=== PATIENT | female | born 1965 | race African-American/Black ===

== ENCOUNTER → 2016-03-29 | Outpatient (REF) | payer OTHER | LOC: M SFHCPLAZ 11:37 | PROVIDERS: ATTEND Family Medicine | DX: G40.909 Epilepsy, unspecified, not intractable, without status epilepticus (principal) ==

== ENCOUNTER → 2016-04-09 | Outpatient (REF) | payer OTHER ==
[2016-04-09 11:49] LABS: MEAN CORPUSCULAR HEMOGLOBIN 30.6 pg (27.0-33.0); MEAN CORPUSCULAR HGB CONC 33.7 g/dl (32.0-36.5); MEAN CORPUSCULAR VOLUME 90.8 fl (80.0-96.0); RED CELL DISTRIBUTION WIDTH 12.2 % (11.5-14.5); WHITE BLOOD COUNT 5.1 K/mm3 (4.0-10.0)
== END ==
LOC: M SFHCPLAZ 08:58
PROVIDERS: ATTEND Internal Medicine
DX: E11.9 Type 2 diabetes mellitus without complications (principal); R56.9 Unspecified convulsions; I10 Essential (primary) hypertension; E78.2 Mixed hyperlipidemia

== ENCOUNTER → 2016-05-25 | Outpatient (REF) | payer OTHER ==
[2016-05-25 13:11] LABS: ANION GAP 7 MEQ/L (8-16); BASO % 0.5 % (0.0-1.0); BLOOD UREA NITROGEN 14 MG/DL (7-18); CALCIUM LEVEL 8.5 MG/DL (8.5-10.1); CARBON DIOXIDE LEVEL 29 MEQ/L (21-32); CHLORIDE LEVEL 102 MEQ/L (98-107); CREATININE FOR GFR 0.95 MG/DL (0.55-1.02); EOS % 0.9 % (0.0-3.0); GLOMERULAR FILTRATION RATE > 60.0 (>51); GLUCOSE, FASTING 62 MG/DL (70-105); LARGE UNSTAINED CELL # 0.1 K/mm3 (0.0-0.4); LARGE UNSTAINED CELL % 1.7 % (0.0-4.0); LYMPH % 62.5 % (24.0-44.0); MEAN CORPUSCULAR HEMOGLOBIN 30.7 pg (27.0-33.0); MEAN CORPUSCULAR HGB CONC 33.5 g/dl (32.0-36.5); MEAN CORPUSCULAR VOLUME 91.7 fl (80.0-96.0); MONO # 0.3 K/mm3 (0.0-0.8); MONO % 6.9 % (0.0-5.0); NEUTROPHILS # 1.3 K/mm3 (1.8-7.7); NEUTROPHILS % 27.5 % (36.0-66.0); PLATELET COUNT, AUTOMATED 207 k/mm3 (150-450); POTASSIUM SERUM 4.8 MEQ/L (3.5-5.1); RED CELL DISTRIBUTION WIDTH 11.9 % (11.5-14.5); SODIUM LEVEL 138 MEQ/L (136-145); TOTAL PROTEIN 7.9 GM/DL (6.4-8.2); WHITE BLOOD COUNT 4.8 K/mm3 (4.0-10.0)
[2016-05-26 10:15] LABS: FREE KAPPA LIGHT CHAINS SERUM 155.04 mg/L (3.30-19.40); FREE LAMBDA LIGHT CHAINS SERUM 55.73 mg/L (5.71-26.30); KAPPA/LAMBDA RATIO SERUM 2.78 (0.26-1.65)
[2016-05-27 10:03] LABS: ALBUMIN 3.82 GM/DL (3.29-5.55); ALBUMIN % 48.3 % (55.8-66.1); GAMMA GLOBULIN % 29.3 % (11.1-18.8)
== END ==
LOC: M LABDRAWP 11:26
PROVIDERS: ATTEND Internal Medicine Medical Oncology
DX: Z01.818 Encounter for other preprocedural examination (principal); D47.2 Monoclonal gammopathy

== ENCOUNTER → 2016-05-25 | Outpatient (REF) | payer OTHER ==
[2016-05-25 13:10] LABS: ANION GAP 7 MEQ/L (8-16); BLOOD UREA NITROGEN 14 MG/DL (7-18); CALCIUM LEVEL 8.4 MG/DL (8.5-10.1); CARBON DIOXIDE LEVEL 28 MEQ/L (21-32); CHLORIDE LEVEL 103 MEQ/L (98-107); CREATININE FOR GFR 0.96 MG/DL (0.55-1.02); GLOMERULAR FILTRATION RATE > 60.0 (>51); GLUCOSE, FASTING 63 MG/DL (70-105); POTASSIUM SERUM 4.8 MEQ/L (3.5-5.1); SODIUM LEVEL 138 MEQ/L (136-145)
== END ==
LOC: M SFHCPLAZ 10:01
PROVIDERS: ATTEND Internal Medicine
DX: I10 Essential (primary) hypertension (principal)

== ENCOUNTER → 2016-05-31 | Outpatient (CLI) | payer OTHER ==
--- NOTE | 2016-05-31 10:44 | REP ---
Left foot CT for osteoarthritis: There are no comparison studies. There is mild spurring of the tibiotalar articulation anteriorly without joint space narrowing compatible with mild osteoarthritis. The subtalar articulation is unremarkable. Sustentaculum is unremarkable. The tarsal articulations and the tarsometatarsal articulations are unremarkable. The metatarsophalangeal articulations are unremarkable except for mild spurring at the great toe compatible with mild great toe osteoarthritis. The PIP and DIP articulations are unremarkable. Mineralization is normal. Signed by Zachery Burris MD 05/31/2016 10:36 A
== END ==
LOC: M RAD 09:44
PROVIDERS: ATTEND Physician Assistant
DX: M19.072 Primary osteoarthritis, left ankle and foot (principal)

== ENCOUNTER → 2016-06-24 | Outpatient (REF) | payer OTHER | LOC: M SFHCPLAZ 14:25 | PROVIDERS: ATTEND Family Medicine | DX: I10 Essential (primary) hypertension (principal); E55.9 Vitamin D deficiency, unspecified; Z53.9 Procedure and treatment not carried out, unspecified reason ==

== ENCOUNTER 2016-12-04 04:04 | Emergency (ER) | payer MEDICAID, OTHER ==
[~2016-12-04] VITALS: Ht 162.6 cm; Wt 85.0 kg
[2016-12-04 04:09] VITALS: BP 144/93
[2016-12-04] MEDS ORDERED: AMLO1TAB21 PO (04:15)
[2016-12-04] MEDS ORDERED: OMEP40CA2 PO (04:15)
[2016-12-04] MEDS ORDERED: METF500T13 PO (04:15)
[2016-12-04] MEDS ORDERED: KETOROLAC 60 MG/2 ML VIAL (J1885) IM ONE (04:45)
[2016-12-04] MEDS ORDERED: KETO10TAB PO (05:10)
--- NOTE | 2016-12-04 09:24 | REP ---
REASON: Pain after trauma. There are no priors. Multiple views of the right ribs show no evidence of an acute fracture. The accompanying frontal view of the chest shows minimal patchy right CP angle opacities representing a change from the prior portable exam and likely secondary to subsegmental atelectatic change from splinting due to pain. IMPRESSION: No fracture. Lung field findings as described above. Signed by Lawrence Nino DO 12/04/2016 09:39 A
== END 2016-12-04 05:44 | disposition home or self-care (01) ==
LOC: M ED 04:04
DX: S20.221A Contusion of right back wall of thorax, initial encounter (principal); W01.198A Fall on same level from slipping, tripping and stumbling with subsequent striking against other object, initial encounter; Y92.89 Other specified places as the place of occurrence of the external cause; Y93.89 Activity, other specified; Y99.8 Other external cause status; E11.9 Type 2 diabetes mellitus without complications; I10 Essential (primary) hypertension; K21.9 Gastro-esophageal reflux disease without esophagitis; Z79.84 Long term (current) use of oral hypoglycemic drugs; Z79.899 Other long term (current) drug therapy; Z88.0 Allergy status to penicillin
CPT/HCPCS: 71101; 96372; 99282; J1885

== ENCOUNTER → 2017-04-08 | Outpatient (REF) | payer OTHER ==
[2017-04-08 16:37] LABS: ANION GAP 6 MEQ/L (8-16); BLOOD UREA NITROGEN 13 MG/DL (7-18); CALCIUM LEVEL 8.8 MG/DL (8.5-10.1); CARBON DIOXIDE LEVEL 30 MEQ/L (21-32); CHLORIDE LEVEL 105 MEQ/L (98-107); CREATININE FOR GFR 0.91 MG/DL (0.55-1.30); GLOMERULAR FILTRATION RATE > 60.0 (>51); GLUCOSE, FASTING 86 MG/DL (70-100); POTASSIUM SERUM 4.2 MEQ/L (3.5-5.1); SODIUM LEVEL 141 MEQ/L (136-145)
[2017-04-08 17:11] LABS: CREATININE, URINE 32.9 MG/DL; MALB URINE SIEMENS < 5.0 MG/L; MAU/CREAT RATIO 15.1 MCG/MG (0.0-30.0)
[2017-04-08 17:47] LABS: ESTIMATED AVERAGE GLUCOSE 126 MG/DL (60-110)
== END ==
LOC: M SFHCPLAZ 12:34
DX: E11.9 Type 2 diabetes mellitus without complications (principal); I10 Essential (primary) hypertension

== ENCOUNTER → 2017-04-27 | Outpatient (CLI) | payer OTHER | LOC: M WHC 12:55 | DX: Z12.31 Encounter for screening mammogram for malignant neoplasm of breast (principal); Z80.3 Family history of malignant neoplasm of breast | CPT/HCPCS: 77067 ==

== ENCOUNTER → 2017-09-08 | Outpatient (REF) | payer OTHER | LOC: M SFHCLERA 12:21 | DX: L93.0 Discoid lupus erythematosus (principal) | CPT/HCPCS: 88305 ==

== ENCOUNTER 2017-09-26 04:32 | Emergency (ER) | payer OTHER ==
[2017-09-26] MEDS: PANTOPRAZOLE 40MG INJ (PROTONIX) (C9113) IV (05:25)
[2017-09-26] MEDS: NS 500 ML IV (05:25)
[2017-09-26] MEDS: MORPHINE 4 MG/ML 1ML VIAL/SYRINGE (J2270) IV (05:30)
[2017-09-26 05:32] LABS: HEMATOCRIT 38.6 % (36.0-47.0); MEAN CORPUSCULAR HGB CONC 33.7 g/dl (32.0-36.5); MEAN CORPUSCULAR VOLUME 92.1 fl (80.0-96.0); PLATELET COUNT, AUTOMATED 160 10^3/uL (150-450); RED BLOOD COUNT 4.19 10^6/uL (4.00-5.40); WHITE BLOOD COUNT 8.7 10^3/uL (4.0-10.0)
[2017-09-26 05:33] LABS: ADD MANUAL DIFFER YES; DIFF SLIDE NUMBER 90; POSITIVE DIFF POS FLAG
[2017-09-26 05:44] LABS: ALBUMIN 3.2 GM/DL (3.2-5.2); ALBUMIN/GLOBULIN RATIO 0.64 (1.00-1.93); ALKALINE PHOSPHATASE 65 U/L (45-117); ALT/SGPT 19 U/L (12-78); ANION GAP 7 MEQ/L (8-16); AST/SGOT 10 U/L (7-37); BILIRUBIN,DIRECT 0.1 MG/DL (0.0-0.2); BILIRUBIN,TOTAL 0.3 MG/DL (0.2-1.0); BLOOD UREA NITROGEN 13 MG/DL (7-18); CALCIUM LEVEL 8.9 MG/DL (8.5-10.1); CARBON DIOXIDE LEVEL 29 MEQ/L (21-32); CHLORIDE LEVEL 109 MEQ/L (98-107); CREATININE FOR GFR 0.91 MG/DL (0.55-1.30); GLOMERULAR FILTRATION RATE > 60.0 (>51); GLUCOSE, FASTING 81 MG/DL (70-100); LIPASE 147 U/L (73-393); SODIUM LEVEL 145 MEQ/L (136-145); TOTAL PROTEIN 8.2 GM/DL (6.4-8.2)
[2017-09-26 05:47] LABS: ATYPICAL LYMPH 3 % (0-5); LYMPHOCYTES 52 % (16-52); MONOCYTES 4 % (0-8); NEUTROPHILS 41 % (35-75); PLATELET ESTIMATE NORMAL (NORMAL)
[2017-09-26] MEDS: GASTROGRAFIN SOLUTION 30ML PO ×2 (05:59→06:29)
[2017-09-26 07:06] LABS: APPEARANCE, URINE CLEAR (CLEAR); BACTERIA, URINE AUTO 1+ (NEGATIVE); BILIRUBIN, URINE AUTO NEGATIVE (NEGATIVE); BLOOD, URINE BLOOD NEGATIVE (NEGATIVE); COLOR, URINE STRAW (YELLOW); GLUCOSE, URINE (UA) AUTO NEGATIVE (NEGATIVE); KETONE, URINE AUTO NEGATIVE (NEGATIVE); LEUKOCYTE ESTERASE, URINE AUTO NEGATIVE (NEGATIVE); MUCUS, URINE SMALL (NEGATIVE); NITRITE, URINE AUTO NEGATIVE (NEGATIVE); PROTEIN, URINE AUTO NEGATIVE (NEGATIVE); RBC, URINE AUTO 1 /HPF (0-3); SPECIFIC GRAVITY URINE AUTO 1.004 (1.002-1.035); SQUAMOUS EPITHELIAL CELL UR AU 3 /HPF (0-6); UROBILINOGEN, URINE AUTO 0.2 mg/dL (0.0-2.0); WBC, URINE AUTO 1 /HPF (0-3)
[2017-09-26] MEDS ORDERED: ISOVUE-370 76% 100ML VIAL (Q9967) As Ordered (07:17)
== END 2017-09-26 09:13 | disposition home or self-care (01) ==
LOC: M ED 04:32
DX: K21.9 Gastro-esophageal reflux disease without esophagitis (principal); Z98.84 Bariatric surgery status; E11.9 Type 2 diabetes mellitus without complications; I10 Essential (primary) hypertension; J45.909 Unspecified asthma, uncomplicated; Z88.0 Allergy status to penicillin; Z79.899 Other long term (current) drug therapy
CPT/HCPCS: C9113

== ENCOUNTER → 2017-10-05 | Outpatient (CLI) | payer OTHER ==
[2017-10-05 14:35] LABS: ANION GAP 8 MEQ/L (8-16); BLOOD UREA NITROGEN 15 MG/DL (7-18); CALCIUM LEVEL 8.8 MG/DL (8.5-10.1); CARBON DIOXIDE LEVEL 28 MEQ/L (21-32); CHLORIDE LEVEL 106 MEQ/L (98-107); GLOMERULAR FILTRATION RATE > 60.0 (>51); GLUCOSE, FASTING 83 MG/DL (70-100); POTASSIUM SERUM 3.7 MEQ/L (3.5-5.1); SODIUM LEVEL 142 MEQ/L (136-145)
== END ==
LOC: M LAB 13:06
DX: Z01.812 Encounter for preprocedural laboratory examination (principal); M20.12 Hallux valgus (acquired), left foot; M20.42 Other hammer toe(s) (acquired), left foot
CPT/HCPCS: 93005

== ENCOUNTER 2017-10-11 05:37 | Day surgery (SDC) | payer OTHER ==
[2017-10-11] MEDS ORDERED: ROPIvacaine 0.5% 30 ML INJECTION (J2795 PER 1MG) (05:38)
[2017-10-11] MEDS ORDERED: dexameTHASONE 10 MG/1 ML VIAL PRES.FREE (J1100) (05:38)
[2017-10-11] MEDS ORDERED: fentaNYL 100 MCG/2 ML INJECTION (J3010) As Ordered ×3 (06:50→09:37)
[2017-10-11] MEDS ORDERED: MIDAZOLAM INJ 2 MG/2 ML VIAL (J2250) As Ordered ×2 (06:50→07:14)
[2017-10-11] MEDS ORDERED: LIDOCAINE 2% INJ 100 MG/5 ML SDV (FOR ANES.) As Ordered (07:14)
[2017-10-11] MEDS ORDERED: PROPOFOL 200 MG/20 ML VIAL As Ordered ×2 (07:14→08:18)
[2017-10-11] MEDS ORDERED: ROCURONIUM BROMIDE 50 MG/5 ML VIAL As Ordered (07:14)
[2017-10-11] MEDS: fentaNYL 100 MCG/2 ML INJECTION (J3010) IV ×2 (07:19→11:55)
[2017-10-11] MEDS: MIDAZOLAM INJ 2 MG/2 ML VIAL (J2250) IV (07:19)
[2017-10-11] MEDS ORDERED: dexameTHASONE 4 MG/ML 1ML VIAL (J1100) As Ordered (08:37)
[2017-10-11] MEDS ORDERED: HYDROmorphone HCL 2 MG/ML 1ML VIAL (J1170) As Ordered (10:08)
[2017-10-11] MEDS: BUPIVACAINE HCL 0.5% 30 ML VIAL As Ordered (10:48)
[2017-10-11] MEDS: LR 1,000 ML IV (11:47)
[2017-10-11] MEDS ORDERED: PERCOCET 5MG/325MG TAB As Ordered (11:53)
[2017-10-11] MEDS: PERCOCET 5MG/325MG TAB PO (11:55)
[2017-10-11] MEDS ORDERED: oxyCODONE 5MG TAB PO ×2 (12:00)
[2017-10-11] MEDS ORDERED: LR 1,000 ML IV (12:00)
[2017-10-11] MEDS ORDERED: ONDANSETRON 4MG/2ML VIAL (J2405) IV (12:00)
== END 2017-10-11 13:35 | disposition home or self-care (01) ==
LOC: M SDC 05:37
DX: M20.12 Hallux valgus (acquired), left foot (principal); M20.42 Other hammer toe(s) (acquired), left foot; Z79.899 Other long term (current) drug therapy
CPT/HCPCS: 28296

== ENCOUNTER → 2017-11-08 | Outpatient (CLI) | payer OTHER ==
[~2017-11-08] MED LIST: GASTROGRAFIN SOLUTION 30ML (Q9963) As Ordered; ISOVUE-370 76% 100ML VIAL (Q9967) As Ordered
[2017-11-08 12:01] LABS: BASO % 0.2 % (0.0-1.0); EOS % 0.4 % (0.0-3.0); HEMATOCRIT 35.9 % (36.0-47.0); HEMOGLOBIN 12.3 g/dl (12.0-15.5); IMMATURE GRANULOCYTE % 0.2 % (0-3.0); LYMPH # 2.5 10^3/uL (1.5-4.5); LYMPH % 49.8 % (24.0-44.0); MEAN CORPUSCULAR HEMOGLOBIN 31.1 pg (27.0-33.0); MEAN CORPUSCULAR HGB CONC 34.3 g/dl (32.0-36.5); MEAN CORPUSCULAR VOLUME 90.7 fl (80.0-96.0); MONO # 0.3 10^3/uL (0.0-0.8); MONO % 6.8 % (0.0-5.0); NEUTROPHILS # 2.1 10^3/uL (1.8-7.7); NEUTROPHILS % 42.6 % (36.0-66.0); PLATELET COUNT, AUTOMATED 132 10^3/uL (150-450); RED BLOOD COUNT 3.96 10^6/uL (4.00-5.40); RED CELL DISTRIBUTION WIDTH 12.6 % (11.5-14.5)
[2017-11-08 12:53] LABS: ALBUMIN 3.5 GM/DL (3.2-5.2); ALKALINE PHOSPHATASE 73 U/L (45-117); ALT/SGPT 21 U/L (12-78); ANION GAP 7 MEQ/L (8-16); AST/SGOT 21 U/L (7-37); BILIRUBIN,TOTAL 0.3 MG/DL (0.2-1.0); BLOOD UREA NITROGEN 12 MG/DL (7-18); CALCIUM LEVEL 8.9 MG/DL (8.5-10.1); CARBON DIOXIDE LEVEL 24 MEQ/L (21-32); CHLORIDE LEVEL 112 MEQ/L (98-107); CREATININE FOR GFR 0.84 MG/DL (0.55-1.30); GLOMERULAR FILTRATION RATE > 60.0 (>51); GLUCOSE, FASTING 96 MG/DL (70-100); LIPASE 137 U/L (73-393); POTASSIUM SERUM 3.7 MEQ/L (3.5-5.1); SODIUM LEVEL 143 MEQ/L (136-145); TOTAL PROTEIN 8.8 GM/DL (6.4-8.2)
[2017-11-08 17:00] LABS: ALBUMIN/GLOBULIN RATIO 0.66 (1.00-1.93)
== END ==
LOC: M RAD 11:38
DX: R10.0 Acute abdomen (principal); Z98.84 Bariatric surgery status
CPT/HCPCS: Q9963

== ENCOUNTER → 2017-11-10 | Outpatient (REF) | payer OTHER | LOC: M SFHCPLAZ 15:39 | DX: R10.10 Upper abdominal pain, unspecified (principal) ==

== ENCOUNTER → 2017-11-14 | Outpatient (REF) | payer OTHER ==
[2017-11-14 20:46] LABS: BASO % 0.2 % (0.0-1.0); EOS % 0.4 % (0.0-3.0); HEMATOCRIT 38.5 % (36.0-47.0); HEMOGLOBIN 12.7 g/dl (12.0-15.5); IMMATURE GRANULOCYTE % 0.2 % (0-3.0); LYMPH # 2.2 10^3/uL (1.5-4.5); LYMPH % 49.9 % (24.0-44.0); MEAN CORPUSCULAR HEMOGLOBIN 30.4 pg (27.0-33.0); MEAN CORPUSCULAR VOLUME 92.1 fl (80.0-96.0); MONO # 0.3 10^3/uL (0.0-0.8); MONO % 6.2 % (0.0-5.0); NEUTROPHILS # 1.9 10^3/uL (1.8-7.7); NEUTROPHILS % 43.1 % (36.0-66.0); PLATELET COUNT, AUTOMATED 166 10^3/uL (150-450); RED BLOOD COUNT 4.18 10^6/uL (4.00-5.40); RED CELL DISTRIBUTION WIDTH 12.7 % (11.5-14.5); WHITE BLOOD COUNT 4.5 10^3/uL (4.0-10.0)
[2017-11-14 21:01] LABS: ALBUMIN 3.6 GM/DL (3.2-5.2); ALBUMIN/GLOBULIN RATIO 0.71 (1.00-1.93); ALKALINE PHOSPHATASE 82 U/L (45-117); ALT/SGPT 20 U/L (12-78); ANION GAP 11 MEQ/L (8-16); AST/SGOT 22 U/L (7-37); BILIRUBIN,TOTAL 0.3 MG/DL (0.2-1.0); BLOOD UREA NITROGEN 13 MG/DL (7-18); C REACTIVE PROTEIN QUANTITATIV 0.54 MG/DL (0.00-0.30); CALCIUM LEVEL 8.8 MG/DL (8.5-10.1); CARBON DIOXIDE LEVEL 23 MEQ/L (21-32); CHLORIDE LEVEL 108 MEQ/L (98-107); CREATININE FOR GFR 0.83 MG/DL (0.55-1.30); GLOMERULAR FILTRATION RATE > 60.0 (>51); GLUCOSE, FASTING 77 MG/DL (70-100); POTASSIUM SERUM 3.9 MEQ/L (3.5-5.1); SODIUM LEVEL 142 MEQ/L (136-145); TOTAL PROTEIN 8.7 GM/DL (6.4-8.2)
[2017-11-17 00:06] LABS: ANA (HEP2) Positive (.)
== END ==
LOC: M SFHCLERA 15:46
DX: L93.0 Discoid lupus erythematosus (principal)
CPT/HCPCS: 80053

== ENCOUNTER → 2017-11-23 | Outpatient (REF) | payer OTHER | LOC: M SFHCPLAZ 12:42 | DX: L93.0 Discoid lupus erythematosus (principal); R10.13 Epigastric pain ==

== ENCOUNTER 2017-12-23 10:28 | Emergency (ER) | payer OTHER | END 2017-12-23 11:19 | disposition home or self-care (01) | LOC: M ED 10:28 | DX: H61.22 Impacted cerumen, left ear (principal); E11.9 Type 2 diabetes mellitus without complications; I10 Essential (primary) hypertension; K21.9 Gastro-esophageal reflux disease without esophagitis; Z98.84 Bariatric surgery status; Z79.899 Other long term (current) drug therapy | CPT/HCPCS: 69209 ==

== ENCOUNTER 2018-01-05 08:39 | Day surgery (SDC) | payer OTHER ==
[~2018-01-05 08:39] MED LIST changes: -GASTROGRAFIN SOLUTION 30ML (Q9963) As Ordered; -ISOVUE-370 76% 100ML VIAL (Q9967) As Ordered; +PROPOFOL 200 MG/20 ML VIAL As Ordered
[2018-01-05] MEDS ORDERED: LIDOCAINE 2% INJ 100 MG/5 ML SDV (FOR ANES.) As Ordered (08:40)
[2018-01-05] MEDS: NS 1,000 ML IV (08:55)
[2018-01-05] MEDS ORDERED: fentaNYL 100 MCG/2 ML INJECTION (J3010) As Ordered (09:13)
[2018-01-05] MEDS ORDERED: LABETALOL HCL 100 MG/20 ML VIAL As Ordered (10:04)
[2018-01-05] MEDS ORDERED: PROPOFOL 200 MG/20 ML VIAL As Ordered (10:28)
== END 2018-01-05 11:05 | disposition home or self-care (01) ==
LOC: M OPP 08:39
DX: Z12.11 Encounter for screening for malignant neoplasm of colon (principal); D12.3 Benign neoplasm of transverse colon; K57.30 Diverticulosis of large intestine without perforation or abscess without bleeding; K64.8 Other hemorrhoids; K64.4 Residual hemorrhoidal skin tags; K22.8 Other specified diseases of esophagus; K91.89 Other postprocedural complications and disorders of digestive system; I10 Essential (primary) hypertension; E11.9 Type 2 diabetes mellitus without complications; M32.9 Systemic lupus erythematosus, unspecified; R56.9 Unspecified convulsions; Z98.0 Intestinal bypass and anastomosis status
CPT/HCPCS: 45380

== ENCOUNTER → 2018-03-07 | Outpatient (CLI) | payer OTHER ==
[~2018-03-07] MED LIST changes: +AMLO1TAB21 PO; +ARNU1INH; +AUGM0.0534; +DOXE100CA PO; +DOXE50CA; +ESTR1TAB; +FAMO40TA3; +FAMO40TA3 PO; +GABA600T4 PO; +HYDR200T3; +HYDR200T3 PO; +INDO25CA PO; +KEPP10002 PO; +KETO10TAB PO; +LEVE250T5 PO; +LEVETIRACETAM; +METF500T13 PO; +OMEP40CA2 PO; +PENT1TAB8 PO; +PRED20TA; -PROPOFOL 200 MG/20 ML VIAL As Ordered; +[UNRECOGNIZED DRUG - MIXTURE]
--- NOTE | 2018-03-08 03:30 | REP ---
Clinical: Preoperative assessment . Comparison: 07/24/2015 . Technique: PA and lateral. Findings: The mediastinum and cardiac silhouette are normal. The lung eric are clear and without acute consolidation, effusion, or pneumothorax. The skeletal structures are intact and normal. Impression: 1. No acute cardiopulmonary process. Electronically Signed by Darrin Collins MD 03/08/2018 03:22 A
== END ==
LOC: M RAD 10:26
PROVIDERS: ATTEND Plastic Surgery Surgery of the Hand
DX: Z01.818 Encounter for other preprocedural examination (principal); N62 Hypertrophy of breast

== ENCOUNTER → 2018-03-13 | Outpatient (REF) | payer OTHER ==
[~2018-03-13] MED LIST changes: +AMLO10TA5 PO; +CHLO25TA PO; +LISI10TA4 PO
[2018-03-13 17:46] LABS: ALT/SGPT 31 U/L (12-78); BILIRUBIN,TOTAL 0.2 MG/DL (0.2-1.0); BLOOD UREA NITROGEN 22 MG/DL (7-18); CALCIUM LEVEL 8.6 MG/DL (8.5-10.1); CARBON DIOXIDE LEVEL 26 MEQ/L (21-32); CHLORIDE LEVEL 106 MEQ/L (98-107); CREATININE FOR GFR 0.98 MG/DL (0.55-1.30); GLOMERULAR FILTRATION RATE > 60.0 (>51); GLUCOSE, FASTING 124 MG/DL (70-100); POTASSIUM SERUM 4.4 MEQ/L (3.5-5.1); SODIUM LEVEL 141 MEQ/L (136-145); TOTAL PROTEIN 8.2 GM/DL (6.4-8.2); TROPONIN I < 0.02 NG/ML (< 0.10)
[2018-03-13 17:47] LABS: BASO % 0.3 % (0.0-1.0); EOS % 0.1 % (0.0-3.0); HEMATOCRIT 37.1 % (36.0-47.0); HEMOGLOBIN 12.3 g/dl (12.0-15.5); LYMPH # 2.3 10^3/uL (1.5-4.5); MEAN CORPUSCULAR HEMOGLOBIN 29.9 pg (27.0-33.0); MEAN CORPUSCULAR HGB CONC 33.2 g/dl (32.0-36.5); MONO # 0.6 10^3/uL (0.0-0.8); NEUTROPHILS # 4.4 10^3/uL (1.8-7.7); PLATELET COUNT, AUTOMATED 250 10^3/uL (150-450); RED BLOOD COUNT 4.12 10^6/uL (4.00-5.40); WHITE BLOOD COUNT 7.3 10^3/uL (4.0-10.0)
[2018-03-13 18:18] LABS: MALB URINE SIEMENS 5.2 MG/L; MAU/CREAT RATIO 3.9 MCG/MG (0.0-30.0)
== END ==
LOC: M SFHCPLAZ 15:11
PROVIDERS: ATTEND Family Medicine
DX: Z01.818 Encounter for other preprocedural examination (principal); I16.0 Hypertensive urgency

== ENCOUNTER → 2018-03-17 | Outpatient (REF) | payer OTHER ==
[~2018-03-17] MED LIST changes: +PERCOCET PO
[2018-03-17 14:25] LABS: ALBUMIN 2.9 GM/DL (3.2-5.2); BLOOD UREA NITROGEN 16 MG/DL (7-18); CALCIUM LEVEL 8.8 MG/DL (8.5-10.1); CARBON DIOXIDE LEVEL 26 MEQ/L (21-32); CHLORIDE LEVEL 103 MEQ/L (98-107); CREATININE FOR GFR 0.99 MG/DL (0.55-1.30); GLOMERULAR FILTRATION RATE > 60.0 (>51); GLUCOSE, FASTING 91 MG/DL (70-100); MAGNESIUM LEVEL 2.1 MG/DL (1.8-2.4); PHOSPHORUS LEVEL 3.8 MG/DL (2.5-4.9); POTASSIUM SERUM 4.1 MEQ/L (3.5-5.1); SODIUM LEVEL 139 MEQ/L (136-145)
== END ==
LOC: M SFHCPLAZ 11:21
PROVIDERS: ATTEND Family Medicine
DX: I10 Essential (primary) hypertension (principal)

== ENCOUNTER 2018-03-21 07:49 | Day surgery (SDC) | payer OTHER ==
[~2018-03-21] VITALS: Ht 162.6 cm; Wt 91.1 kg
[2018-03-21] VITALS (7 sets, daily range): BP systolic 135–178; BP diastolic 76–91
[~2018-03-21 07:49] MED LIST changes: -AMLO10TA5 PO; -CHLO25TA PO; -LISI10TA4 PO; +LR 1,000 ML IV ONE; -PERCOCET PO
[2018-03-21] MEDS ORDERED: CLINDAMYCIN 600 MG/50 ML PREMIX BAG As Ordered ONE (08:13)
[2018-03-21] MEDS ORDERED: MIDAZOLAM INJ 2 MG/2 ML VIAL (J2250) As Ordered ONE (08:22)
[2018-03-21] MEDS ORDERED: PROPOFOL 200 MG/20 ML VIAL As Ordered ONE (08:22)
[2018-03-21] MEDS ORDERED: LIDOCAINE 2% INJ 100 MG/5 ML SDV (FOR ANES.) As Ordered ONE (08:22)
[2018-03-21] MEDS ORDERED: fentaNYL 100 MCG/2 ML INJECTION (J3010) As Ordered ONE ×4 (08:22→14:34)
[2018-03-21] MEDS ORDERED: CHLO25TA PO (08:29)
[2018-03-21] MEDS ORDERED: AMLO10TA5 PO (08:29)
[2018-03-21] MEDS ORDERED: LISI10TA4 PO (08:29)
[2018-03-21] MEDS ORDERED: SCOPOLAMINE 1MG TRANSDERMAL PATCH As Ordered ONE (08:58)
[2018-03-21] MEDS ORDERED: SCOPOLAMINE 1MG TRANSDERMAL PATCH TOP ONE ×4 (09:15→09:30)
[2018-03-21] MEDS ORDERED: EPINEPHrine 1MG/ML INJ 30ML MD-VIAL As Ordered ONE (09:31)
[2018-03-21] MEDS ORDERED: LIDOCAINE 1% MDV 20ML VIAL As Ordered ONE (09:31)
[2018-03-21] MEDS ORDERED: HYDROmorphone HCL 2 MG/ML 1ML VIAL (J1170) As Ordered ONE (10:26)
[2018-03-21] MEDS ORDERED: dexameTHASONE 4 MG/ML 1ML VIAL (J1100) As Ordered ONE (10:33)
[2018-03-21] MEDS ORDERED: ONDANSETRON 4MG/2ML VIAL (J2405) As Ordered ONE ×2 (10:34→13:54)
[2018-03-21] MEDS ORDERED: HEPARIN SOD (PORCINE) 5000 UNITS/ML VIAL As Ordered ONE (13:06)
[2018-03-21] MEDS ORDERED: PHENYLephrine HCL 500 MCG/5 ML (100MCG/ML) SYRINGE (J2370) As Ordered ONE (13:33)
[2018-03-21] MEDS ORDERED: ROCURONIUM BROMIDE 50 MG/5 ML VIAL As Ordered ONE (13:40)
[2018-03-21] MEDS ORDERED: GLYCOPYRROLATE INJ 0.2 MG/ML 2 ML VIAL As Ordered ONE (13:59)
[2018-03-21] MEDS ORDERED: NEOSTIGMINE 10 MG/10 ML VIAL (J2710) As Ordered ONE (13:59)
--- NOTE | 2018-03-21 14:15 | POST-OPPD ---
Postoperative Procedure Note Date Of Procedure: Mar 21, 2018 PREOPERATIVE DIAGNOSIS: Bilateral breast hypertrophy. POSTOPERATIVE DIAGNOSIS: same FINDINGS: Large breasts PROCEDURE: Bilateral breast reduction. SURGEON: Dr Leavitt BRICK SETTER: Dr Yun ANESTHESIA: General SPECIMENS: Right breast 769g, Left breast 764 g, Liposuction aspirate 200cc ESTIMATED BLOOD LOSS: 50cc REPLACED: none DRAINS: SILAS drains 10mm x 2 COMPLICATIONS: none POSTOPERATIVE CONDITION: stable YARELY LEAVITT DO Mar 21, 2018 14:15
[2018-03-21] MEDS: fentaNYL 100 MCG/2 ML INJECTION (J3010) IV PRN ×4 (14:35→14:50)
[2018-03-21] MEDS ORDERED: NORCO, ANEXSIA 5/325MG TABLET (HYDROcodone/ACETAMINOPHEN) As Ordered ONE (14:42)
[2018-03-21] MEDS: NORCO, ANEXSIA 5/325MG TABLET (HYDROcodone/ACETAMINOPHEN) PO PRN ×2 (14:45→15:15)
[2018-03-21] MEDS ORDERED: MORPHINE 10 MG/ML 1ML VIAL (J2270) As Ordered ONE (14:53)
[2018-03-21] MEDS: MORPHINE 10 MG/ML 1ML VIAL (J2270) IV PRN ×5 (14:55→15:15)
[2018-03-21] MEDS ORDERED: LR 1,000 ML IV SCH ×2 (15:00)
[2018-03-21] MEDS ORDERED: MORPHINE 4 MG/ML 1ML VIAL/SYRINGE (J2270) IM PRN (15:00)
[2018-03-21] MEDS ORDERED: CLINDAMYCIN 600 MG in APPROPRIATE DILUENT 1 EA IV SCH (15:00)
[2018-03-21] MEDS ORDERED: ONDANSETRON 4MG/2ML VIAL (J2405) IV PRN (15:00)
[2018-03-21] MEDS: PERCOCET 5MG/325MG TAB PO PRN ×2 (16:33→22:26)
--- NOTE | 2018-03-21 17:10 | RO ---
DATE OF PROCEDURE: 03/21/2018 PREPROCEDURE DIAGNOSIS: Bilateral breast hypertrophy. POSTPROCEDURE DIAGNOSIS: Bilateral breast hypertrophy. PROCEDURE: Bilateral breast reduction. SURGEON: Dr. Louann Taylor EDITOR BOOK: Dr. Yun ANESTHESIA: General. SPECIMENS SENT: Right breast 769 grams, left breast 764 grams, liposuction aspirate 200 mL. BLOOD LOSS: 50 mL. No replacement needed. There are two 10 mm Patrice-Zacarias drains. There were no complications. DESCRIPTION OF PROCEDURE: This is a 53-year-old female who presents to my office complaining of severe upper back pain related to her large pendulous breasts. The patient failed the medical treatment, and she is a good candidate for surgical treatment for symptomatic macromastia. All the risks and benefits and alternatives discussed with the patient preoperatively including but not limited to bleeding, infection, seroma, tissue loss, nipple loss, delayed healing. The patient understands and ready to proceed. We did her preoperative markings in upright position in preoperative holding area. Her sternal notch to nipple areolar complex measures 32-1/2 bilaterally, her inframammary line measures 23; that is where her nipple areolar complex is going to be measured to. After the markings were completed, she was brought into the operating room, placed in supine position. Sequential stockings placed on the lower calves. Antibiotics were given, general anesthesia was induced. She was prepped and draped in the usual sterile fashion. We started our procedure on the right side. The patient did not have nipple areolar complex hypertrophy. She has her own nipples at 38 mm in diameter and that is what we used to measure them out. That is the size we are planning on keeping, so the nipple areolar complex was scored with #10 blade and then the rest of the incisions were scored and then started resecting with electrocautery along superomedial pedicle pattern. Inferolateral portion of the breast was removed using electrocautery, hemostasis was obtained and then the pedicle was de-epithelialized using Cho scissors, and then the whole wound was irrigated with normal saline-bacitracin irrigation. At this point, we turned our pedicle superiorly at the new location. The skin was designed as a keyhole incision, so the nipple areolar complex was placed in this new keyhole, and we started closing the vertical limb with #3-0 Monocryl sutures. Then, the breast mound was conformed using #0 Vicryl sutures placed laterally and then medially, recreating a new mound and excess tissue was then measured out inferiorly and resected creating the horizontal incision. Total excision was 769 grams on the right breast. Horizontal incision was closed in layers with interrupted #0 Vicryl, #3-0 Monocryl sutures, and running #3-0 V-Loc Monocryl suture. A 10 mm Patrice-Zacarias drain was placed through the same incision laterally on the lateral side. Then, nipple areolar complex was set in place in a keyhole with interrupted #3-0 Monocryl sutures, #4-0 Monocryl sutures, and #5-0 plain gut sutures. Then, we turned our attention to the left side and a mirror procedure was carried out. The nipple areolar complex is her own at 38 mm of diameter, so it was outlined and then we started completing our resection along the superomedial pedicle pattern, removing inferolateral portion of the breast. Electrocautery was used for the removal and also for coagulation. The pedicle was de-epithelialized using Cho scissors and then the whole area was irrigated with normal saline-bacitracin solution. The nipple areolar complex was then turned superiorly on its pedicle to its new position at 23 cm from sternal notch, and we started closing the vertical limb. #3-0 Monocryl sutures were used for that. The breast mound was recreated and conformed by #0 Vicryl sutures. Excess tissue was measured out in a symmetrical fashion to the right breast and excised, creating the horizontal scar. Horizontal scar started closure with interrupted #3-0 Monocryl sutures. 10 mm Patrice-Zacarias drain was placed at the lateral portion of the horizontal incision. As a note, in this patient, the area between the two breasts, just inferior to the sternum, she has a discrepancy there, which we have discussed preoperatively that the scar is going to be extended medially and in order to alleviate that extra ptosis that she has from the sternum with the skin unfolding over before becoming abdomen. So, that area was also taken in consideration and excised together with the inferior portion of excess skin, creating a smooth uniform look in between the breasts continuous from the sternum. Then, at that point, we reassessed the breasts. There was some excess tissue on the lateral chest wall, extending from the lateral portions of the breast, so suction-assisted lipectomy was carried out on those areas bilaterally to alleviate those bulging portions of the skin and 200 mL of liposuction aspirate was evacuated and sent to pathology. Steri-Strips were applied to all the incisions, Xeroform to nipple areolar complex, a bulky dressing, and a surgical bra. The patient was extubated in the operating room without any difficulties and transferred to the recovery room in stable condition.
[2018-03-21] MEDS: CLINDAMYCIN 600 MG in APPROPRIATE DILUENT 1 EA IV SCH ×2 (17:23→22:26)
[2018-03-21] MEDS: MORPHINE 4 MG/ML 1ML VIAL/SYRINGE (J2270) IV PRN ×2 (19:16→23:24)
[2018-03-22] MEDS: PERCOCET 5MG/325MG TAB PO PRN ×3 (03:08→10:20)
[2018-03-22] MEDS: CLINDAMYCIN 600 MG in APPROPRIATE DILUENT 1 EA IV SCH (05:52)
[2018-03-22 06:00] VITALS: BP 126/74
--- NOTE | 2018-03-22 08:26 | IPNPDOC ---
Subjective General Date/Time Seen The patient was seen on 03/22/18 at 08:20. Subject Chief Complaint/History The patient is a 53-year-old female admitted with a reason for visit of Bilateral Breast Hypertrophy. S/p BBR POD 1. Doing well this morning. Patient had pain during the night lateral chest bilateral, controlled with pain meds. This morning pain controlled. No other complains. Ambulated, tolerating PO. Current Medications Current Medications Current Medications Acetaminophen/ Hydrocodone Bitart ([place], Anexsia 5/325) 1 tab ASDIRECTED PRN PO MILD/MODERATE PAIN (PS 1-7) Last administered on 03/21/18at 15:15; Start 03/21/18 at 15:00; Stop 03/21/18 at 15:31; Status DC Clindamycin Phosphate 600 mg/ IV Miscellaneous Supplies 50 ml @ 100 mls/hr Q6H IV ; Start 03/21/18 at 15:00; Stop 03/21/18 at 16:41; Status DC Clindamycin Phosphate 600 mg/ IV Miscellaneous Supplies 50 ml @ 100 mls/hr Q6H IV Last administered on 03/22/18at 05:52; Start 03/21/18 at 17:00; Stop 03/22/18 at 05:30; Status DC Fentanyl Citrate (Sublimaze) 25 mcg Q5MP PRN IV MODERATE PAIN (PS 4-7) Last administered on 03/21/18at 14:50; Start 03/21/18 at 15:00; Stop 03/21/18 at 15:31; Status DC Lactated Ringer's 1,000 ml @ 50 mls/hr Q20H IV ; Start 03/21/18 at 15:00 Lactated Ringer's 1,000 ml @ 100 mls/hr Q10H IV ; Start 03/21/18 at 15:00; Stop 03/21/18 at 16:00; Status DC Morphine Sulfate (Morphine Sulfate Inj) 2 mg Q5M PRN IV MODERATE/SEVERE PAIN (PS 5-10) Last administered on 03/21/18at 15:15; Start 03/21/18 at 15:00; Stop 03/21/18 at 15:31; Status DC Morphine Sulfate (Morphine Sulfate Inj) 4 mg Q4H PRN IM SEVERE PAIN (PS 8-10); Start 03/21/18 at 15:00 Morphine Sulfate (Morphine Sulfate Inj) 4 mg Q4H PRN IV SEVERE PAIN (PS 8-10) Last administered on 03/21/18at 23:24; Start 03/21/18 at 15:00 Ondansetron HCl (ZOFRAN INJection) 4 mg Q4HP PRN IV NAUSEA OR VOMITING; Start 03/21/18 at 15:00; Stop 03/21/18 at 16:00; Status DC Oxycodone/ Acetaminophen (Percocet 5mg/ 325mg Tablet) 2 tab Q4H PRN PO MODERATE PAIN (PS 5-7) Last administered on 03/22/18at 06:24; Start 03/21/18 at 15:00 Allergies Coded Allergies: Penicillins (Unverified Allergy, Intermediate, hives, 01/05/18) Penicillins Cross Reactors (Unverified Allergy, Unknown, 12/26/17) Objective Physical Examination Examination GENERAL APPEARANCE:Patient seen, laying in bed, awake, alert, and oriented. Comfortable, in no acute distress. SKIN: Warm and moist. BREAST: Incision dry, intact. SILAS drains with serosanguinous drainage. Lateral chest wall incisional pain on palpation. Post op swelling mild, symmetrical. NAC viable. Flaps viable, breasts soft. No pain HEENT: Normocephalic, atraumatic. [place] palpebral conjunctiva, anicteric sclerae. Lips and mucosa appear moist. NECK: Supple, no thyromegaly. No obvious jugular venous distention. LUNGS: Clear to auscultation bilaterally. HEART: No chest wall abnormalities. Vital Signs Vital Signs Date Time Temp Pulse Resp B/P (MAP) Pulse Ox O2 Delivery O2 Flow Rate FiO2 03/22/18 06:54 18 03/22/18 06:00 100.2 115 126/74 (91) 100 Room Air 03/21/18 15:10 2 I&Os I&O- Last 24 Hours up to 6 AM 03/22/18 06:00 Intake Total 2400 ml Output Total 100 ml Balance 2300 ml Impression Breast hypertrophy S/p Bilateral breast reduction Doing well. Pain controlled Resume all home medications Incentive spirometry F/up Dr Leavitt office Plan / VTE VTE Prophylaxis Ordered?: Yes YARELY LAEVITT DO Mar 22, 2018 08:26
[2018-03-22] MEDS ORDERED: PERCOCET PO (08:30)
[2018-03-22 10:00] VITALS: BP 135/73
== END 2018-03-22 12:20 | disposition home or self-care (01) ==
LOC: M SDC 07:49 → M MS5PR 15:50 → M SDC 03-22 12:20
PROVIDERS: ATTEND Plastic Surgery Surgery of the Hand
DX: N62 Hypertrophy of breast (principal); I10 Essential (primary) hypertension; M32.9 Systemic lupus erythematosus, unspecified; R56.9 Unspecified convulsions; Z88.0 Allergy status to penicillin; Z79.899 Other long term (current) drug therapy; Z90.710 Acquired absence of both cervix and uterus; Z87.891 Personal history of nicotine dependence; Z98.84 Bariatric surgery status
CPT/HCPCS: 19318; 88302; 88304; J1100; J1170; J2250; J2270; J2370; J2405; J2710; J3010

== ENCOUNTER → 2018-04-06 | Outpatient (REF) | payer OTHER ==
[~2018-04-06] MED LIST changes: +AMLO10TA5 PO; +CHLO25TA PO; +LISI10TA4 PO; -LR 1,000 ML IV ONE; +PERCOCET PO
[2018-04-06 13:27] LABS: APPEARANCE, URINE HAZY (CLEAR); BACTERIA, URINE AUTO NEGATIVE (NEGATIVE); BILIRUBIN, URINE AUTO NEGATIVE (NEGATIVE); BLOOD, URINE BLOOD NEGATIVE (NEGATIVE); COLOR, URINE YELLOW (YELLOW); GLUCOSE, URINE (UA) AUTO NEGATIVE (NEGATIVE); KETONE, URINE AUTO NEGATIVE (NEGATIVE); LEUKOCYTE ESTERASE, URINE AUTO NEGATIVE (NEGATIVE); NITRITE, URINE AUTO NEGATIVE (NEGATIVE); PROTEIN, URINE AUTO NEGATIVE (NEGATIVE); RBC, URINE AUTO 1 /HPF (0-3); SPECIFIC GRAVITY URINE AUTO 1.014 (1.002-1.035); SQUAMOUS EPITHELIAL CELL UR AU 2 /HPF (0-6); WBC, URINE AUTO 0 /HPF (0-3)
[2018-04-06 14:07] LABS: BASO % 0.2 % (0.0-1.0); EOS % 0.7 % (0.0-3.0); HEMATOCRIT 33.7 % (36.0-47.0); HEMOGLOBIN 10.8 g/dl (12.0-15.5); LYMPH # 2.8 10^3/uL (1.5-4.5); LYMPH % 47.7 % (24.0-44.0); MEAN CORPUSCULAR HEMOGLOBIN 29.8 pg (27.0-33.0); MEAN CORPUSCULAR VOLUME 92.8 fl (80.0-96.0); MONO # 0.4 10^3/uL (0.0-0.8); MONO % 7.4 % (0.0-5.0); NEUTROPHILS # 2.5 10^3/uL (1.8-7.7); NEUTROPHILS % 43.7 % (36.0-66.0); PLATELET COUNT, AUTOMATED 415 10^3/uL (150-450); RED BLOOD COUNT 3.63 10^6/uL (4.00-5.40); WHITE BLOOD COUNT 5.8 10^3/uL (4.0-10.0)
[2018-04-06 14:12] LABS: ALBUMIN 2.9 GM/DL (3.2-5.2); ALT/SGPT 23 U/L (12-78); BILIRUBIN,TOTAL 0.3 MG/DL (0.2-1.0); BLOOD UREA NITROGEN 19 MG/DL (7-18); CALCIUM LEVEL 8.8 MG/DL (8.5-10.1); CARBON DIOXIDE LEVEL 26 MEQ/L (21-32); CHLORIDE LEVEL 104 MEQ/L (98-107); COMPLEMENT C3 151 MG/DL (90-180); COMPLEMENT C4 44 MG/DL (10-40); GLOMERULAR FILTRATION RATE > 60.0 (>51); GLUCOSE, FASTING 87 MG/DL (70-100); POTASSIUM SERUM 4.4 MEQ/L (3.5-5.1); RHEUMATOID FACTOR QUANT 41.1 IU/ML (<15.0); SODIUM LEVEL 137 MEQ/L (136-145); TOTAL PROTEIN 8.4 GM/DL (6.4-8.2)
[2018-04-06 14:23] LABS: TOTAL PROTEIN,RANDOM URINE 24.5 MG/DL (0.0-12.0)
[2018-04-06 14:43] LABS: ERYTHROCYTE SEDIMENTATION RATE 91 mm/hr (0-30)
[2018-04-10 09:08] LABS: ANA (HEP2) Positive (.); ANTI DOUBLE STRAND-DNA AB <1 IU/mL (0-9); BETA-2 GLYCOPROTEIN I ABY IGA 14 (0-25); BETA-2 GLYCOPROTEIN I ABY IGG <9 (0-20); BETA-2 GLYCOPROTEIN I ABY IGM <9 (0-32); CARDIOLIPIN IGA ANTIBODY <9 APL U/mL (0-11); CARDIOLIPIN IGG ANTIBODY <9 GPL U/mL (0-14); CARDIOLIPIN IGM ANTIBODY <9 MPL U/mL (0-12); CYCLIC CITRULLINATED PEPTIDE 15 units (0-19); RNP ANTIBODY > 8.0 AI (0.0-0.9); SMITHS ANTIBODY 2.9 AI (0.0-0.9); SSA SJOGRENS A >8.0 AI (0.0-0.9); SSB SJOGRENS B <0.2 AI (0.0-0.9)
== END ==
LOC: M SFHCPLAZ 11:22
PROVIDERS: ATTEND Internal Medicine Rheumatology
DX: L93.0 Discoid lupus erythematosus (principal)

== ENCOUNTER → 2018-04-14 | Outpatient (REF) | payer OTHER ==
[2018-04-14 13:45] LABS: HEMATOCRIT 34.9 % (36.0-47.0); HEMOGLOBIN 11.1 g/dl (12.0-15.5); MEAN CORPUSCULAR HEMOGLOBIN 29.5 pg (27.0-33.0); MEAN CORPUSCULAR HGB CONC 31.8 g/dl (32.0-36.5); MEAN CORPUSCULAR VOLUME 92.8 fl (80.0-96.0); PLATELET COUNT, AUTOMATED 309 10^3/uL (150-450); RED BLOOD COUNT 3.76 10^6/uL (4.00-5.40); WHITE BLOOD COUNT 4.8 10^3/uL (4.0-10.0)
[2018-04-14 14:07] LABS: PERCENT SATURATION 31.5 % (13.2-45.0)
[2018-04-14 15:42] LABS: HEMATOCRIT 34.9 % (36.0-47.0)
== END ==
LOC: M SFHCPLAZ 10:56
PROVIDERS: ATTEND Family Medicine
DX: D64.9 Anemia, unspecified (principal)

== ENCOUNTER 2018-05-26 07:23 | Emergency (ER) | payer OTHER ==
[~2018-05-26] VITALS: Ht 162.6 cm; Wt 89.7 kg
[2018-05-26] MEDS ORDERED: OMEP40CA2 PO (07:52)
[2018-05-26] MEDS ORDERED: HYDR200T3 PO (07:52)
[2018-05-26] MEDS ORDERED: CALC1TAB9 PO (07:52)
[2018-05-26] MEDS ORDERED: VITA500T17 PO (07:52)
[2018-05-26] MEDS ORDERED: PANT40TA3 PO (07:52)
[2018-05-26 07:55] LABS: BASO % 0.2 % (0.0-1.0); EOS # 0.1 10^3/uL (0.0-0.50); HEMOGLOBIN 12.7 g/dl (12.0-15.5); LYMPH # 3.1 10^3/uL (1.5-4.5); LYMPH % 62.5 % (24.0-44.0); MEAN CORPUSCULAR HEMOGLOBIN 30.7 pg (27.0-33.0); MEAN CORPUSCULAR HGB CONC 33.4 g/dl (32.0-36.5); MEAN CORPUSCULAR VOLUME 91.8 fl (80.0-96.0); MONO # 0.4 10^3/uL (0.0-0.8); MONO % 7.3 % (0.0-5.0); NEUTROPHILS # 1.4 10^3/uL (1.8-7.7); NEUTROPHILS % 28.8 % (36.0-66.0); PLATELET COUNT, AUTOMATED 188 10^3/uL (150-450); RED BLOOD COUNT 4.14 10^6/uL (4.00-5.40); WHITE BLOOD COUNT 4.9 10^3/uL (4.0-10.0)
--- NOTE | 2018-05-26 07:56 | REP ---
Head CT without contrast: History: Facial droop. Stroke. Comparison study: September 25, 2015. CT findings: Bone window settings demonstrate an intact bony calvarium. There is no evidence of skull fracture or incidental bony calvarial lesion. The visualized paranasal sinuses appear clear. No intraorbital abnormality is seen. On soft tissue window setting images; the lateral, third, and fourth ventricles are normal in size and position. Wong-white differentiation pattern is normal above and below the tentorium. There are is no evidence of intracranial hemorrhage. No mass, edema, infarction, or midline shift is seen. No extra-axial fluid collection is appreciated. Impression: Negative noncontrast head CT. Electronically Signed by Gerhard Cui MD 05/26/2018 07:54 A
[2018-05-26 08:06] LABS: INR 0.95; PARTIAL THROMBOPLASTIN TIME 28.6 SECONDS (25.4-37.6); PROTHROMBIN TIME 12.8 SECONDS (12.1-14.4)
--- NOTE | 2018-05-26 08:10 | REP ---
Portable chest x-ray: Single view. History: CVA. Comparison study: February 2018. Findings: There is mild linear fibrosis in both lung bases unchanged from comparison study. The lungs are otherwise clear. Pleural angles are sharp. Heart size is normal. Pulmonary vasculature is not increased. EKG electrodes are seen. 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 No acute bony abnormality is seen to Impression: Mild bibasilar linear fibrosis. Otherwise no acute disease. Electronically Signed by Gerhard Cui MD 05/26/2018 08:01 A
[2018-05-26] MEDS ORDERED: ALTEPLASE RECOMBINANT IV ONE (08:30)
[2018-05-26] MEDS ORDERED: NS 1,000 ML IV ONE (08:30)
[2018-05-26] MEDS ORDERED: ALTEPLASE 100MG INJ (J2997) IV ONE (08:30)
[2018-05-26] MEDS ORDERED: DILUENT IV ONE (08:30)
[2018-05-26] MEDS ORDERED: LABETALOL HCL 100 MG/20 ML VIAL As Ordered ONE ×2 (08:39→08:43)
[2018-05-26 08:44] VITALS: BP 167/78
[2018-05-26 09:30] LABS: BLOOD UREA NITROGEN 14 MG/DL (7-18); CALCIUM LEVEL 8.5 MG/DL (8.5-10.1); CARBON DIOXIDE LEVEL 27 MEQ/L (21-32); CHLORIDE LEVEL 107 MEQ/L (98-107); CPK CREATINE PHOSPHOKINASE 51 U/L (26-192); CREATININE FOR GFR 0.84 MG/DL (0.55-1.30); GLOMERULAR FILTRATION RATE > 60.0 (>51); GLUCOSE, FASTING 94 MG/DL (70-100); MB/CK RELATIVE INDEX 2.55 (< OR =4); POTASSIUM SERUM 3.7 MEQ/L (3.5-5.1); SODIUM LEVEL 141 MEQ/L (136-145); TROPONIN I < 0.02 NG/ML (< 0.10)
--- NOTE | 2018-05-26 19:33 | ECGEPIP ---
Stationary ECG Study [facility] - ED Test Date: 2018-05-26 Pat Name: TERRI MORAN Department: Room: - Gender: F Laboratory Veterinarian: : 1965 Requested By: Juan Gomez Order Number: [id number] Reading MD: Jaun Gomez Measurements Intervals [place] Rate: 96 P: 43 MI: 184 QRS: 28 QRSD: 93 T: 41 QT: 339 QTc: 430 Interpretive Statements SINUS RHYTHM NONSPECIFIC ST T WAVE CHANGES CW 10/05/17 RATE INCREASED Electronically Signed On 05-26-2018 19:33:50 EDT by Juan Gomez
== END 2018-05-26 08:49 | disposition short-term general hospital (02) ==
LOC: M ED 07:23
DX: I63.9 Cerebral infarction, unspecified (principal); R56.9 Unspecified convulsions; Z72.0 Tobacco use; Z79.899 Other long term (current) drug therapy; Z88.0 Allergy status to penicillin
CPT/HCPCS: 36415; 70450; 71045; 80048; 80180; 82550; 82553; 85025; 85610; 85730; 86850; 93005; 93041; 94760; 96374; 99285; J2997

== ENCOUNTER 2018-07-04 11:10 | Day surgery (SDC) | payer OTHER ==
[~2018-07-04] VITALS: Ht 162.6 cm; Wt 86.6 kg
[2018-07-04] MEDS: NS 1,000 ML IV ONE (06:15)
[~2018-07-04 11:10] MED LIST changes: +CALC1TAB9 PO; +D 1010004 PO; +LIDOCAINE 2% INJ 100 MG/5 ML SDV (FOR ANES.) As Ordered ONE; +PANT40TA3 PO; +PLAQ200T4 PO; +PROPOFOL 200 MG/20 ML VIAL As Ordered ONE; +VITA500T17 PO
[2018-07-04] MEDS ORDERED: fentaNYL 100 MCG/2 ML INJECTION (J3010) As Ordered ONE (11:22)
[2018-07-04] MEDS ORDERED: ONDANSETRON 4MG/2ML VIAL (J2405) As Ordered ONE (12:08)
[2018-07-04 12:30] VITALS: BP 165/87
--- NOTE | 2018-07-04 12:30 | ROOR ---
Patient Name: Stacia Sarkar Procedure Date: 07/04/2018 11:17 AM Date of : 1965 Age: 53 Room: [facility] Gender: Female Note Status: Finalized Procedure: Upper GI endoscopy Indications: Follow-up of gastrojejunal ulcer Providers: Parish Vásquez MD Referring MD: Chanel Fenton MD Requesting Provider: Medicines: Monitored Anesthesia Care Complications: No immediate complications. Procedure: Pre-Anesthesia Assessment: - Prior to the procedure, a History and Physical was performed, and patient medications and allergies were reviewed. The patient is competent. The risks and benefits of the procedure and the sedation options and risks were discussed with the patient. All questions were answered and informed consent was obtained. Patient identification and proposed procedure were verified by the physician, the nurse and the anesthesiologist in the procedure room. Mental Status Examination: alert and oriented. Airway Examination: normal oropharyngeal airway and neck mobility. Respiratory Examination: clear to auscultation. CV Examination: normal. Prophylactic Antibiotics: The patient does not require prophylactic antibiotics. Prior Anticoagulants: The patient has taken no previous anticoagulant or antiplatelet agents. ASA Grade Assessment: III - A patient with severe systemic disease. After reviewing the risks and benefits, the patient was deemed in satisfactory condition to undergo the procedure. The anesthesia plan was to use monitored anesthesia care (MAC). Immediately prior to administration of medications, the patient was re-assessed for adequacy to receive sedatives. The heart rate, respiratory rate, oxygen saturations, blood pressure, adequacy of pulmonary ventilation, and response to care were monitored throughout the procedure. The physical status of the patient was re-assessed after the procedure. The Endoscope was introduced through the mouth, and advanced to the efferent jejunal loop. The upper GI endoscopy was accomplished without difficulty. The patient tolerated the procedure well. Findings: The examined esophagus was normal. Evidence of a Fausto-en-Y gastrojejunostomy was found. The gastrojejunal anastomosis was characterized by healthy appearing mucosa and the presence of no stomal ulceration. This was traversed. The jejunojejunal anastomosis was characterized by healthy appearing mucosa. The [id number]-tz-ttczzga limb was not examined as it could not be found. Two biopsies were obtained with cold forceps for histology and Helicobacter pylori testing at the anastomosis. Verification of patient identification for the specimen was done by the physician and nurse using the patient's name, date and medical record number. Estimated blood loss was minimal. Normal mucosa was found in the jejunum. Biopsies for histology were taken with a cold forceps for evaluation of celiac disease. Impression: - Normal esophagus. - Fausto-en-Y gastrojejunostomy with gastrojejunal anastomosis characterized by no stomal ulceration and healthy appearing mucosa. - Normal mucosa was found in the jejunum. Biopsied. - Biopsies performed at the anastomosis. Recommendation: - Patient has a contact number available for emergencies. The signs and symptoms of potential delayed complications were discussed with the patient. Return to normal activities tomorrow. Written discharge instructions were provided to the patient. - Resume previous diet. - Continue present medications. 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 - Await pathology results. - Based on the biopsy results you will receive a phone call from GI clinic in 2-3 weeks to review the pathology results AND/OR your results will be faxed to your Primary care physician. - Return to primary care physician. Parish Vásquez MD Parish Vásquez MD 07/04/2018 12:29:43 PM Electronically signed by Parish Vásquez MD Number of Addenda: 0 Note Initiated On: 07/04/2018 11:17 AM Estimated Blood Loss: Estimated blood loss was minimal.
== END 2018-07-04 12:44 | disposition home or self-care (01) ==
LOC: M OPP 11:10
PROVIDERS: ATTEND Internal Medicine Gastroenterology
DX: Z98.84 Bariatric surgery status (principal)
CPT/HCPCS: 43239; 88305; J2405; J3010

== ENCOUNTER → 2018-08-02 | Outpatient (CLI) | payer OTHER ==
[~2018-08-02] MED LIST changes: -LIDOCAINE 2% INJ 100 MG/5 ML SDV (FOR ANES.) As Ordered ONE; -PROPOFOL 200 MG/20 ML VIAL As Ordered ONE
--- NOTE | 2018-08-03 01:00 | REP ---
Clinical: Monoclonal gammopathy Technique: Adult bone survey including AP and lateral views of the skull, cervical, thoracic, and lumbar spine along with AP views of the pelvis and bilateral humeri and femurs. Findings: Focal moderate/early advanced degenerative disc osteophyte complex at C4-5, C5-6 and L5-S1 are appreciated. The remainder of the spine , pelvis, and bilateral shoulders, hips and knees demonstrate age-related changes. No suspicious lytic, blastic, or sclerotic lesions are identified. Impression: 1. Degenerative changes scattered along the cervical and lumbar spine. 2. Generalized age-related changes through the remainder of the examination. 3. No significant lytic, blastic, or sclerotic lesions appreciated. Electronically Signed by Darrin Collins MD 08/03/2018 12:52 A
[2018-08-04 00:08] LABS: FREE KAPPA LIGHT CHAINS SERUM 167.9 mg/L (3.3-19.4); FREE LAMBDA LIGHT CHAINS SERUM 71.3 mg/L (5.7-26.3); KAPPA/LAMBDA RATIO SERUM 2.35 (0.26-1.65)
== END ==
LOC: M LAB 08:03
PROVIDERS: ATTEND Internal Medicine Hematology & Oncology
DX: D47.2 Monoclonal gammopathy (principal); M25.78 Osteophyte, vertebrae; M50.321 Other cervical disc degeneration at C4-C5 level; M50.322 Other cervical disc degeneration at C5-C6 level; M51.37 Other intervertebral disc degeneration, lumbosacral region

== ENCOUNTER → 2018-08-23 | Outpatient (REF) | payer OTHER ==
[2018-08-23 12:45] LABS: ALBUMIN 3.1 GM/DL (3.2-5.2); ALT/SGPT 23 U/L (12-78); BILIRUBIN,TOTAL 0.2 MG/DL (0.2-1.0); BLOOD UREA NITROGEN 15 MG/DL (7-18); CALCIUM LEVEL 8.8 MG/DL (8.5-10.1); CARBON DIOXIDE LEVEL 28 MEQ/L (21-32); CHLORIDE LEVEL 106 MEQ/L (98-107); CHOLESTEROL LEVEL 149 MG/DL (<200); CHOLESTEROL RISK RATIO 2.128 (<5); GLOMERULAR FILTRATION RATE > 60.0 (>51); GLUCOSE, FASTING 76 MG/DL (70-100); HDL CHOLESTEROL 70 MG/DL (>40); LDL CHOLESTEROL 49 MG/DL (<100); NON-HDL-C 79 MG/DL; POTASSIUM SERUM 4.1 MEQ/L (3.5-5.1); SODIUM LEVEL 139 MEQ/L (136-145); TOTAL PROTEIN 8.6 GM/DL (6.4-8.2); TRIGLYCERIDES LEVEL 151 MG/DL (<150)
[2018-08-23 12:47] LABS: HEMOGLOBIN A1c 6.3 %
== END ==
LOC: M SFHCPLAZ 10:05
PROVIDERS: ATTEND Family Medicine
DX: I10 Essential (primary) hypertension (principal); E11.9 Type 2 diabetes mellitus without complications; E78.2 Mixed hyperlipidemia

== ENCOUNTER → 2018-10-03 | Outpatient (REF) | payer OTHER ==
[2018-10-03 18:03] LABS: CREATININE, URINE 56.1 MG/DL; MAU/CREAT RATIO 12.4 MCG/MG (0.0-30.0)
== END ==
LOC: M SFHCPLAZ 15:47
PROVIDERS: ATTEND Family Medicine
DX: E11.9 Type 2 diabetes mellitus without complications (principal)

== ENCOUNTER → 2018-10-03 | Outpatient (REF) | payer OTHER | LOC: M LAB REF 12:55 | PROVIDERS: ATTEND Physician Assistant | DX: Z47.89 Encounter for other orthopedic aftercare (principal); Z98.1 Arthrodesis status ==

== ENCOUNTER → 2018-11-14 | Outpatient (REF) | payer OTHER ==
[~2018-11-14] MED LIST changes: +INDO-16 PO; -INDO25CA PO
[2018-11-14 17:20] LABS: BLOOD UREA NITROGEN 16 MG/DL (7-18); CALCIUM LEVEL 8.7 MG/DL (8.5-10.1); CARBON DIOXIDE LEVEL 26 MEQ/L (21-32); CHLORIDE LEVEL 108 MEQ/L (98-107); CREATININE FOR GFR 0.84 MG/DL (0.55-1.30); GLOMERULAR FILTRATION RATE > 60.0 (>51); GLUCOSE, FASTING 81 MG/DL (70-100); PHOSPHORUS LEVEL 3.3 MG/DL (2.5-4.9); POTASSIUM SERUM 3.9 MEQ/L (3.5-5.1); SODIUM LEVEL 141 MEQ/L (136-145)
[2018-11-14 17:23] LABS: TOTAL 25(OH) VITAMIN D 26.2 NG/ML (30.0-100.0); VITAMIN B12 LEVEL 465 PG/ML (247-911)
[2018-11-14 17:25] LABS: HEMATOCRIT 41.7 % (36.0-47.0); HEMOGLOBIN 13.6 g/dl (12.0-15.5); MEAN CORPUSCULAR HEMOGLOBIN 30.8 pg (27.0-33.0); MEAN CORPUSCULAR HGB CONC 32.6 g/dl (32.0-36.5); MEAN CORPUSCULAR VOLUME 94.6 fl (80.0-96.0); PLATELET COUNT, AUTOMATED 148 10^3/uL (150-450); RED BLOOD COUNT 4.41 10^6/uL (4.00-5.40); WHITE BLOOD COUNT 4.4 10^3/uL (4.0-10.0)
[2018-11-19 00:10] LABS: VITAMIN A, RETINOL LEVEL 54.9 ug/dL (20.1-62.0); VITAMIN B1 LEVEL WHOLE BLOOD 99.6 nmol/L (66.5-200.0)
== END ==
LOC: M SFHCPLAZ 13:51
PROVIDERS: ATTEND Family Medicine
DX: Z01.818 Encounter for other preprocedural examination (principal); D64.9 Anemia, unspecified; K91.2 Postsurgical malabsorption, not elsewhere classified; E55.9 Vitamin D deficiency, unspecified; E53.8 Deficiency of other specified B group vitamins

== ENCOUNTER 2018-11-16 09:32 | Emergency (ER) | payer OTHER ==
[~2018-11-16] VITALS: Ht 162.6 cm; Wt 82.3 kg
[2018-11-16 09:44] VITALS: BP 176/88
[2018-11-16] MEDS ORDERED: ACETAMINOPHEN 500 MG TAB PO ONE (10:00)
[2018-11-16] MEDS ORDERED: CYCLOBENZAPRINE 5MG TABLET PO ONE (10:30)
--- NOTE | 2018-11-16 10:52 | REP ---
LUMBOSACRAL SPINE: Five views of the lumbosacral spine are performed. There is no compression fracture of malalignment with normal lumbar lordosis and no evidence of spondylolysis or spondylolisthesis. There is mild diffuse spurring. There is moderate disc space narrowing and subchondral sclerosis with vacuum at L5-S1. There is diffuse sclerosis and spurring at the posterior facet joints. The posterior elements are intact. IMPRESSION: Degenerative changes without fracture or dislocation. Electronically Signed by Zachery Wong MD 11/16/2018 05:35 P
--- NOTE | 2018-11-16 10:53 | REP ---
RIGHT KNEE, FIVE VIEWS: Five views of the right knee are performed. There is no acute fracture or dislocation. There is mild medial joint space narrowing. There is mild spurring of the tibial spines as well as the superior pole of the patella. I do not see a significant joint effusion. IMPRESSION: Mild degenerative changes. No fracture or dislocation. Electronically Signed by Zachery Wong MD 11/16/2018 05:36 P
--- NOTE | 2018-11-16 10:54 | REP ---
PELVIS AND RIGHT HIP: AP view of the pelvis and AP and frog leg views of the right hip are performed and demonstrates no evidence of acute fracture or dislocation. Mild degenerative changes are seen at each hip joint. IMPRESSION: No acute fracture or dislocation. Electronically Signed by Zachery Wong MD 11/16/2018 05:36 P
== END 2018-11-16 11:06 | disposition home or self-care (01) ==
LOC: EDBD 09:32 → M ED 09:32
DX: S30.0XXA Contusion of lower back and pelvis, initial encounter (principal); W01.0XXA Fall on same level from slipping, tripping and stumbling without subsequent striking against object, initial encounter; Y92.512 Supermarket, store or market as the place of occurrence of the external cause; R56.9 Unspecified convulsions; Z79.899 Other long term (current) drug therapy

== ENCOUNTER 2018-11-29 07:01 | Day surgery (SDC) | payer OTHER ==
[~2018-11-29] VITALS: Ht 162.6 cm; Wt 82.1 kg
[~2018-11-29 07:01] MED LIST changes: +CLINDAMYCIN 600 MG in IV 1 EA IV ONE; +LIDOCAINE 1% MDV 20ML VIAL SQ PRN; +LR 1,000 ML IV ONE; -OMEP40CA2 PO; +OMEP40CA97 PO
[2018-11-29] MEDS ORDERED: LIDOCAINE 2% INJ 100 MG/5 ML SDV (FOR ANES.) As Ordered ONE (07:53)
[2018-11-29] MEDS ORDERED: ONDANSETRON 4MG/2ML VIAL (J2405) As Ordered ONE (07:53)
[2018-11-29] MEDS ORDERED: dexameTHASONE 4 MG/ML 1ML VIAL (J1100) As Ordered ONE ×2 (07:53→08:26)
[2018-11-29] MEDS ORDERED: propofoL 200 MG/20 ML VIAL As Ordered ONE ×2 (07:53→09:04)
[2018-11-29] MEDS ORDERED: fentaNYL 100 MCG/2 ML INJECTION (J3010) As Ordered ONE (07:54)
[2018-11-29] MEDS ORDERED: MIDAZOLAM INJ 2 MG/2 ML VIAL (J2250) As Ordered ONE (07:54)
[2018-11-29] MEDS ORDERED: KETOROLAC 60 MG/2 ML VIAL (J1885) As Ordered ONE (07:54)
[2018-11-29] MEDS ORDERED: LIDOCAINE 1% MDV 20ML VIAL As Ordered ONE (09:11)
[2018-11-29] MEDS ORDERED: BUPIVACAINE HCL 0.5% 30 ML VIAL As Ordered ONE (09:11)
[2018-11-29] MEDS ORDERED: OXYC1TAB23 PO (09:37)
[2018-11-29 10:10] VITALS: BP 136/63
[2018-11-29] MEDS ORDERED: fentaNYL 100 MCG/2 ML INJECTION (J3010) IV PRN (10:15)
[2018-11-29] MEDS ORDERED: ONDANSETRON 4MG/2ML VIAL (J2405) IV PRN (10:15)
[2018-11-29] MEDS ORDERED: oxyCODONE 5MG TAB PO PRN (10:15)
[2018-11-29] MEDS ORDERED: METOCLOPRAMIDE INJ 10MG/2ML VIAL (J2765) IV PRN (10:15)
[2018-11-29] MEDS ORDERED: LR 1,000 ML IV SCH (10:15)
--- NOTE | 2018-11-29 10:31 | RO ---
DATE OF PROCEDURE: 11/29/2018 PREPROCEDURE DIAGNOSIS: Painful hardware left foot. POSTPROCEDURE DIAGNOSIS: Painful hardware left foot. PROCEDURE: Left foot hardware removal. SURGEON: Lev Whitten DPM CLAY PUDDLER: None. ANESTHESIA: Monitored anesthesia care. Preoperative injection of 10 mL of 1:1 mixture of 1% lidocaine plain and 0.50% Marcaine plain. ESTIMATED BLOOD LOSS: Minimal. MATERIALS: #4-0 nylon. INJECTABLES: None. COMPLICATIONS: None. CONDITION: Stable. Stacia Sarkar is a 53-year-old female who had a left first metatarsophalangeal joint fusion. She has plate and screws, which are causing discomfort and pain to her foot. She presents today for removal of the hardware. Patient site and side were identified and marked in preoperative holding area. Consent was reviewed and obtained. All risks, complications, and alternatives to the procedure were explained to the patient in detail and all questions were answered. DESCRIPTION OF PROCEDURE: The patient was brought to the operating room and placed on the operating room in supine position. Monitored anesthesia care was delivered by the anesthesia team. Preoperative injection of 10 mL of 1:1 mixture of 1% lidocaine plain and 0.50% Marcaine plain were injected to the left foot. The left foot was prepped and draped in normal sterile fashion. A tourniquet was applied at the left ankle inflated at 250 mmHg. A dorsal incision was done and carried through with #15 blade through the previous scar. The dorsal plate and screws were immediately identified and these were removed using the Heckyl screwdriver. Following this a medial incision was made to find the partially threaded screw. This had overlying bone, which was removed using osteotomes, and the screwdriver was removed. The site was irrigated with normal saline. Incisions were repaired with #4-0 nylon. Tourniquet was deflated. Sterile dressings were applied. The patient was brought to postanesthesia care unit (PACU) with vital signs stable and neurovascular status intact. She will be weightbearing as tolerated and followup in 2 days.
== END 2018-11-29 10:25 | disposition home or self-care (01) ==
LOC: M SDC 07:01
PROVIDERS: ATTEND Podiatrist Foot & Ankle Surgery
DX: T84.84XA Pain due to internal orthopedic prosthetic devices, implants and grafts, initial encounter (principal); I10 Essential (primary) hypertension; E11.9 Type 2 diabetes mellitus without complications; E78.2 Mixed hyperlipidemia; F31.9 Bipolar disorder, unspecified; J45.909 Unspecified asthma, uncomplicated; K21.9 Gastro-esophageal reflux disease without esophagitis; G40.909 Epilepsy, unspecified, not intractable, without status epilepticus; D47.2 Monoclonal gammopathy; F41.1 Generalized anxiety disorder; F43.10 Post-traumatic stress disorder, unspecified; E55.9 Vitamin D deficiency, unspecified; L93.0 Discoid lupus erythematosus; M35.01 Sjogren syndrome with keratoconjunctivitis; F17.211 Nicotine dependence, cigarettes, in remission; K91.2 Postsurgical malabsorption, not elsewhere classified; E53.8 Deficiency of other specified B group vitamins; D64.9 Anemia, unspecified; J30.89 Other allergic rhinitis; Z88.0 Allergy status to penicillin; Z79.899 Other long term (current) drug therapy; Z79.84 Long term (current) use of oral hypoglycemic drugs; Z90.710 Acquired absence of both cervix and uterus; Z98.84 Bariatric surgery status; X58.XXXA Exposure to other specified factors, initial encounter; Y93.9 Activity, unspecified; Y92.9 Unspecified place or not applicable; Y99.9 Unspecified external cause status
CPT/HCPCS: 20680; J1100; J1885; J2250; J2405; J3010

== ENCOUNTER → 2018-12-13 | Outpatient (CLI) | payer OTHER ==
[~2018-12-13] MED LIST changes: -CLINDAMYCIN 600 MG in IV 1 EA IV ONE; +CYCL5TAB PO; -LIDOCAINE 1% MDV 20ML VIAL SQ PRN; -LR 1,000 ML IV ONE; +OXYC1TAB23 PO; +PRED5TA
--- NOTE | 2018-12-13 11:49 | REP ---
Five views right ribs: 12/13/2018. Indication: Rib pain following trauma. Comparison: Chest x-ray dated 03/07/2018. Findings: No rib fracture is detected. No destructive lesions of the visualized osseous structures is present. The underlying lungs are clear. There is no pleural effusion or pneumothorax. Impression: No rib fracture detected. Electronically Signed by Magnus Mccurdy DO 12/13/2018 11:40 A
== END ==
LOC: M RAD 09:28
PROVIDERS: ATTEND Family Medicine
DX: R07.81 Pleurodynia (principal)

== ENCOUNTER 2018-12-19 14:11 | Emergency (ER) | payer OTHER ==
[~2018-12-19] VITALS: Ht 162.6 cm; Wt 81.7 kg
[~2018-12-19 14:11] MED LIST changes: -CYCL5TAB PO; -PRED5TA
[2018-12-19] MEDS ORDERED: PRED5TA (14:19)
[2018-12-19] MEDS ORDERED: NORCO, ANEXSIA 5/325MG TABLET (HYDROcodone/ACETAMINOPHEN) PO ONE (16:15)
[2018-12-19] MEDS ORDERED: CYCLOBENZAPRINE 10 MG TAB PO ONE (16:15)
--- NOTE | 2018-12-19 16:32 | REP ---
CT lumbar spine: 12/19/2018. Indication: Lumbar spine trauma. Comparison: None. Technique: Unenhanced axial images of the lumbar spine were obtained with sagittal and coronal reconstructions provided. Findings: There is no acute fracture, subluxation or dislocation. Disc space narrowing and vacuum disc phenomenon are present at L5/S1. Marginal spurring is present at L5/S1 as well with at least moderate narrowing of the neural foramen. The spinal canal appears patent. No acute post traumatic. Soft tissue abnormalities are detected within the paraspinal soft tissues. Impression: No acute osseous injury of the lumbar spine. Electronically Signed by Magnus Mccurdy DO 12/19/2018 04:22 P
[2018-12-19] MEDS ORDERED: CYCL5TAB PO (17:12)
[2018-12-19 17:21] VITALS: BP 164/88
== END 2018-12-19 17:28 | disposition home or self-care (01) ==
LOC: M ED 14:11
DX: M54.31 Sciatica, right side (principal); E11.9 Type 2 diabetes mellitus without complications; I10 Essential (primary) hypertension; K21.9 Gastro-esophageal reflux disease without esophagitis; Z98.84 Bariatric surgery status; Z79.899 Other long term (current) drug therapy; Z88.0 Allergy status to penicillin

== ENCOUNTER 2018-12-30 08:18 | Emergency (ER) | payer OTHER ==
[~2018-12-30] VITALS: Ht 162.6 cm; Wt 82.0 kg
[~2018-12-30 08:18] MED LIST changes: +CYCL5TAB PO; +PRED5TA
[2018-12-30] MEDS ORDERED: DULO1CAP4 (08:25)
[2018-12-30] MEDS ORDERED: METF-791 (08:25)
[2018-12-30] MEDS ORDERED: ARNU1INH (08:25)
[2018-12-30] MEDS ORDERED: PRED10TA2 (08:25)
[2018-12-30] MEDS ORDERED: METH2.5T48 (08:25)
[2018-12-30] MEDS ORDERED: CYCLOBENZAPRINE 10 MG TAB PO ONE (09:30)
[2018-12-30] MEDS ORDERED: ACETAMINOPHEN 650MG ER TAB (TYLENOL ARTHRITIS) PO PRN (09:30)
--- NOTE | 2018-12-30 09:40 | REP ---
Clinical: Constipation. Technique: Single supine view of the abdomen and pelvis. Findings: Moderate fecal stasis and presumed constipation. No obvious obstruction or perforation. Skeletal structures demonstrate age-related degenerative changes. Impression: Fecal stasis and constipation. Electronically Signed by Darrin Collins MD 12/30/2018 09:31 A
[2018-12-30 10:23] VITALS: BP 146/87
== END 2018-12-30 10:27 | disposition home or self-care (01) ==
LOC: M ED 08:18
DX: M54.41 Lumbago with sciatica, right side (principal); K59.03 Drug induced constipation; Z79.891 Long term (current) use of opiate analgesic; Z88.0 Allergy status to penicillin; Z79.899 Other long term (current) drug therapy

== ENCOUNTER → 2019-01-04 | Outpatient (REF) | payer OTHER ==
[~2019-01-04] MED LIST changes: +DULO1CAP4; +METF-791; +METH2.5T48; +PRED10TA2
== END ==
LOC: M SFHCPLAZ 15:51
PROVIDERS: ATTEND Family Medicine
DX: Z51.81 Encounter for therapeutic drug level monitoring (principal)

== ENCOUNTER 2019-01-05 11:47 | Emergency (ER) | payer OTHER ==
[~2019-01-05] VITALS: Ht 162.6 cm; Wt 80.0 kg
[2019-01-05 12:52] LABS: BASO % 0.3 % (0.0-1.0); HEMATOCRIT 38.2 % (36.0-47.0); HEMOGLOBIN 12.5 g/dl (12.0-15.5); LYMPH # 1.7 10^3/uL (1.5-5.0); LYMPH % 21.7 % (24.0-44.0); MEAN CORPUSCULAR HEMOGLOBIN 30.6 pg (27.0-33.0); MEAN CORPUSCULAR HGB CONC 32.7 g/dl (32.0-36.5); MEAN CORPUSCULAR VOLUME 93.6 fl (80.0-96.0); MONO # 0.6 10^3/uL (0.0-0.8); MONO % 7.4 % (0.0-5.0); NEUTROPHILS # 5.4 10^3/uL (1.5-8.5); NEUTROPHILS % 70.2 % (36.0-66.0); PLATELET COUNT, AUTOMATED 143 10^3/uL (150-450); RED BLOOD COUNT 4.08 10^6/uL (4.00-5.40); WHITE BLOOD COUNT 7.7 10^3/uL (4.0-10.0)
[2019-01-05 13:11] LABS: ALT/SGPT 62 U/L (12-78); BILIRUBIN,TOTAL 0.4 MG/DL (0.2-1.0); BLOOD UREA NITROGEN 13 MG/DL (7-18); C REACTIVE PROTEIN QUANTITATIV 1.92 MG/DL (0.00-0.30); CALCIUM LEVEL 8.5 MG/DL (8.5-10.1); CARBON DIOXIDE LEVEL 29 MEQ/L (21-32); CHLORIDE LEVEL 104 MEQ/L (98-107); CREATININE FOR GFR 0.86 MG/DL (0.55-1.30); GLOMERULAR FILTRATION RATE > 60.0 (>51); GLUCOSE, FASTING 92 MG/DL (70-100); POTASSIUM SERUM 4.1 MEQ/L (3.5-5.1); SODIUM LEVEL 136 MEQ/L (136-145)
[2019-01-05 13:15] LABS: INFLUENZA A AMPLIFICATION NEGATIVE (NEGATIVE); INFLUENZA B AMPLIFICATION NEGATIVE (NEGATIVE)
[2019-01-05] MEDS ORDERED: NS 1,000 ML IV ONE (13:30)
[2019-01-05] MEDS ORDERED: KETOROLAC 30 MG/ML VIAL (J1885) IV ONE (13:30)
[2019-01-05 13:39] LABS: ERYTHROCYTE SEDIMENTATION RATE 47 mm/hr (0-30)
--- NOTE | 2019-01-05 13:56 | REP ---
PA and lateral chest: Comparison is 03/07/2018. The lung eric are clear. The cardiac size is normal. The surendra, mediastinum, and skeletal structures are unremarkable. Impression: Negative PA and lateral chest. There is no interval change. Electronically Signed by Zachery Burris MD 01/05/2019 01:47 P
[2019-01-05 14:50] VITALS: BP 129/77
== END 2019-01-05 15:00 | disposition home or self-care (01) ==
LOC: M ED 11:47
DX: R50.9 Fever, unspecified (principal); M54.9 Dorsalgia, unspecified; G89.29 Other chronic pain; Z88.0 Allergy status to penicillin; Z98.84 Bariatric surgery status; Z79.899 Other long term (current) drug therapy; Z79.84 Long term (current) use of oral hypoglycemic drugs; Z79.51 Long term (current) use of inhaled steroids
CPT/HCPCS: 71046; 80053; 81001; 83605; 85025; 85652; 86140; 87040; 87502; 87880; 96374; 99284; J1885

== ENCOUNTER → 2019-01-18 | Outpatient (REF) | payer OTHER ==
[2019-01-18 11:45] LABS: PLATELET COUNT, AUTOMATED 194 10^3/uL (150-450)
[2019-01-18 11:55] LABS: INR 0.96; PROTHROMBIN TIME 12.4 SECONDS (11.8-14.0)
[2019-01-18 11:56] LABS: PARTIAL THROMBOPLASTIN TIME 29.3 SECONDS (25.0-38.4)
== END ==
LOC: M LABDRAWP 10:23
PROVIDERS: ATTEND Physician Assistant
DX: Z01.812 Encounter for preprocedural laboratory examination (principal); M47.817 Spondylosis without myelopathy or radiculopathy, lumbosacral region; D69.1 Qualitative platelet defects

== ENCOUNTER → 2019-01-18 | Outpatient (REF) | payer OTHER ==
[2019-01-18 11:45] LABS: HEMATOCRIT 37.8 % (36.0-47.0); HEMOGLOBIN 12.4 g/dl (12.0-15.5); MEAN CORPUSCULAR HEMOGLOBIN 30.5 pg (27.0-33.0); MEAN CORPUSCULAR HGB CONC 32.8 g/dl (32.0-36.5); MEAN CORPUSCULAR VOLUME 93.1 fl (80.0-96.0); PLATELET COUNT, AUTOMATED 192 10^3/uL (150-450); RED BLOOD COUNT 4.06 10^6/uL (4.00-5.40); WHITE BLOOD COUNT 5.3 10^3/uL (4.0-10.0)
[2019-01-18 12:41] LABS: ALT/SGPT 25 U/L (12-78); BILIRUBIN,TOTAL 0.3 MG/DL (0.2-1.0); BLOOD UREA NITROGEN 15 MG/DL (7-18); CALCIUM LEVEL 8.6 MG/DL (8.5-10.1); CARBON DIOXIDE LEVEL 26 MEQ/L (21-32); CHLORIDE LEVEL 108 MEQ/L (98-107); CREATININE FOR GFR 1.05 MG/DL (0.55-1.30); GLOMERULAR FILTRATION RATE > 60.0 (>51); GLUCOSE, FASTING 76 MG/DL (70-100); POTASSIUM SERUM 3.8 MEQ/L (3.5-5.1); SODIUM LEVEL 140 MEQ/L (136-145); TOTAL PROTEIN 7.9 GM/DL (6.4-8.2)
== END ==
LOC: M SFHCDERM 10:10
PROVIDERS: ATTEND Dermatology
DX: Z79.899 Other long term (current) drug therapy (principal)

== ENCOUNTER → 2019-02-01 | Outpatient (CLI) | payer OTHER ==
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
== END ==
LOC: M PAIN 13:30
PROVIDERS: ATTEND Nurse Practitioner Family
DX: M46.1 Sacroiliitis, not elsewhere classified (principal); I10 Essential (primary) hypertension; E11.9 Type 2 diabetes mellitus without complications; E78.5 Hyperlipidemia, unspecified; Z86.59 Personal history of other mental and behavioral disorders; G40.909 Epilepsy, unspecified, not intractable, without status epilepticus; J45.30 Mild persistent asthma, uncomplicated; Z98.84 Bariatric surgery status; Z87.891 Personal history of nicotine dependence; Z88.0 Allergy status to penicillin; Z79.51 Long term (current) use of inhaled steroids; Z79.84 Long term (current) use of oral hypoglycemic drugs; Z79.899 Other long term (current) drug therapy

== ENCOUNTER → 2019-04-04 | Outpatient (CLI) | payer OTHER ==
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
== END ==
LOC: M PAIN 10:30
PROVIDERS: ATTEND Nurse Practitioner Family
DX: M46.1 Sacroiliitis, not elsewhere classified (principal); I10 Essential (primary) hypertension; E78.5 Hyperlipidemia, unspecified; Z86.59 Personal history of other mental and behavioral disorders; G40.909 Epilepsy, unspecified, not intractable, without status epilepticus; J45.30 Mild persistent asthma, uncomplicated; Z98.84 Bariatric surgery status; Z87.891 Personal history of nicotine dependence; Z88.0 Allergy status to penicillin; Z79.51 Long term (current) use of inhaled steroids; Z79.84 Long term (current) use of oral hypoglycemic drugs; Z79.899 Other long term (current) drug therapy

== ENCOUNTER → 2019-04-10 | Outpatient (REF) | payer OTHER ==
[2019-04-10 13:15] LABS: ALBUMIN 3.7 GM/DL (3.2-5.2); ALT/SGPT 36 U/L (12-78); BILIRUBIN,TOTAL 0.3 MG/DL (0.2-1.0); BLOOD UREA NITROGEN 12 MG/DL (7-18); CALCIUM LEVEL 9.3 MG/DL (8.5-10.1); CARBON DIOXIDE LEVEL 29 MEQ/L (21-32); CHLORIDE LEVEL 107 MEQ/L (98-107); CREATININE FOR GFR 0.78 MG/DL (0.55-1.30); GLOMERULAR FILTRATION RATE > 60.0 (>51); GLUCOSE, FASTING 81 MG/DL (70-100); POTASSIUM SERUM 4.1 MEQ/L (3.5-5.1); SODIUM LEVEL 140 MEQ/L (136-145); TOTAL PROTEIN 8.5 GM/DL (6.4-8.2)
[2019-04-10 14:30] LABS: HEMOGLOBIN A1c 5.2 %
== END ==
LOC: M SFHCPLAZ 11:23
PROVIDERS: ATTEND Family Medicine
DX: E11.40 Type 2 diabetes mellitus with diabetic neuropathy, unspecified (principal); I10 Essential (primary) hypertension

== ENCOUNTER → 2019-05-07 | Outpatient (CLI) | payer OTHER ==
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
== END ==
LOC: M PAIN 13:15
PROVIDERS: ATTEND Nurse Practitioner Family
DX: M46.1 Sacroiliitis, not elsewhere classified (principal)

== ENCOUNTER → 2019-06-07 | Outpatient (CLI) | payer OTHER ==
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
== END ==
LOC: M PAIN 11:30 → M TMPAIN 11:30
PROVIDERS: ATTEND Anesthesiology
DX: M47.817 Spondylosis without myelopathy or radiculopathy, lumbosacral region (principal); G89.29 Other chronic pain; I10 Essential (primary) hypertension; E78.5 Hyperlipidemia, unspecified; Z86.59 Personal history of other mental and behavioral disorders; G40.909 Epilepsy, unspecified, not intractable, without status epilepticus; J45.30 Mild persistent asthma, uncomplicated; Z98.84 Bariatric surgery status; Z87.891 Personal history of nicotine dependence; Z88.0 Allergy status to penicillin; Z79.51 Long term (current) use of inhaled steroids; Z79.891 Long term (current) use of opiate analgesic; Z79.899 Other long term (current) drug therapy

== ENCOUNTER → 2019-06-28 | Outpatient (CLI) | payer OTHER ==
[~2019-06-28] MED LIST changes: +BUPIVACAINE HCL 0.25% 10ML VIAL As Ordered ONE; +BUPIVACAINE HCL 0.25% 30ML VIAL As Ordered ONE; +diazePAM 5 MG TAB As Ordered ONE; +oxyCODONE 5MG TAB As Ordered ONE
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
== END ==
LOC: M PAIN 12:15
PROVIDERS: ATTEND Anesthesiology
DX: M79.18 Myalgia, other site (principal); M54.5 Low back pain; G89.29 Other chronic pain; I10 Essential (primary) hypertension; Z86.59 Personal history of other mental and behavioral disorders; G40.909 Epilepsy, unspecified, not intractable, without status epilepticus; J45.30 Mild persistent asthma, uncomplicated; Z98.84 Bariatric surgery status; Z87.891 Personal history of nicotine dependence; Z88.0 Allergy status to penicillin; Z79.51 Long term (current) use of inhaled steroids; Z79.84 Long term (current) use of oral hypoglycemic drugs; Z79.891 Long term (current) use of opiate analgesic; Z79.899 Other long term (current) drug therapy

== ENCOUNTER → 2019-07-03 | Outpatient (CLI) | payer OTHER ==
[~2019-07-03] MED LIST changes: -AMLO10TA5 PO; +AMLO1TAB25 PO; -BUPIVACAINE HCL 0.25% 10ML VIAL As Ordered ONE; -BUPIVACAINE HCL 0.25% 30ML VIAL As Ordered ONE; +D31000TA2 PO; -DULO1CAP4; +DULO1CAP4 PO; +GABA800T4 PO; +HYDR-4514 PO; +LISI10TA22 PO; -LISI10TA4 PO; -METF-791; +METF-838 PO; -METH2.5T48; +METH2.5T48 PO; +OXYC10TA12 PO; +PANT40TA29 PO; -PANT40TA3 PO; -diazePAM 5 MG TAB As Ordered ONE; -oxyCODONE 5MG TAB As Ordered ONE
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
== END ==
LOC: M TMPAIN 11:00 → M PAIN 11:00
PROVIDERS: ATTEND Nurse Practitioner Family
DX: M79.18 Myalgia, other site (principal); M46.1 Sacroiliitis, not elsewhere classified; M19.90 Unspecified osteoarthritis, unspecified site; E11.9 Type 2 diabetes mellitus without complications; I10 Essential (primary) hypertension; Z79.891 Long term (current) use of opiate analgesic; Z79.84 Long term (current) use of oral hypoglycemic drugs; Z79.899 Other long term (current) drug therapy; Z88.0 Allergy status to penicillin; Z87.891 Personal history of nicotine dependence

== ENCOUNTER → 2019-08-07 | Outpatient (CLI) | payer OTHER ==
[~2019-08-07] MED LIST changes: +AMLO10TA5 PO; -AMLO1TAB25 PO; -D31000TA2 PO; +DULO1CAP4; -DULO1CAP4 PO; -GABA800T4 PO; -HYDR-4514 PO; -LISI10TA22 PO; +LISI10TA4 PO; +METF-838; -METF-838 PO; +METH2.5T48; -METH2.5T48 PO; -OXYC10TA12 PO; -PANT40TA29 PO; +PANT40TA3 PO
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
== END ==
LOC: M PAIN 13:30
PROVIDERS: ATTEND Nurse Practitioner Family
DX: M51.26 Other intervertebral disc displacement, lumbar region (principal); M54.17 Radiculopathy, lumbosacral region

== ENCOUNTER → 2019-09-26 | Outpatient (CLI) | payer OTHER ==
[~2019-09-26] MED LIST changes: -AMLO10TA5 PO; +AMLO1TAB25 PO; +D31000TA2 PO; -DULO1CAP4; +DULO1CAP4 PO; +GABA800T4 PO; +HYDR-4514 PO; -METF-838; +METF-838 PO; -METH2.5T48; +METH2.5T48 PO; +OXYC10TA12 PO; +PANT40TA29 PO; -PANT40TA3 PO
[2019-11-04 12:24] LABS: ALBUMIN 3.5 GM/DL (3.2-5.2); ALT/SGPT 23 U/L (12-78); BILIRUBIN,TOTAL 0.4 MG/DL (0.2-1.0); BLOOD UREA NITROGEN 10 MG/DL (7-18); CARBON DIOXIDE LEVEL 28 MEQ/L (21-32); CHLORIDE LEVEL 108 MEQ/L (98-107); CREATININE FOR GFR 0.76 MG/DL (0.55-1.30); GLOMERULAR FILTRATION RATE > 60.0 (>51); GLUCOSE, FASTING 75 MG/DL (70-100); POTASSIUM SERUM 3.8 MEQ/L (3.5-5.1); SODIUM LEVEL 141 MEQ/L (136-145); TOTAL PROTEIN 8.2 GM/DL (6.4-8.2)
[2019-11-15 11:22] LABS: BASO % 0.2 % (0.0-1.0); EOS % 0.5 % (0.0-3.0); HEMATOCRIT 39.5 % (36.0-47.0); HEMOGLOBIN 12.9 g/dl (12.0-15.5); LYMPH # 1.7 10^3/uL (1.5-5.0); LYMPH % 39.4 % (24.0-44.0); MEAN CORPUSCULAR HEMOGLOBIN 31.7 pg (27.0-33.0); MEAN CORPUSCULAR HGB CONC 32.7 g/dl (32.0-36.5); MEAN CORPUSCULAR VOLUME 97.1 fl (80.0-96.0); MONO # 0.5 10^3/uL (0.0-0.8); NEUTROPHILS % 47.7 % (36.0-66.0); PLATELET COUNT, AUTOMATED 163 10^3/uL (150-450); RED BLOOD COUNT 4.07 10^6/uL (4.00-5.40); WHITE BLOOD COUNT 4.3 10^3/uL (4.0-10.0)
== END ==
LOC: M LAB 08:07
PROVIDERS: ATTEND Dermatology
DX: L93.0 Discoid lupus erythematosus (principal)

== ENCOUNTER → 2019-11-15 | Outpatient (CLI) | payer OTHER | LOC: M PAIN 13:22 | PROVIDERS: ATTEND Nurse Practitioner Family | DX: M79.18 Myalgia, other site (principal); Z79.891 Long term (current) use of opiate analgesic ==

== ENCOUNTER → 2019-11-24 | Outpatient (CLI) | payer OTHER | LOC: M LABSMTC 11:41 | PROVIDERS: ATTEND Anesthesiology | DX: Z20.828 Contact with and (suspected) exposure to other viral communicable diseases (principal) | CPT/HCPCS: C9803; U0003 ==

== ENCOUNTER → 2019-11-29 | Outpatient (CLI) | payer OTHER ==
[~2019-11-29] MED LIST changes: +BUPIVACAINE HCL 0.25% 10ML VIAL As Ordered ONE; +BUPIVACAINE HCL 0.25% 30ML VIAL As Ordered ONE; +TRIAMCINOLONE ACETONIDE SUSP 40 MG/ML VIAL (J3301) As Ordered ONE; +diazePAM 5 MG TAB As Ordered ONE; +oxyCODONE 5MG TAB As Ordered ONE
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
== END ==
LOC: M PAIN 08:30
PROVIDERS: ATTEND Anesthesiology
DX: M79.18 Myalgia, other site (principal); I10 Essential (primary) hypertension; E78.5 Hyperlipidemia, unspecified; G40.909 Epilepsy, unspecified, not intractable, without status epilepticus; J45.30 Mild persistent asthma, uncomplicated; Z86.59 Personal history of other mental and behavioral disorders; Z98.84 Bariatric surgery status; Z87.891 Personal history of nicotine dependence; Z88.0 Allergy status to penicillin; Z79.51 Long term (current) use of inhaled steroids; Z79.84 Long term (current) use of oral hypoglycemic drugs; Z79.891 Long term (current) use of opiate analgesic; Z79.899 Other long term (current) drug therapy
CPT/HCPCS: 20552; J3301

== ENCOUNTER → 2019-12-03 | Outpatient (REF) | payer OTHER ==
[~2019-12-03] MED LIST changes: -BUPIVACAINE HCL 0.25% 10ML VIAL As Ordered ONE; -BUPIVACAINE HCL 0.25% 30ML VIAL As Ordered ONE; -GABA800T4 PO; -OXYC10TA12 PO; -TRIAMCINOLONE ACETONIDE SUSP 40 MG/ML VIAL (J3301) As Ordered ONE; -diazePAM 5 MG TAB As Ordered ONE; -oxyCODONE 5MG TAB As Ordered ONE
[2019-12-03 14:04] LABS: HEMATOCRIT 36.3 % (36.0-47.0); HEMOGLOBIN 11.7 g/dl (12.0-15.5); MEAN CORPUSCULAR HEMOGLOBIN 30.7 pg (27.0-33.0); MEAN CORPUSCULAR HGB CONC 32.2 g/dl (32.0-36.5); MEAN CORPUSCULAR VOLUME 95.3 fl (80.0-96.0); PLATELET COUNT, AUTOMATED 193 10^3/uL (150-450); RED BLOOD COUNT 3.81 10^6/uL (4.00-5.40); WHITE BLOOD COUNT 4.4 10^3/uL (4.0-10.0)
[2019-12-03 14:10] LABS: BLOOD UREA NITROGEN 16 MG/DL (7-18); CALCIUM LEVEL 9.1 MG/DL (8.5-10.1); CARBON DIOXIDE LEVEL 28 MEQ/L (21-32); CHLORIDE LEVEL 106 MEQ/L (98-107); CHOLESTEROL LEVEL 175 MG/DL (<200); CHOLESTEROL RISK RATIO 2.134 (<5); GLOMERULAR FILTRATION RATE > 60.0 (>51); GLUCOSE, FASTING 88 MG/DL (70-100); HDL CHOLESTEROL 82 MG/DL (>40); LDL CHOLESTEROL 65 MG/DL (<100); NON-HDL-C 93 MG/DL; SODIUM LEVEL 140 MEQ/L (136-145); TRIGLYCERIDES LEVEL 141 MG/DL (<150)
[2019-12-03 14:40] LABS: HEMOGLOBIN A1c 5.5 %
== END ==
LOC: M SFHCPLAZ 10:39
PROVIDERS: ATTEND Family Medicine
DX: Z01.818 Encounter for other preprocedural examination (principal); E11.9 Type 2 diabetes mellitus without complications; E78.2 Mixed hyperlipidemia

== ENCOUNTER → 2019-12-07 | Outpatient (CLI) | payer OTHER ==
[~2019-12-07] MED LIST changes: +GABA800T4 PO; +OXYC10TA12 PO
== END ==
LOC: M LABSMTC 10:22
PROVIDERS: ATTEND Anesthesiology
DX: Z01.812 Encounter for preprocedural laboratory examination (principal); Z20.828 Contact with and (suspected) exposure to other viral communicable diseases
CPT/HCPCS: C9803; U0003

== ENCOUNTER 2019-12-12 06:17 | Day surgery (SDC) | payer OTHER ==
[~2019-12-12] VITALS: Ht 162.6 cm; Wt 83.2 kg
[~2019-12-12 06:17] MED LIST changes: +CLINDAMYCIN 600 MG in IV 1 EA IV ONE; -GABA800T4 PO; -HYDR-4514 PO; +LR 1,000 ML IV ONE; -OXYC10TA12 PO
[2019-12-12] MEDS ORDERED: BUPIVACAINE HCL 0.5% 30 ML VIAL As Ordered ONE (07:15)
[2019-12-12] MEDS ORDERED: LIDOCAINE 1% SDV 30ML VIAL As Ordered ONE (07:15)
[2019-12-12] MEDS ORDERED: dexameTHASONE 4 MG/ML 1ML VIAL (J1100 PER 1MG) As Ordered ONE (07:15)
[2019-12-12] MEDS ORDERED: propofoL 200 MG/20 ML VIAL As Ordered ONE (07:44)
[2019-12-12] MEDS ORDERED: MIDAZOLAM INJ 2MG/2ML VIAL (J2250 PER 1MG) As Ordered ONE (07:44)
[2019-12-12] MEDS ORDERED: fentaNYL 100 MCG/2 ML INJECTION (J3010) As Ordered ONE (07:44)
[2019-12-12] MEDS ORDERED: LABETALOL 100MG/20ML VIAL As Ordered ONE (07:53)
[2019-12-12] MEDS ORDERED: HYDR-4514 PO (08:32)
[2019-12-12 09:45] VITALS: BP 138/80
--- NOTE | 2019-12-12 16:07 | RO ---
DATE OF SURGERY: 12/12/2019 SURGEON: Lev Whitten DPM AERIAL PHOTOGRAPHER: None. PREOPERATIVE DIAGNOSES: * Left foot first metatarsal exostosis. * Third metatarsal deformity. * Third and fourth toe hammertoe. POSTOPERATIVE DIAGNOSES: * Left foot first metatarsal exostosis. * Third metatarsal deformity. * Third and fourth toe hammertoe. PROCEDURE: * Left first metatarsal exostectomy. * Third metatarsal shortening osteotomy. * Third and fourth toe flexor tenotomy. ANESTHESIA: Monitored anesthesia care. PREOPERATIVE INJECTION: 17 cc of a one-to-one mixture of 1% lidocaine plain and 0.5% Marcaine plain. ESTIMATED BLOOD LOSS: Minimal. MATERIALS: Arthrex 2.5 Headless Compression Screws, 4-0 Vicryl, 4-0 nylon. INJECTABLES: 1 mL Decadron 4 mg/mL. COMPLICATIONS: None. CONDITION: Stable. INDICATIONS: Stacia Sarkar is a 54-year-old female who had previous first metatarsophalangeal joint fusion. She has some remaining bone spurs. She also has deformity resulting in painful callous and hammertoe deformity on her left foot. She presents today for surgical correction. The patient's side and site were identified and marked in the pre-operative area. Consent was reviewed and obtained. All risks, complications, and alternatives to the procedure were explained to the patient in detail and all questions were answered. PROCEDURE: The patient was brought to the operating room and placed on the operating room table in the supine position. Monitored anesthesia care was delivered by the anesthesia team. Preoperative injection of 17 mL of a one-to-one mixture of 1% lidocaine plain and 0.5% Marcaine plain were injected into the left foot. The left foot was prepped and draped in normal sterile fashion. A tourniquet was applied to the left ankle and inflated at 215 mmHg. A dorsal incision was made through the previous scar at the first metatarsal. Two bone spurs were noted on the metatarsal and phalanx, which aligned with the painful corns at that site. The spurs were removed with the sagittal saw and smoothed rasp. The site was irrigated with normal saline. The incision was repaired with 4-0 nylon. Next, flexor tenotomy was performed at the third and fourth toes using an 18- gauge needle. A percutaneous flexor tenotomy was performed and improvement in the toe position was noted. Following this, the metatarsal was addressed. A dorsal incision was made over the third metatarsal. Dissection was carried down to the metatarsophalangeal joint. A linear capsulotomy was performed exposing the metatarsal head. Medial and lateral surfaces were released and McClamary elevator was used to release the plantar structure. An osteotomy was performed at the metatarsal head, transposing it proximally. This was fixated with an Arthrex 2.5 Headless Compression Screw. The remaining bone ledge was resected with rongeurs and smoothed with a rasp. It was irrigated with normal saline. The incision was repaired with 4-0 Vicryl and 4-0 nylon. Then, 1 mL of Decadron was injected. Sterile dressings were applied. The tourniquet was deflated. The patient was brought to the PACU with vital signs stable and neurovascular status intact. She will be weightbearing as tolerated. She will follow up in the office next week. ANDRÉS
== END 2019-12-12 10:00 | disposition home or self-care (01) ==
LOC: M SDC 06:17
PROVIDERS: ATTEND Podiatrist Foot & Ankle Surgery
DX: M89.8X7 Other specified disorders of bone, ankle and foot (principal); M20.42 Other hammer toe(s) (acquired), left foot; M20.62 Acquired deformities of toe(s), unspecified, left foot; Z88.0 Allergy status to penicillin
CPT/HCPCS: 28011; 28122; 28308; 88300; C1713; J1100; J2250; J3010

== ENCOUNTER 2019-12-30 01:43 | Emergency (ER) | payer OTHER ==
[~2019-12-30] VITALS: Ht 162.6 cm; Wt 77.7 kg
[~2019-12-30 01:43] MED LIST changes: -CLINDAMYCIN 600 MG in IV 1 EA IV ONE; +HYDR-4514 PO; -LR 1,000 ML IV ONE
[2019-12-30] MEDS ORDERED: OXYC10TA12 PO (02:05)
[2019-12-30] MEDS ORDERED: GABA800T4 PO (02:05)
[2019-12-30 03:02] VITALS: BP 150/98
== END 2019-12-30 03:11 | disposition home or self-care (01) ==
LOC: M ED 01:43
DX: G40.909 Epilepsy, unspecified, not intractable, without status epilepticus (principal); I10 Essential (primary) hypertension; M32.9 Systemic lupus erythematosus, unspecified; Z98.84 Bariatric surgery status; Z79.899 Other long term (current) drug therapy; Z88.0 Allergy status to penicillin

== ENCOUNTER → 2020-01-07 | Outpatient (CLI) | payer OTHER ==
[~2020-01-07] MED LIST changes: +GABA800T4 PO; +OXYC10TA12 PO
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
== END ==
LOC: M PAIN 11:00
PROVIDERS: ATTEND Nurse Practitioner Family
DX: G89.28 Other chronic postprocedural pain (principal); M46.1 Sacroiliitis, not elsewhere classified; I10 Essential (primary) hypertension; E78.5 Hyperlipidemia, unspecified; K21.9 Gastro-esophageal reflux disease without esophagitis; F31.9 Bipolar disorder, unspecified; F43.10 Post-traumatic stress disorder, unspecified; E66.01 Morbid (severe) obesity due to excess calories; F41.9 Anxiety disorder, unspecified; G40.909 Epilepsy, unspecified, not intractable, without status epilepticus; J45.30 Mild persistent asthma, uncomplicated; Z87.891 Personal history of nicotine dependence; Z79.891 Long term (current) use of opiate analgesic; Z79.899 Other long term (current) drug therapy; Z88.0 Allergy status to penicillin; Z68.31 Body mass index [BMI] 31.0-31.9, adult

== ENCOUNTER → 2020-01-10 | Outpatient (CLI) | payer OTHER ==
[2020-01-10 09:51] LABS: BASO % 0.3 % (0.0-1.0); EOS % 0.8 % (0.0-3.0); HEMATOCRIT 39.6 % (36.0-47.0); HEMOGLOBIN 12.8 g/dl (12.0-15.5); LYMPH # 1.9 10^3/uL (1.5-5.0); LYMPH % 51.6 % (24.0-44.0); MEAN CORPUSCULAR HEMOGLOBIN 31.4 pg (27.0-33.0); MEAN CORPUSCULAR HGB CONC 32.3 g/dl (32.0-36.5); MEAN CORPUSCULAR VOLUME 97.1 fl (80.0-96.0); MONO # 0.5 10^3/uL (0.0-0.8); MONO % 13.4 % (0.0-5.0); NEUTROPHILS # 1.2 10^3/uL (1.5-8.5); NEUTROPHILS % 33.6 % (36.0-66.0); PLATELET COUNT, AUTOMATED 177 10^3/uL (150-450); RED BLOOD COUNT 4.08 10^6/uL (4.00-5.40); WHITE BLOOD COUNT 3.7 10^3/uL (4.0-10.0)
[2020-01-10 10:27] LABS: ALBUMIN 3.3 GM/DL (3.2-5.2); ALT/SGPT 21 U/L (12-78); BILIRUBIN,TOTAL 0.3 MG/DL (0.2-1.0); BLOOD UREA NITROGEN 13 MG/DL (7-18); CARBON DIOXIDE LEVEL 28 MEQ/L (21-32); CHLORIDE LEVEL 109 MEQ/L (98-107); CREATININE FOR GFR 0.78 MG/DL (0.55-1.30); GLOMERULAR FILTRATION RATE > 60.0 (>51); GLUCOSE, FASTING 73 MG/DL (70-100); SODIUM LEVEL 143 MEQ/L (136-145); TOTAL PROTEIN 7.9 GM/DL (6.4-8.2)
== END ==
LOC: M LAB 09:15
PROVIDERS: ATTEND Dermatology
DX: Z51.81 Encounter for therapeutic drug level monitoring (principal); Z79.899 Other long term (current) drug therapy

== ENCOUNTER → 2020-02-14 | Outpatient (CLI) | payer OTHER ==
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
== END ==
LOC: M PAIN 14:45
PROVIDERS: ATTEND Nurse Practitioner Family
DX: M46.1 Sacroiliitis, not elsewhere classified (principal); G89.29 Other chronic pain; G40.909 Epilepsy, unspecified, not intractable, without status epilepticus; J45.30 Mild persistent asthma, uncomplicated; Z86.59 Personal history of other mental and behavioral disorders; Z98.84 Bariatric surgery status; Z87.891 Personal history of nicotine dependence; Z88.0 Allergy status to penicillin; Z79.891 Long term (current) use of opiate analgesic; Z79.899 Other long term (current) drug therapy

== ENCOUNTER → 2020-03-14 | Outpatient (CLI) | payer OTHER ==
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
== END ==
LOC: M PAIN 14:30
PROVIDERS: ATTEND Anesthesiology
DX: M46.1 Sacroiliitis, not elsewhere classified (principal); E11.9 Type 2 diabetes mellitus without complications; I10 Essential (primary) hypertension; E78.5 Hyperlipidemia, unspecified; K21.9 Gastro-esophageal reflux disease without esophagitis; F31.9 Bipolar disorder, unspecified; F43.10 Post-traumatic stress disorder, unspecified; E66.01 Morbid (severe) obesity due to excess calories; F41.9 Anxiety disorder, unspecified; Z68.30 Body mass index [BMI] 30.0-30.9, adult; M32.9 Systemic lupus erythematosus, unspecified; D47.2 Monoclonal gammopathy; G40.909 Epilepsy, unspecified, not intractable, without status epilepticus; J45.30 Mild persistent asthma, uncomplicated; Z87.891 Personal history of nicotine dependence; Z79.891 Long term (current) use of opiate analgesic; Z79.899 Other long term (current) drug therapy; Z79.52 Long term (current) use of systemic steroids; Z88.0 Allergy status to penicillin

== ENCOUNTER → 2020-03-15 | Outpatient (CLI) | payer OTHER | LOC: M LABSMTC 11:29 | PROVIDERS: ATTEND Anesthesiology | DX: Z20.822 Contact with and (suspected) exposure to COVID-19 (principal) ==

== ENCOUNTER → 2020-04-07 | Outpatient (CLI) | payer OTHER ==
[~2020-04-07] MED LIST changes: +LISI10TA22 PO; -LISI10TA4 PO
[2020-04-07 16:46] LABS: BASO % 0.2 % (0.0-1.0); EOS % 0.7 % (0.0-3.0); HEMATOCRIT 40.4 % (36.0-47.0); LYMPH # 1.6 10^3/uL (1.5-5.0); LYMPH % 39.2 % (24.0-44.0); MEAN CORPUSCULAR HEMOGLOBIN 31.6 pg (27.0-33.0); MEAN CORPUSCULAR HGB CONC 32.2 g/dl (32.0-36.5); MEAN CORPUSCULAR VOLUME 98.1 fl (80.0-96.0); MONO # 0.5 10^3/uL (0.0-0.8); MONO % 12.7 % (0.0-5.0); NEUTROPHILS # 1.9 10^3/uL (1.5-8.5); NEUTROPHILS % 47.2 % (36.0-66.0); PLATELET COUNT, AUTOMATED 159 10^3/uL (150-450); RED BLOOD COUNT 4.12 10^6/uL (4.00-5.40); WHITE BLOOD COUNT 4.1 10^3/uL (4.0-10.0)
[2020-04-07 17:17] LABS: ALBUMIN 3.3 GM/DL (3.2-5.2); ALT/SGPT 24 U/L (12-78); BILIRUBIN,TOTAL 0.3 MG/DL (0.2-1.0); BLOOD UREA NITROGEN 14 MG/DL (7-18); CALCIUM LEVEL 9.4 MG/DL (8.5-10.1); CARBON DIOXIDE LEVEL 27 MEQ/L (21-32); CHLORIDE LEVEL 107 MEQ/L (98-107); CREATININE FOR GFR 0.83 MG/DL (0.55-1.30); GLOMERULAR FILTRATION RATE > 60.0 (>51); GLUCOSE, FASTING 81 MG/DL (70-100); SODIUM LEVEL 142 MEQ/L (136-145); TOTAL PROTEIN 7.6 GM/DL (6.4-8.2)
[2020-04-07 17:24] LABS: FOLATE 18.4 NG/ML (>5.4); FREE T4 0.86 NG/DL (0.76-1.46); THYROID STIMULATING HORMONE 0.752 uIU/ML (0.358-3.740)
[2020-04-07 20:18] LABS: HEMOGLOBIN A1c 5.4 %; HEMOGLOBIN A1c 5.5 %
== END ==
LOC: M PLALAB 10:02
PROVIDERS: ATTEND Psychiatry & Neurology Neurology
DX: D51.9 Vitamin B12 deficiency anemia, unspecified (principal); E11.40 Type 2 diabetes mellitus with diabetic neuropathy, unspecified; R26.81 Unsteadiness on feet; Z79.899 Other long term (current) drug therapy

== ENCOUNTER → 2020-04-15 | Outpatient (CLI) | payer OTHER ==
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
== END ==
LOC: M PAIN 15:00
PROVIDERS: ATTEND Anesthesiology
DX: M46.1 Sacroiliitis, not elsewhere classified (principal); M53.3 Sacrococcygeal disorders, not elsewhere classified; I10 Essential (primary) hypertension; E78.5 Hyperlipidemia, unspecified; K21.9 Gastro-esophageal reflux disease without esophagitis; F31.9 Bipolar disorder, unspecified; F41.9 Anxiety disorder, unspecified; G40.909 Epilepsy, unspecified, not intractable, without status epilepticus; J45.30 Mild persistent asthma, uncomplicated; Z87.891 Personal history of nicotine dependence; Z98.84 Bariatric surgery status; Z79.891 Long term (current) use of opiate analgesic; Z79.52 Long term (current) use of systemic steroids; Z88.0 Allergy status to penicillin

== ENCOUNTER → 2020-04-16 | Outpatient (CLI) | payer OTHER | LOC: M LABSMTC 13:23 | PROVIDERS: ATTEND Anesthesiology | DX: Z20.822 Contact with and (suspected) exposure to COVID-19 (principal) ==

== ENCOUNTER → 2020-04-21 | Outpatient (CLI) | payer OTHER ==
[~2020-04-21] MED LIST changes: +BUPIVACAINE HCL 0.25% 30ML VIAL As Ordered ONE; +ISOVUE-M 300 61% 15ML VIAL As Ordered ONE; +LIDOCAINE 1% SDV 30ML VIAL As Ordered ONE; +MIDAZOLAM INJ 2MG/2ML VIAL (J2250 PER 1MG) As Ordered ONE; +TRIAMCINOLONE ACETONIDE SUSP 40 MG/ML VIAL (J3301) As Ordered ONE; +fentaNYL 100 MCG/2 ML INJECTION (J3010) As Ordered ONE
--- NOTE | 2020-04-21 17:35 | REP ---
INDICATION: BILAT SIJ. COMPARISON: None. TECHNIQUE: Five views. 33.2 seconds of fluoroscopy time is reported. FINDINGS: A sequence of 5 last image hold fluoroscopically obtained spot radiographs of the SI joints bilaterally document needle position and contrast injection associated with injection procedure. IMPRESSION: Procedural imaging. <Electronically signed by Bola Cui > 04/21/20 [id number]
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
== END ==
LOC: M PAIN 12:30
PROVIDERS: ATTEND Anesthesiology
DX: M46.1 Sacroiliitis, not elsewhere classified (principal); K21.9 Gastro-esophageal reflux disease without esophagitis; G40.909 Epilepsy, unspecified, not intractable, without status epilepticus; J45.30 Mild persistent asthma, uncomplicated; Z86.59 Personal history of other mental and behavioral disorders; Z87.891 Personal history of nicotine dependence; Z88.0 Allergy status to penicillin; Z79.899 Other long term (current) drug therapy
CPT/HCPCS: 27096; 99152; J2250; J3010; J3301; Q9967

== ENCOUNTER → 2020-05-07 | Outpatient (CLI) | payer OTHER ==
[~2020-05-07] MED LIST changes: -BUPIVACAINE HCL 0.25% 30ML VIAL As Ordered ONE; -ISOVUE-M 300 61% 15ML VIAL As Ordered ONE; -LIDOCAINE 1% SDV 30ML VIAL As Ordered ONE; -MIDAZOLAM INJ 2MG/2ML VIAL (J2250 PER 1MG) As Ordered ONE; -TRIAMCINOLONE ACETONIDE SUSP 40 MG/ML VIAL (J3301) As Ordered ONE; -fentaNYL 100 MCG/2 ML INJECTION (J3010) As Ordered ONE
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
== END ==
LOC: M PAIN 11:00
PROVIDERS: ATTEND Nurse Practitioner Family
DX: G89.29 Other chronic pain (principal); M46.1 Sacroiliitis, not elsewhere classified; I10 Essential (primary) hypertension; E78.5 Hyperlipidemia, unspecified; K21.9 Gastro-esophageal reflux disease without esophagitis; F31.9 Bipolar disorder, unspecified; F43.10 Post-traumatic stress disorder, unspecified; M54.31 Sciatica, right side; M54.32 Sciatica, left side; F41.9 Anxiety disorder, unspecified; G40.909 Epilepsy, unspecified, not intractable, without status epilepticus; J45.20 Mild intermittent asthma, uncomplicated; L93.0 Discoid lupus erythematosus; Z79.891 Long term (current) use of opiate analgesic; Z87.891 Personal history of nicotine dependence; Z79.52 Long term (current) use of systemic steroids; Z79.899 Other long term (current) drug therapy; Z98.84 Bariatric surgery status

== ENCOUNTER → 2020-06-02 | Outpatient (CLI) | payer OTHER ==
[~2020-06-02] MED LIST changes: +OXYC5SOL11 PO
== END ==
LOC: M LABSMTC 09:53
PROVIDERS: ATTEND Anesthesiology
DX: Z01.812 Encounter for preprocedural laboratory examination (principal)

== ENCOUNTER → 2020-06-04 | Outpatient (CLI) | payer OTHER ==
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
== END ==
LOC: M PAIN 13:45
PROVIDERS: ATTEND Nurse Practitioner Family
DX: Z51.81 Encounter for therapeutic drug level monitoring (principal); Z79.891 Long term (current) use of opiate analgesic; I10 Essential (primary) hypertension; E78.5 Hyperlipidemia, unspecified; K21.9 Gastro-esophageal reflux disease without esophagitis; F31.9 Bipolar disorder, unspecified; F43.10 Post-traumatic stress disorder, unspecified; F41.9 Anxiety disorder, unspecified; G40.909 Epilepsy, unspecified, not intractable, without status epilepticus; J45.20 Mild intermittent asthma, uncomplicated; Z87.891 Personal history of nicotine dependence; Z79.52 Long term (current) use of systemic steroids; Z79.899 Other long term (current) drug therapy; Z88.0 Allergy status to penicillin

== ENCOUNTER 2020-06-06 12:46 | Day surgery (SDC) | payer OTHER ==
[~2020-06-06] VITALS: Ht 162.6 cm; Wt 76.8 kg
[~2020-06-06 12:46] MED LIST changes: +LIDOCAINE 2% 100MG/5ML SDV (FOR ANES.) As Ordered ONE; +NS 1,000 ML IV ONE; +propofoL 200 MG/20 ML VIAL As Ordered ONE
[2020-06-06] MEDS ORDERED: fentaNYL 100 MCG/2 ML INJECTION (J3010) As Ordered ONE (13:38)
--- NOTE | 2020-06-06 14:09 | ROOR ---
Patient Name: Stacia Sarkar Procedure Date: 06/06/2020 1:37 PM Date of : 1965 Age: 55 Room: [facility] Gender: Female Note Status: Finalized Procedure: Upper GI endoscopy Indications: Epigastric abdominal pain, Follow-up of gastrojejunal ulcer Providers: Parish Vásquez MD Referring MD: Chanel Fenton MD Requesting Provider: Medicines: Monitored Anesthesia Care Complications: No immediate complications. Procedure: Pre-Anesthesia Assessment: - Prior to the procedure, a History and Physical was performed, and patient medications and allergies were reviewed. The patient is competent. The risks and benefits of the procedure and the sedation options and risks were discussed with the patient. All questions were answered and informed consent was obtained. Patient identification and proposed procedure were verified by the physician, the nurse and the anesthesiologist in the procedure room. Mental Status Examination: alert and oriented. Airway Examination: normal oropharyngeal airway and neck mobility. Respiratory Examination: clear to auscultation. CV Examination: normal. Prophylactic Antibiotics: The patient does not require prophylactic antibiotics. Prior Anticoagulants: The patient has taken no previous anticoagulant or antiplatelet agents. ASA Grade Assessment: III - A patient with severe systemic disease. After reviewing the risks and benefits, the patient was deemed in satisfactory condition to undergo the procedure. The anesthesia plan was to use monitored anesthesia care (MAC). Immediately prior to administration of medications, the patient was re-assessed for adequacy to receive sedatives. The heart rate, respiratory rate, oxygen saturations, blood pressure, adequacy of pulmonary ventilation, and response to care were monitored throughout the procedure. The physical status of the patient was re-assessed after the procedure. The Endoscope was introduced through the mouth, and advanced to the jejunum. The upper GI endoscopy was accomplished without difficulty. The patient tolerated the procedure well. Findings: The examined esophagus was normal. Evidence of a Fausto-en-Y gastrojejunostomy was found. The gastrojejunal anastomosis was characterized by healthy appearing mucosa. This was traversed. The rixjw-ss-jpozjkp limb was characterized by healthy appearing mucosa. The djcpecaj-uk-qhpvxpf limb was not examined as it could not be found. The examined jejunum was normal. Impression: - Normal esophagus. - Fausto-en-Y gastrojejunostomy with gastrojejunal anastomosis characterized by healthy appearing mucosa. - Normal examined jejunum. - No specimens collected. Recommendation: - Patient has a contact number available for emergencies. The signs and symptoms of potential delayed complications were discussed with the patient. Return to normal activities tomorrow. Written discharge instructions were provided to the patient. - Post gastric bypass diet (small frequent meals and avoid fatty/ fried foods). - Continue present medications. - Follow an antireflux regimen. - Telephone GI clinic if symptomatic. - Return to primary care physician. Procedure Code(s): --- Professional --- 41336, Esophagogastroduodenoscopy, flexible, transoral; diagnostic, including collection of specimen(s) by brushing or washing, when performed (separate procedure) Diagnosis Code(s): --- Professional --- Z98.0, Intestinal bypass and anastomosis status R10.13, Epigastric pain K28.9, Gastrojejunal ulcer, unspecified as acute or chronic, without hemorrhage or perforation CPT copyright 2019 [employer]. All rights reserved. The codes documented in this report are preliminary and upon rn otolaryngology review may be revised to meet current compliance requirements. Parish Vásquez MD Parish Vásquez MD 06/06/2020 2:09:17 PM Electronically signed by Parish Vásquez MD Number of Addenda: 0 Note Initiated On: 06/06/2020 1:37 PM Estimated Blood Loss: Estimated blood loss: none.
[2020-06-06 14:25] VITALS: BP 128/77
== END 2020-06-06 16:04 | disposition home or self-care (01) ==
LOC: M OPP 12:46
PROVIDERS: ATTEND Internal Medicine Gastroenterology
DX: K28.9 Gastrojejunal ulcer, unspecified as acute or chronic, without hemorrhage or perforation (principal); Z98.0 Intestinal bypass and anastomosis status; R10.13 Epigastric pain; Z79.891 Long term (current) use of opiate analgesic; Z79.899 Other long term (current) drug therapy; Z88.8 Allergy status to other drugs, medicaments and biological substances; Z80.41 Family history of malignant neoplasm of ovary; Z80.0 Family history of malignant neoplasm of digestive organs
CPT/HCPCS: 43235; J3010

== ENCOUNTER → 2020-07-07 | Outpatient (CLI) | payer OTHER ==
[~2020-07-07] MED LIST changes: -LIDOCAINE 2% 100MG/5ML SDV (FOR ANES.) As Ordered ONE; -NS 1,000 ML IV ONE; -propofoL 200 MG/20 ML VIAL As Ordered ONE
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
== END ==
LOC: M PAIN 13:45
PROVIDERS: ATTEND Nurse Practitioner Family
DX: M19.90 Unspecified osteoarthritis, unspecified site (principal); G89.29 Other chronic pain; G40.909 Epilepsy, unspecified, not intractable, without status epilepticus; J45.30 Mild persistent asthma, uncomplicated; Z86.59 Personal history of other mental and behavioral disorders; Z87.891 Personal history of nicotine dependence; Z88.0 Allergy status to penicillin; Z79.891 Long term (current) use of opiate analgesic; Z79.899 Other long term (current) drug therapy

== ENCOUNTER → 2020-07-08 | Outpatient (REF) | payer OTHER ==
[2020-07-08 15:05] LABS: BASO % 0.2 % (0.0-1.0); EOS % 0.4 % (0.0-3.0); HEMATOCRIT 36.8 % (36.0-47.0); HEMOGLOBIN 11.8 g/dl (12.0-15.5); LYMPH # 1.5 10^3/uL (1.5-5.0); LYMPH % 32.7 % (24.0-44.0); MEAN CORPUSCULAR HEMOGLOBIN 31.2 pg (27.0-33.0); MEAN CORPUSCULAR HGB CONC 32.1 g/dl (32.0-36.5); MEAN CORPUSCULAR VOLUME 97.4 fl (80.0-96.0); MONO # 0.5 10^3/uL (0.0-0.8); NEUTROPHILS # 2.5 10^3/uL (1.5-8.5); NEUTROPHILS % 56.5 % (36.0-66.0); PLATELET COUNT, AUTOMATED 146 10^3/uL (150-450); RED BLOOD COUNT 3.78 10^6/uL (4.00-5.40); WHITE BLOOD COUNT 4.5 10^3/uL (4.0-10.0)
[2020-07-08 15:41] LABS: ALBUMIN 3.2 GM/DL (3.2-5.2); ALT/SGPT 18 U/L (12-78); BILIRUBIN,TOTAL 0.3 MG/DL (0.2-1.0); BLOOD UREA NITROGEN 13 MG/DL (7-18); CALCIUM LEVEL 8.8 MG/DL (8.5-10.1); CARBON DIOXIDE LEVEL 28 MEQ/L (21-32); CHLORIDE LEVEL 109 MEQ/L (98-107); CREATININE FOR GFR 0.76 MG/DL (0.55-1.30); GLOMERULAR FILTRATION RATE > 60.0 (>51); GLUCOSE, FASTING 72 MG/DL (70-100); POTASSIUM SERUM 4.3 MEQ/L (3.5-5.1); SODIUM LEVEL 139 MEQ/L (136-145); TOTAL PROTEIN 7.8 GM/DL (6.4-8.2)
== END ==
LOC: M SFHCDERM 12:04
PROVIDERS: ATTEND Dermatology
DX: Z79.899 Other long term (current) drug therapy (principal)

== ENCOUNTER → 2020-07-11 | Outpatient (CLI) | payer OTHER ==
--- NOTE | 2020-07-11 13:18 | REP ---
INDICATION: N63.10/N63.20 SIGRID DIAG MAMMO/SIGRID BREAST LUMPS. COMPARISON: All priors were reviewed the latest of which is dated 10/24/2019 TECHNIQUE: Bilateral diagnostic mammography was obtained using digital technique in both 2D and 3D modalities in the CC and MLO projections. Additionally, diagnostic digital magnified spot compression views of each breast were obtained in the CC and MLO projections over the regions of interest indicated by the technologist placing a triangular-shaped marker on the skin. FINDINGS: The breasts are essentially unchanged in size and shape. Right breast: There is no area spiculation or internal architectural distortion. There is a wall calcified oil cyst in the region of the clinically palpable mass. Diagnostic digital magnified spot compression views of the region of interest show persistence of the cyst, however, there is no evidence of a breast parenchymal abnormality. Additional RCC nipple in profile view help confirm no abnormality is noted. Ultrasonography right breast region of interest shows a round nearly anechoic 1 cm sized structure. Shear wave elastography was performed on this showing low kPa values. This is consistent with a benign oil cyst. Left breast: Seen adjacent to the marker placed by the technologist there is a new area of internal architectural distortion and asymmetric density which has developed since the latest prior mammogram of 10/24/2019. This persists on spot compression views. Ultrasonography of the left breast region of interest shows an irregular solid nodule which exhibits slight acoustic shadowing and measures approximately 9 mm in its greatest dimension. Shear wave elastography was performed on this solid lesion and shows high kPa values. Also seen incidentally in the left breast is around 7 mm sized anechoic structure which exhibits posterior wall enhancement and increased through transmission. This is a simple cyst. Shear wave elastography was performed on this showing very low kPa values. The Volpara volumetric breast density pattern is b. CBE 1 month ago Keiko-Vack: 9.7 IMPRESSION: 1. There is a benign oil cyst in the right breast which is seen mammographically and ultrasonographically. ACR category 2 right breast 2. Seen mammographically and ultrasonographically there is an abnormality which has developed since the latest prior mammogram of 10/24/2019 as described above. Biopsy of this lesion is recommended. ACR category 4 left breast 3. Also seen in the left breast is an incidental cyst as described above. RECOMMENDATION: As above <Electronically signed by Lawrence Nino > 07/11/20 [id number]
== END ==
LOC: M WHC 08:54
PROVIDERS: ATTEND Family Medicine
DX: N63.20 Unspecified lump in the left breast, unspecified quadrant (principal); N63.10 Unspecified lump in the right breast, unspecified quadrant; N60.01 Solitary cyst of right breast; N60.02 Solitary cyst of left breast
CPT/HCPCS: 76642; 77066; G0279

== ENCOUNTER → 2020-07-23 | Outpatient (CLI) | payer OTHER ==
--- NOTE | 2020-07-23 12:57 | REP ---
INDICATION: R59.9 LT AXILLA PALPABLE LYMPH NODE COMPARISON: None TECHNIQUE: Realtime grayscale ultrasound examination using linear high-frequency transducer. FINDINGS: Directed ultrasound examination at the left axillary region demonstrates multiple normal appearing lymph nodes, the largest of which measure 11 x 7 x 9 mm, 20 x 6 x 13 mm, and 23 x 6 x 15 mm. No further fluid collection, abnormality or mass lesion. IMPRESSION: Few benign appearing lymph nodes as noted above. <Electronically signed by Darrin Collins > 07/23/20 [id number]
--- NOTE | 2020-07-23 14:14 | REP ---
INDICATION: N63.10 MASS OF RT BREAST. Palpable area of tissue, possibly scar from breast reduction 5 o'clock region 6 cm from the nipple. Mass right breast. COMPARISON: Comparison is made with recent right breast mammography July 11, 2020.. TECHNIQUE: Targeted right breast sonography. 5 o'clock position. FINDINGS: Scanning in the area the palpable abnormality 5 o'clock position in the right breast demonstrates mildly heterogeneous background echotexture. No cyst mass or acoustic shadowing is seen. IMPRESSION: No suspicious sonographic findings. BI-RADS category negative sonographic findings of this targeted right breast exam. <Electronically signed by Bola Cui > 07/23/20 1631
== END ==
LOC: M WHC 10:23
PROVIDERS: ATTEND Surgery
DX: N63.10 Unspecified lump in the right breast, unspecified quadrant (principal); R59.9 Enlarged lymph nodes, unspecified

== ENCOUNTER → 2020-07-30 | Outpatient (CLI) | payer OTHER ==
[~2020-07-30] MED LIST changes: +FOLI1TAB11 PO
[2020-07-30 09:57] VITALS: BP 146/88
--- NOTE | 2020-07-31 10:04 | REP ---
INDICATION: N63.20 LT BREAST MASS,POST US GUIDED BREAST BIOPSY. COMPARISON: 07/11/2020. TECHNIQUE: ML and CC views left breast performed. FINDINGS: A biopsy clip seen in the upper left breast. IMPRESSION: A biopsy clip is seen in the upper left breast. RECOMMENDATION: None. <Electronically signed by Zachery Wong > 07/31/20 1001
--- NOTE | 2020-08-02 17:12 | ROOPDOC ---
[facility] Report Of Operation Report of Operation DATE OF PROCEDURE: 07/30/20 DIAGNOSIS: left breast suspicious lesion PROCEDURE: ultrasound guided biopsy of the left breast suspicious lesion with clip placement SURGEON: Randy Davalos BLOOD LOSS: minimal COMPLICATIONS: none Lidocaine 1% LOT [id number] Expiration 08/2023 Sodium Bicarbonate 8.4% LOT [id number] Expiration 03/2021 Hydromark clip LOT [id number] Expiration 07/2022 SHAPE : 3 Bx device: BARD [id number] x10 cm LOT [id number] Expiration 03/2023 Informed consent was obtained. The most common risk and possible complications including bleeding, hematoma, bruising, infection, injury to surrounding structures were explained to the patient and the patient expressed understanding. Patient was placed on the bed in the supine position. Appropriate time out was done stating patients name, date of , and the procedure to be performed. The left breast was prepped and draped in the usual fashion. The ultrasound was used to confirm the location of the lesion in the left breast at 1:00 3 centimeters from the nipple. Plain Lidocaine 1% and 8.4% sodium bicarbonate 10:1 mix was used to anesthetize the skin, the biopsy site and tissues along the anticipated biopsy tract. Small skin incision was made with blade number 11. BARD Marquee 14G cannula with introducer ([id number]) was inserted through the incision and advanced under the ultrasound guidance to position immediately adjacent to the lesion. Next, the introducer was removed and BARD Marquee 14G biopsy device was places in the cannula. Pre-biopsy imaging, and post-biopsy imaging were captured. Five good core biopsies were taken at various levels of the lesion. Specimen was placed in formaldehyde, labeled with appropriate biopsy site and patients name, and sent to pathology for evaluation. Next, the biopsy device was withdrawn and a clip introducer was inserted into the biopsy site via the cannula. SHAPE 3 Hydromark clip was deployed under sonographic guidance. Post-clip placement image was captured. Manual pressure over the biopsy cavity and tract was held after the clip introducer was withdrawn. No bleeding was noted upon removal of the pressure. Post-biopsy mammogram of the left breast was obtained and showed clip in expected position. Postprocedural dressing was placed. Patient tolerated procedure well. Discharge instructions were discussed with the patient and the patient expressed understanding. RANDY DAVALOS DO Aug 02, 2020 17:12
== END ==
LOC: M WHCPRO 06:45
PROVIDERS: ATTEND Surgery
DX: D24.2 Benign neoplasm of left breast (principal)

== ENCOUNTER → 2020-08-04 | Outpatient (CLI) | payer OTHER ==
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
== END ==
LOC: M PAIN 14:00
PROVIDERS: ATTEND Nurse Practitioner Family
DX: G89.29 Other chronic pain (principal); I10 Essential (primary) hypertension; E78.5 Hyperlipidemia, unspecified; K21.9 Gastro-esophageal reflux disease without esophagitis; F31.9 Bipolar disorder, unspecified; F43.10 Post-traumatic stress disorder, unspecified; E66.01 Morbid (severe) obesity due to excess calories; F41.9 Anxiety disorder, unspecified; D47.2 Monoclonal gammopathy; G40.909 Epilepsy, unspecified, not intractable, without status epilepticus; J45.30 Mild persistent asthma, uncomplicated; M54.31 Sciatica, right side; M54.32 Sciatica, left side; Z87.891 Personal history of nicotine dependence; Z79.891 Long term (current) use of opiate analgesic; Z79.899 Other long term (current) drug therapy; Z88.0 Allergy status to penicillin; L93.0 Discoid lupus erythematosus

== ENCOUNTER → 2020-09-05 | Outpatient (CLI) | payer OTHER ==
[~2020-09-05] MED LIST changes: +OMEP40CA4 PO; -OMEP40CA97 PO
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
== END ==
LOC: M PAIN 14:30
PROVIDERS: ATTEND Nurse Practitioner Family
DX: M19.90 Unspecified osteoarthritis, unspecified site (principal); G89.29 Other chronic pain; G40.909 Epilepsy, unspecified, not intractable, without status epilepticus; J45.30 Mild persistent asthma, uncomplicated; Z86.59 Personal history of other mental and behavioral disorders; Z87.891 Personal history of nicotine dependence; Z88.0 Allergy status to penicillin; Z79.891 Long term (current) use of opiate analgesic; Z79.899 Other long term (current) drug therapy

== ENCOUNTER 2020-10-18 23:35 | Emergency (ER) | payer OTHER ==
[~2020-10-18] VITALS: Ht 162.6 cm; Wt 73.1 kg
[2020-10-18 23:52] VITALS: BP 141/71
== END 2020-10-19 02:16 | disposition left against medical advice (07) ==
LOC: M ED 23:35
DX: Z53.21 Procedure and treatment not carried out due to patient leaving prior to being seen by health care provider (principal)

== ENCOUNTER → 2020-10-30 | Outpatient (CLI) | payer OTHER ==
--- NOTE | 2020-10-30 09:07 | REP ---
INDICATION: ENCOUNTER FOR OTHER PREPROCEDURAL EXAMINATION COMPARISON: 01/05/2019 TECHNIQUE: PA and lateral. FINDINGS: The mediastinum and cardiac silhouette are normal. The lung eric are clear and without acute consolidation, effusion, or pneumothorax. The skeletal structures are intact and normal. IMPRESSION: No acute cardiopulmonary process. <Electronically signed by Darrin Collins > 10/30/20 0903
[2020-10-30 11:20] LABS: BASO % 0.4 % (0.0-1.0); EOS % 0.4 % (0.0-3.0); HEMATOCRIT 37.2 % (36.0-47.0); HEMOGLOBIN 12.1 g/dl (12.0-15.5); LYMPH # 1.1 10^3/uL (1.5-5.0); LYMPH % 50.7 % (24.0-44.0); MEAN CORPUSCULAR HEMOGLOBIN 31.1 pg (27.0-33.0); MEAN CORPUSCULAR HGB CONC 32.5 g/dl (32.0-36.5); MEAN CORPUSCULAR VOLUME 95.6 fl (80.0-96.0); MONO # 0.3 10^3/uL (0.0-0.8); MONO % 12.4 % (2.0-8.0); NEUTROPHILS % 36.1 % (36.0-66.0); PLATELET COUNT, AUTOMATED 149 10^3/uL (150-450); RED BLOOD COUNT 3.89 10^6/uL (4.00-5.40); WHITE BLOOD COUNT 2.3 10^3/uL (4.0-10.0)
[2020-10-30 11:36] LABS: HEMOGLOBIN A1c 5.5 %
[2020-10-30 11:46] LABS: BLOOD UREA NITROGEN 10 MG/DL (7-18); CALCIUM LEVEL 9.1 MG/DL (8.5-10.1); CARBON DIOXIDE LEVEL 28 MEQ/L (21-32); CHLORIDE LEVEL 109 MEQ/L (98-107); CHOLESTEROL LEVEL 156 MG/DL (<200); CREATININE FOR GFR 0.72 MG/DL (0.55-1.30); FERRITIN 171 NG/ML (8-252); GLOMERULAR FILTRATION RATE > 60.0 (>51); GLUCOSE, FASTING 83 MG/DL (70-100); HDL CHOLESTEROL 69 MG/DL (>40); IRON (FE) 70 UG/DL (50-170); LDL CHOLESTEROL 62 MG/DL (<100); MAGNESIUM LEVEL 2.1 MG/DL (1.8-2.4); NON-HDL-C 87 MG/DL; PERCENT SATURATION 25.4 % (13.2-45.0); PHOSPHORUS LEVEL 4.3 MG/DL (2.5-4.9); POTASSIUM SERUM 4.3 MEQ/L (3.5-5.1); SODIUM LEVEL 141 MEQ/L (136-145); TOTAL IRON BINDING CAPACITY 276 UG/DL (250-450); TRIGLYCERIDES LEVEL 123 MG/DL (<150)
[2020-10-30 11:53] LABS: VITAMIN B12 LEVEL 239 PG/ML (247-911)
[2020-10-30 11:57] LABS: HEMATOCRIT 37.2 % (36.0-47.0)
[2020-10-30 12:16] LABS: NEUTROPHILS # 0.8 10^3/uL (1.5-8.5)
[2020-11-05 14:09] LABS: VITAMIN A, RETINOL LEVEL 52.2 ug/dL (20.1-62.0); VITAMIN B1 LEVEL WHOLE BLOOD 80.5 nmol/L (66.5-200.0)
== END ==
LOC: M PLAIMG 08:38
PROVIDERS: ATTEND Family Medicine
DX: Z01.818 Encounter for other preprocedural examination (principal)

== ENCOUNTER → 2020-10-30 | Outpatient (CLI) | payer OTHER | LOC: M LABSMTC 09:10 | PROVIDERS: ATTEND Anesthesiology | DX: Z01.818 Encounter for other preprocedural examination (principal); Z11.52 Encounter for screening for COVID-19 ==

== ENCOUNTER → 2020-10-31 | Outpatient (REF) | payer OTHER | LOC: M LAB REF 17:18 | PROVIDERS: ATTEND Nurse Practitioner Women's Health | DX: H60.8X2 Other otitis externa, left ear (principal) ==

== ENCOUNTER → 2020-11-04 | Outpatient (CLI) | payer OTHER ==
[2020-11-04 18:13] LABS: HEMATOCRIT 35.7 % (36.0-47.0); HEMOGLOBIN 11.7 g/dl (12.0-15.5); MEAN CORPUSCULAR HEMOGLOBIN 31.7 pg (27.0-33.0); MEAN CORPUSCULAR HGB CONC 32.8 g/dl (32.0-36.5); MEAN CORPUSCULAR VOLUME 96.7 fl (80.0-96.0); PLATELET COUNT, AUTOMATED 146 10^3/uL (150-450); RED BLOOD COUNT 3.69 10^6/uL (4.00-5.40); WHITE BLOOD COUNT 3.7 10^3/uL (4.0-10.0)
[2020-11-04 19:35] LABS: ATYPICAL LYMPH 2 % (0-5); LYMPHOCYTES 35 % (16-44); MONOCYTES 10 % (0-5); NEUTROPHILS 52 % (28-66)
[2020-11-04 19:37] LABS: PLATELET ESTIMATE DECREASED (NORMAL)
== END ==
LOC: M PLALAB 13:56
PROVIDERS: ATTEND Family Medicine
DX: D70.9 Neutropenia, unspecified (principal)

== ENCOUNTER → 2020-11-06 | Outpatient (CLI) | payer OTHER | LOC: M PAIN 14:30 | PROVIDERS: ATTEND Anesthesiology | DX: M32.9 Systemic lupus erythematosus, unspecified (principal); E11.9 Type 2 diabetes mellitus without complications; I10 Essential (primary) hypertension; E78.5 Hyperlipidemia, unspecified; K21.9 Gastro-esophageal reflux disease without esophagitis; F31.9 Bipolar disorder, unspecified; F43.10 Post-traumatic stress disorder, unspecified; E66.01 Morbid (severe) obesity due to excess calories; F41.9 Anxiety disorder, unspecified; G40.909 Epilepsy, unspecified, not intractable, without status epilepticus; J45.30 Mild persistent asthma, uncomplicated; Z79.891 Long term (current) use of opiate analgesic; Z87.891 Personal history of nicotine dependence; Z79.899 Other long term (current) drug therapy; Z88.0 Allergy status to penicillin ==

== ENCOUNTER → 2020-11-07 | Outpatient (REF) | payer OTHER | LOC: M LAB REF 16:58 | PROVIDERS: ATTEND Physician Assistant Medical | DX: H60.8X1 Other otitis externa, right ear (principal) ==

== ENCOUNTER → 2020-11-07 | Outpatient (CLI) | payer OTHER ==
[2020-11-07 15:39] LABS: HEMATOCRIT 35.2 % (36.0-47.0); HEMOGLOBIN 11.4 g/dl (12.0-15.5); MEAN CORPUSCULAR HEMOGLOBIN 31.3 pg (27.0-33.0); MEAN CORPUSCULAR HGB CONC 32.4 g/dl (32.0-36.5); MEAN CORPUSCULAR VOLUME 96.7 fl (80.0-96.0); PLATELET COUNT, AUTOMATED 134 10^3/uL (150-450); RED BLOOD COUNT 3.64 10^6/uL (4.00-5.40); WHITE BLOOD COUNT 3.3 10^3/uL (4.0-10.0)
[2020-11-07 17:00] LABS: EOSINOPHILS 1 % (0-3); LYMPHOCYTES 40 % (16-44); MONOCYTES 13 % (0-5); NEUTROPHILS 46 % (28-66)
[2020-11-07 17:02] LABS: PLATELET ESTIMATE DECREASED (NORMAL)
== END ==
LOC: M PLALAB 12:10
PROVIDERS: ATTEND Family Medicine
DX: D72.819 Decreased white blood cell count, unspecified (principal)

== ENCOUNTER → 2020-11-13 | Outpatient (CLI) | payer OTHER ==
[2020-11-13 13:42] LABS: HEMATOCRIT 35.9 % (36.0-47.0); HEMOGLOBIN 11.6 g/dl (12.0-15.5); MEAN CORPUSCULAR HEMOGLOBIN 31.3 pg (27.0-33.0); MEAN CORPUSCULAR HGB CONC 32.3 g/dl (32.0-36.5); MEAN CORPUSCULAR VOLUME 96.8 fl (80.0-96.0); PLATELET COUNT, AUTOMATED 149 10^3/uL (150-450); RED BLOOD COUNT 3.71 10^6/uL (4.00-5.40); WHITE BLOOD COUNT 3.2 10^3/uL (4.0-10.0)
[2020-11-13 14:26] LABS: ATYPICAL LYMPH 3 % (0-5); BASOPHILS 1 % (0-1); EOSINOPHILS 1 % (0-3); LYMPHOCYTES 33 % (16-44); MONOCYTES 11 % (0-5); NEUTROPHILS 50 % (28-66)
[2020-11-13 14:27] LABS: ANISOCYTOSIS 1+; PLATELET ESTIMATE NORMAL (NORMAL)
== END ==
LOC: M PLALAB 09:46
PROVIDERS: ATTEND Family Medicine
DX: D72.819 Decreased white blood cell count, unspecified (principal)

== ENCOUNTER → 2020-12-02 | Outpatient (CLI) | payer OTHER ==
[2020-12-02 10:29] LABS: EOS % 0.6 % (0.0-3.0); HEMATOCRIT 36.1 % (36.0-47.0); HEMOGLOBIN 11.7 g/dl (12.0-15.5); LYMPH # 1.4 10^3/uL (1.5-5.0); LYMPH % 42.5 % (24.0-44.0); MEAN CORPUSCULAR HEMOGLOBIN 31.2 pg (27.0-33.0); MEAN CORPUSCULAR HGB CONC 32.4 g/dl (32.0-36.5); MEAN CORPUSCULAR VOLUME 96.3 fl (80.0-96.0); MONO # 0.4 10^3/uL (0.0-0.8); MONO % 11.9 % (2.0-8.0); NEUTROPHILS # 1.4 10^3/uL (1.5-8.5); NEUTROPHILS % 44.7 % (36.0-66.0); PLATELET COUNT, AUTOMATED 130 10^3/uL (150-450); RED BLOOD COUNT 3.75 10^6/uL (4.00-5.40); WHITE BLOOD COUNT 3.2 10^3/uL (4.0-10.0)
[2020-12-02 10:47] LABS: BLOOD UREA NITROGEN 10 MG/DL (7-18); CALCIUM LEVEL 8.6 MG/DL (8.5-10.1); CARBON DIOXIDE LEVEL 26 MEQ/L (21-32); CHLORIDE LEVEL 110 MEQ/L (98-107); CREATININE FOR GFR 0.79 MG/DL (0.55-1.30); GLOMERULAR FILTRATION RATE > 60.0 (>51); GLUCOSE, FASTING 87 MG/DL (70-100); SODIUM LEVEL 140 MEQ/L (136-145)
== END ==
LOC: M PLALAB 08:25
PROVIDERS: ATTEND Family Medicine
DX: I10 Essential (primary) hypertension (principal)

== ENCOUNTER 2020-12-08 10:41 | Emergency (ER) | payer OTHER ==
[~2020-12-08] VITALS: Ht 162.6 cm; Wt 68.3 kg
[2020-12-08 10:47] VITALS: BP 130/82
== END 2020-12-08 12:27 | disposition left against medical advice (07) ==
LOC: M ED 10:41
DX: Z53.21 Procedure and treatment not carried out due to patient leaving prior to being seen by health care provider (principal)

== ENCOUNTER → 2021-01-09 | Outpatient (CLI) | payer OTHER | LOC: M PAIN 14:45 | PROVIDERS: ATTEND Anesthesiology | DX: M79.18 Myalgia, other site (principal); M48.061 Spinal stenosis, lumbar region without neurogenic claudication; I10 Essential (primary) hypertension; E78.5 Hyperlipidemia, unspecified; K21.9 Gastro-esophageal reflux disease without esophagitis; F31.9 Bipolar disorder, unspecified; F43.10 Post-traumatic stress disorder, unspecified; F41.9 Anxiety disorder, unspecified; G40.909 Epilepsy, unspecified, not intractable, without status epilepticus; J45.30 Mild persistent asthma, uncomplicated; Z87.891 Personal history of nicotine dependence; L93.0 Discoid lupus erythematosus; D47.2 Monoclonal gammopathy; Z79.52 Long term (current) use of systemic steroids; Z79.891 Long term (current) use of opiate analgesic; Z79.899 Other long term (current) drug therapy; Z88.0 Allergy status to penicillin ==

== ENCOUNTER → 2021-03-31 | Outpatient (REF) | payer OTHER | LOC: M SFHCRHEU 14:11 | PROVIDERS: ATTEND Internal Medicine Rheumatology | DX: M32.19 Other organ or system involvement in systemic lupus erythematosus (principal); L93.0 Discoid lupus erythematosus; M35.01 Sjogren syndrome with keratoconjunctivitis; Z79.899 Other long term (current) drug therapy ==

== ENCOUNTER → 2021-06-15 | Outpatient (CLI) | payer OTHER ==
[~2021-06-15] MED LIST changes: -D31000TA2 PO; +VITA100093 PO
== END ==
LOC: M PLAIMG 08:03
PROVIDERS: ATTEND Anesthesiology
DX: M48.061 Spinal stenosis, lumbar region without neurogenic claudication (principal)

== ENCOUNTER → 2021-08-04 | Outpatient (CLI) | payer OTHER | LOC: M PAIN 11:30 | PROVIDERS: ATTEND Nurse Practitioner Family | DX: M51.16 Intervertebral disc disorders with radiculopathy, lumbar region (principal); Z79.891 Long term (current) use of opiate analgesic; I10 Essential (primary) hypertension; E78.5 Hyperlipidemia, unspecified; M19.071 Primary osteoarthritis, right ankle and foot; M19.072 Primary osteoarthritis, left ankle and foot; K21.9 Gastro-esophageal reflux disease without esophagitis; F31.9 Bipolar disorder, unspecified; F43.10 Post-traumatic stress disorder, unspecified; F41.9 Anxiety disorder, unspecified; G40.909 Epilepsy, unspecified, not intractable, without status epilepticus; J45.30 Mild persistent asthma, uncomplicated; Z87.891 Personal history of nicotine dependence; Z98.84 Bariatric surgery status; Z79.899 Other long term (current) drug therapy; Z88.0 Allergy status to penicillin ==

== ENCOUNTER → 2021-08-24 | Outpatient (REF) | payer OTHER ==
[2021-08-24 12:59] LABS: BASO % 0.3 % (0.0-1.0); EOS % 0.5 % (0.0-3.0); HEMATOCRIT 38.1 % (36.0-47.0); HEMOGLOBIN 12.3 g/dl (12.0-15.5); LYMPH % 26.6 % (24.0-44.0); MEAN CORPUSCULAR HEMOGLOBIN 31.3 pg (27.0-33.0); MEAN CORPUSCULAR HGB CONC 32.3 g/dl (32.0-36.5); MEAN CORPUSCULAR VOLUME 96.9 fl (80.0-96.0); MONO # 0.5 10^3/uL (0.0-0.8); NEUTROPHILS # 2.2 10^3/uL (1.5-8.5); NEUTROPHILS % 59.3 % (36.0-66.0); PLATELET COUNT, AUTOMATED 186 10^3/uL (150-450); RED BLOOD COUNT 3.93 10^6/uL (4.00-5.40); WHITE BLOOD COUNT 3.7 10^3/uL (4.0-10.0)
[2021-08-24 13:08] LABS: APPEARANCE, URINE CLEAR (CLEAR); BACTERIA, URINE AUTO NEGATIVE (NEGATIVE); BILIRUBIN, URINE AUTO NEGATIVE (NEGATIVE); BLOOD, URINE BLOOD NEGATIVE (NEGATIVE); COLOR, URINE YELLOW (YELLOW); GLUCOSE, URINE (UA) AUTO NEGATIVE (NEGATIVE); KETONE, URINE AUTO NEGATIVE (NEGATIVE); LEUKOCYTE ESTERASE, URINE AUTO NEGATIVE (NEGATIVE); NITRITE, URINE AUTO NEGATIVE (NEGATIVE); PROTEIN, URINE AUTO NEGATIVE (NEGATIVE); RBC, URINE AUTO 0 /HPF (0-3); SPECIFIC GRAVITY URINE AUTO 1.009 (1.002-1.035); SQUAMOUS EPITHELIAL CELL UR AU 0 /HPF (0-6); UROBILINOGEN, URINE AUTO 0.2 mg/dL (0.0-2.0); WBC, URINE AUTO 1 /HPF (0-3)
[2021-08-24 13:36] LABS: ERYTHROCYTE SEDIMENTATION RATE 45 mm/hr (0-30)
[2021-08-24 14:44] LABS: ALBUMIN 3.3 GM/DL (3.2-5.2); ALT/SGPT 21 U/L (12-78); BILIRUBIN,TOTAL 0.3 MG/DL (0.2-1.0); BLOOD UREA NITROGEN 9 MG/DL (7-18); C REACTIVE PROTEIN QUANTITATIV 0.35 MG/DL (0.00-0.30); CALCIUM LEVEL 9.7 MG/DL (8.5-10.1); CARBON DIOXIDE LEVEL 26 MEQ/L (21-32); CHLORIDE LEVEL 110 MEQ/L (98-107); COMPLEMENT C3 99 MG/DL (90-180); COMPLEMENT C4 34 MG/DL (10-40); GLOMERULAR FILTRATION RATE > 60.0 (>51); GLUCOSE, FASTING 92 MG/DL (70-100); POTASSIUM SERUM 4.3 MEQ/L (3.5-5.1); SODIUM LEVEL 142 MEQ/L (136-145); TOTAL PROTEIN 7.9 GM/DL (6.4-8.2)
[2021-08-24 14:49] LABS: TOTAL PROTEIN,RANDOM URINE 25.4 MG/DL (0.0-12.0)
== END ==
LOC: M SFHCRHEU 10:59
PROVIDERS: ATTEND Internal Medicine Rheumatology
DX: L93.0 Discoid lupus erythematosus (principal); M35.01 Sjogren syndrome with keratoconjunctivitis; M32.19 Other organ or system involvement in systemic lupus erythematosus

== ENCOUNTER → 2021-09-24 | Outpatient (CLI) | payer OTHER | LOC: M RAD 07:49 | PROVIDERS: ATTEND Physician Assistant | DX: K80.20 Calculus of gallbladder without cholecystitis without obstruction (principal) ==

== ENCOUNTER → 2021-09-25 | Outpatient (CLI) | payer OTHER ==
[2021-09-25 11:32] LABS: CHOLESTEROL RISK RATIO 1.51 (<5)
== END ==
LOC: M PLALAB 08:07
PROVIDERS: ATTEND Physician Assistant
DX: E78.5 Hyperlipidemia, unspecified (principal)

== ENCOUNTER 2021-12-03 11:18 | Emergency (ER) | payer OTHER ==
[~2021-12-03] VITALS: Ht 162.6 cm; Wt 69.5 kg
[2021-12-03 11:18] VITALS: BP 177/81
== END 2021-12-03 14:31 | disposition left against medical advice (07) ==
LOC: M ED 11:18
DX: Z53.21 Procedure and treatment not carried out due to patient leaving prior to being seen by health care provider (principal)

== ENCOUNTER → 2022-01-14 | Outpatient (CLI) | payer OTHER ==
[2022-01-14 15:20] LABS: APPEARANCE, URINE MANUAL CLEAR (CLEAR); COLOR, URINE MANUAL YELLOW (YELLOW)
[2022-01-14 15:21] LABS: BILIRUBIN, URINE MANUAL NEGATIVE (NEGATIVE); BLOOD URINE MANUAL NEGATIVE (NEGATIVE); GLUCOSE, URINE (UA) MANUAL NEGATIVE (NEGATIVE); KETONE, URINE MANUAL NEGATIVE (NEGATIVE); LEUKOCYTE ESTERASE, URINE MAN NEGATIVE (NEGATIVE); NITRITE, URINE MANUAL NEGATIVE (NEGATIVE); PROTEIN, URINE MANUAL NEGATIVE (NEGATIVE); SPECIFIC GRAVITY,URINE MANUAL 1.005 (1.002-1.035); UROBILINOGEN, URINE MANUAL NORMAL (NORMAL)
[2022-01-14 15:33] LABS: HEMATOCRIT 35.8 % (36.0-47.0); HEMOGLOBIN 11.3 g/dl (12.0-15.5); MEAN CORPUSCULAR HEMOGLOBIN 31.1 pg (27.0-33.0); MEAN CORPUSCULAR HGB CONC 31.6 g/dl (32.0-36.5); MEAN CORPUSCULAR VOLUME 98.6 fl (80.0-96.0); PLATELET COUNT, AUTOMATED 184 10^3/uL (150-450); RED BLOOD COUNT 3.63 10^6/uL (4.00-5.40); WHITE BLOOD COUNT 3.5 10^3/uL (4.0-10.0)
[2022-01-14 16:04] LABS: CREATININE,RANDOM URINE 25.8 MG/DL; TOTAL PROTEIN,RANDOM URINE 8.1 MG/DL (0.0-14.0)
[2022-01-14 16:06] LABS: EOSINOPHILS 1 % (0-3); LYMPHOCYTES 43 % (16-44); MONOCYTES 13 % (0-5); NEUTROPHILS 43 % (28-66); PLATELET ESTIMATE NORMAL (NORMAL)
[2022-01-14 19:02] LABS: ALBUMIN 3.1 G/DL (3.2-5.2); ALT/SGPT 22 U/L (7.0-40); BILIRUBIN,TOTAL 0.2 MG/DL (0.3-1.2); BLOOD UREA NITROGEN 14 MG/DL (9-23); CALCIUM LEVEL 9.4 MG/DL (8.5-10.1); CARBON DIOXIDE LEVEL 28 MMOL/L (20-31); CHLORIDE LEVEL 105 MMOL/L (98-107); COMPLEMENT C3 91.3 MG/DL (90.0-170.0); COMPLEMENT C4 30.6 MG/DL (12-36); CREATININE FOR GFR 0.69 MG/DL (0.55-1.30); GLOMERULAR FILTRATION RATE > 60.0 (>51); GLUCOSE, FASTING 71 MG/DL (60-100); POTASSIUM SERUM 4.3 MMOL/L (3.5-5.1); SODIUM LEVEL 141 MMOL/L (136-145); TOTAL PROTEIN 7.2 G/DL (5.7-8.2)
[2022-01-14 20:14] LABS: ERYTHROCYTE SEDIMENTATION RATE 57 mm/hr (0-30)
== END ==
LOC: M PLALAB 13:45
PROVIDERS: ATTEND Internal Medicine Rheumatology
DX: L93.0 Discoid lupus erythematosus (principal); M35.01 Sjogren syndrome with keratoconjunctivitis; Z79.899 Other long term (current) drug therapy

== ENCOUNTER → 2022-02-08 | Outpatient (CLI) | payer OTHER | LOC: M PAIN 09:15 | PROVIDERS: ATTEND Nurse Practitioner Family | DX: M51.16 Intervertebral disc disorders with radiculopathy, lumbar region (principal); G89.29 Other chronic pain; I10 Essential (primary) hypertension; G40.909 Epilepsy, unspecified, not intractable, without status epilepticus; J45.30 Mild persistent asthma, uncomplicated; Z86.59 Personal history of other mental and behavioral disorders; Z98.84 Bariatric surgery status; Z87.891 Personal history of nicotine dependence; Z88.0 Allergy status to penicillin; Z79.899 Other long term (current) drug therapy ==

== ENCOUNTER 2022-03-28 12:15 | Inpatient (IN) | payer OTHER ==
[~2022-03-28] VITALS: Ht 162.6 cm; Wt 71.9 kg
[2022-03-28] MEDS ORDERED: NS 1,000 ML IV ONE ×2 (12:25→20:45)
[2022-03-28] MEDS ORDERED: ACETAMINOPHEN 325 MG TAB PO ONE (12:25)
[2022-03-28] MEDS ORDERED: NALOXONE INJ 0.4MG/1ML VIAL IV STA (12:44)
[2022-03-28] MEDS ORDERED: ACETAMINOPHEN 650MG SUPP PR ONE (12:45)
[2022-03-28 13:30] LABS: HEMATOCRIT 40.7 % (36.0-47.0); HEMOGLOBIN 13.4 g/dl (12.0-15.5); LYMPH # 0.3 10^3/uL (1.5-5.0); MEAN CORPUSCULAR HEMOGLOBIN 31.4 pg (27.0-33.0); MEAN CORPUSCULAR HGB CONC 32.9 g/dl (32.0-36.5); MEAN CORPUSCULAR VOLUME 95.3 fl (80.0-96.0); MONO # 0.1 10^3/uL (0.0-0.8); MONO % 1.5 % (2.0-8.0); NEUTROPHILS # 4.8 10^3/uL (1.5-8.5); NEUTROPHILS % 92.7 % (36.0-66.0); PLATELET COUNT, AUTOMATED 155 10^3/uL (150-450); RED BLOOD COUNT 4.27 10^6/uL (4.00-5.40); WHITE BLOOD COUNT 5.2 10^3/uL (4.0-10.0)
[2022-03-28 13:38] LABS: INR 0.88; PARTIAL THROMBOPLASTIN TIME 25.8 SECONDS (24.8-34.2); PROTHROMBIN TIME 12.1 SECONDS (12.5-14.5)
[2022-03-28 13:51] LABS: ALKALINE PHOSPHATASE 236 U/L (46-116); ALT/SGPT 168 U/L (7.0-40); AMYLASE 100 U/L (30-118); AST/SGOT 465 U/L (<34); BILIRUBIN,DIRECT 0.6 MG/DL (<0.4); BLOOD UREA NITROGEN 14 MG/DL (9-23); CALCIUM LEVEL 8.3 MG/DL (8.5-10.1); CARBON DIOXIDE LEVEL 22 MMOL/L (20-31); CHLORIDE LEVEL 105 MMOL/L (98-107); CK-MB VALUE MASS < 1.0 NG/ML (<3.6); CREATININE FOR GFR 0.84 MG/DL (0.55-1.30); GLOMERULAR FILTRATION RATE > 60.0 (>51); GLUCOSE, FASTING 139 MG/DL (60-100); POTASSIUM SERUM 4.4 MMOL/L (3.5-5.1); SODIUM LEVEL 137 MMOL/L (136-145); TOTAL PROTEIN 7.7 G/DL (5.7-8.2)
[2022-03-28 13:53] LABS: CPK CREATINE PHOSPHOKINASE 58 U/L (34-145); MB/CK RELATIVE INDEX 1.72 (< OR =4)
[2022-03-28] MEDS ORDERED: LevoFLOXacin IV 750 MG in IV 1 EA IV ONE (13:55)
[2022-03-28 13:57] LABS: RSV AMPLIFICATION NEGATIVE (NEGATIVE)
[2022-03-28 14:09] LABS: ABG BASE EXCESS -3.2 (-2.0-2.0); ABG HCO3 18.9 MEQ/L (22.0-26.0); ABG O2 SATURATION 97.1 % (95.0-99.0); ABG PARTIAL PRESSURE CO2 26.5 mmHg (35.0-45.0); ABG STANDARD HCO3 21.8 MEQ/L (22.0-26.0); ABG TOTAL CO2 19.8 MEQ/L (22.0-29.0); ABG pH (ARTERIAL) 7.472 UNITS (7.350-7.450)
[2022-03-28] MEDS ORDERED: NS IV ONE (14:35)
[2022-03-28] MEDS ORDERED: LIDOCAINE 2% 5ML JELLY UROJET TOP ONE (15:40)
[2022-03-28] MEDS ORDERED: ASPIRIN 300 MG SUPP PR STA (16:04)
[2022-03-28] MEDS ORDERED: ACETAMINOPHEN 325MG SUPP PR ONE (16:05)
[2022-03-28 16:25] LABS: APPEARANCE, URINE MANUAL CLEAR (CLEAR); BILIRUBIN, URINE MANUAL NEGATIVE (NEGATIVE); BLOOD URINE MANUAL TRACE (NEGATIVE); COLOR, URINE MANUAL YELLOW (YELLOW); GLUCOSE, URINE (UA) MANUAL NEGATIVE (NEGATIVE); KETONE, URINE MANUAL NEGATIVE (NEGATIVE); LEUKOCYTE ESTERASE, URINE MAN NEGATIVE (NEGATIVE); NITRITE, URINE MANUAL NEGATIVE (NEGATIVE); PROTEIN, URINE MANUAL TRACE mg/dL (NEGATIVE); SPECIFIC GRAVITY,URINE MANUAL 1.015 (1.002-1.035); UROBILINOGEN, URINE MANUAL 1 MG mg/dl (NORMAL)
[2022-03-28] MEDS ORDERED: metroNIDAZOLE 500 MG in IV 1 EA IV ONE (16:30)
[2022-03-28 16:32] LABS: BACTERIA, URINE NONE SEEN; HYALINE CAST, URINE NONE SEEN /lpf (0-1); MUCUS, URINE LARGE AMOUNT (NEGATIVE); SQUAMOUS EPITHELIAL CELL URINE SMALL AMOUNT /hpf (SMALL AMT); WBC, URINE 0-1 /hpf (0-3)
[2022-03-28] MEDS ORDERED: ISOVUE-370 76% 100ML VIAL As Ordered ONE (16:49)
[2022-03-28 17:39] LABS: AMPHETAMINES LEVEL URINE NEGATIVE (NEGATIVE); BARBITURATES URINE NEGATIVE (NEGATIVE); BENZODIAZEPINES URINE NEGATIVE (NEGATIVE); CANNABINOIDS URINE NEGATIVE (NEGATIVE); COCAINE METABOLITE URINE NEGATIVE (NEGATIVE); METHADONE URINE NEGATIVE (NEGATIVE); OPIATES URINE NEGATIVE (NEGATIVE); PHENCYCLIDINE URINE NEGATIVE (NEGATIVE)
[2022-03-28] MEDS ORDERED: DOXE50CA PO (19:29)
[2022-03-28] MEDS ORDERED: LEVE250T5 PO (19:29)
[2022-03-28] MEDS ORDERED: GABA800T4 PO (19:31)
[2022-03-28] MEDS ORDERED: OXYC-1 PO (19:31)
[2022-03-28] MEDS ORDERED: HYDR200T3 PO (19:31)
[2022-03-28] MEDS ORDERED: MED REC COMMENT (19:32)
[2022-03-28] MEDS ORDERED: HOME MED LIST COMPLETE! XX SCH (19:35)
[2022-03-28] MEDS: NS 1,000 ML IV SCH (21:40)
[2022-03-28] MEDS: GABAPENTIN 400MG CAP PO SCH (21:40)
[2022-03-28] MEDS ORDERED: levETIRAcetam INJection 250 MG in D5W 100 ML IV ONE (23:00)
[2022-03-28] MEDS: DOXEPIN 25 MG CAP PO SCH (23:48)
[2022-03-29] MEDS: metroNIDAZOLE 500 MG in IV 1 EA IV SCH ×3 (00:49→17:43)
[2022-03-29] MEDS: oxyCODONE 5MG TAB PO PRN ×3 (00:51→16:37)
[2022-03-29] MEDS ORDERED: LABETALOL 100MG/20ML VIAL IV ONE (02:00)
[2022-03-29 04:07] VITALS: BP 145/72
[2022-03-29 05:39] LABS: BASO % 0.1 % (0.0-1.0); HEMATOCRIT 37.2 % (36.0-47.0); HEMOGLOBIN 12.2 g/dl (12.0-15.5); LYMPH # 0.4 10^3/uL (1.5-5.0); LYMPH % 3.9 % (24.0-44.0); MEAN CORPUSCULAR HGB CONC 32.8 g/dl (32.0-36.5); MEAN CORPUSCULAR VOLUME 94.4 fl (80.0-96.0); MONO # 0.6 10^3/uL (0.0-0.8); MONO % 5.2 % (2.0-8.0); NEUTROPHILS # 9.9 10^3/uL (1.5-8.5); NEUTROPHILS % 90.3 % (36.0-66.0); PLATELET COUNT, AUTOMATED 141 10^3/uL (150-450); RED BLOOD COUNT 3.94 10^6/uL (4.00-5.40)
[2022-03-29 05:42] LABS: HEMOGLOBIN A1c 5.4 % (4.0-6.0)
[2022-03-29 05:56] LABS: ALBUMIN 2.4 G/DL (3.2-5.2); ALKALINE PHOSPHATASE 180 U/L (46-116); ALT/SGPT 195 U/L (7.0-40); AST/SGOT 290 U/L (<34); BILIRUBIN,TOTAL 1.9 MG/DL (0.3-1.2); BLOOD UREA NITROGEN 13 MG/DL (9-23); CALCIUM LEVEL 7.5 MG/DL (8.5-10.1); CARBON DIOXIDE LEVEL 21 MMOL/L (20-31); CHLORIDE LEVEL 111 MMOL/L (98-107); CREATININE FOR GFR 0.78 MG/DL (0.55-1.30); GLOMERULAR FILTRATION RATE > 60.0 (>51); GLUCOSE, FASTING 81 MG/DL (60-100); MAGNESIUM LEVEL 1.5 MG/DL (1.8-2.4); POTASSIUM SERUM 3.4 MMOL/L (3.5-5.1); SODIUM LEVEL 140 MMOL/L (136-145); TOTAL PROTEIN 6.2 G/DL (5.7-8.2)
[2022-03-29] MEDS ORDERED: MAG SULF 1GM/100ML (MAG RUN) 1 GM in IV 1 EA IV SCH (07:15)
[2022-03-29] MEDS: MAG SULF 1GM/100ML (MAG RUN) 1 GM in IV 1 EA IV SCH ×2 (07:41→09:41)
[2022-03-29] MEDS ORDERED: POTASSIUM CHLORIDE 10MEQ SR TABLET PO ONE (08:00)
[2022-03-29 08:13] VITALS: BP 142/88
[2022-03-29] MEDS: HYDROXYCHLOROQUINE 200 MG TAB PO SCH ×2 (09:00→20:32)
[2022-03-29] MEDS ORDERED: levETIRAcetam INJection 250 MG in D5W MINI-BAG PLUS 100 ML IV SCH (09:00)
[2022-03-29] MEDS: FOLIC ACID 1MG TAB PO SCH (09:41)
[2022-03-29] MEDS: FAMOTIDINE 20 MG TAB PO SCH (09:41)
[2022-03-29] MEDS: GABAPENTIN 400MG CAP PO SCH ×2 (09:42→20:32)
[2022-03-29] MEDS: VITAMIN D 1,000 INTERNATIONAL UNITS TABLET PO SCH (09:42)
[2022-03-29 10:13] LABS: BILIRUBIN,DIRECT 1.4 MG/DL (<0.4)
[2022-03-29] MEDS ORDERED: LORazepam 2 MG/ML VIAL IV PRN (10:35)
[2022-03-29] MEDS ORDERED: ONDANSETRON 4MG 2ML VIAL IV PRN (10:45)
[2022-03-29] MEDS: MORPHINE 2 MG/ML 1ML VIAL IV PRN (11:28)
[2022-03-29 12:25] VITALS: BP 148/84
[2022-03-29] MEDS ORDERED: ACETAMINOPHEN TAB 650MG DOSE (2X325MG) PO PRN (13:10)
[2022-03-29] MEDS ORDERED: LevoFLOXacin IV 750 MG in IV 1 EA IV SCH (15:00)
[2022-03-29] MEDS: NS 1,000 ML IV SCH ×2 (16:04→22:00)
[2022-03-29 16:14] VITALS: BP 138/74
[2022-03-29] MEDS ORDERED: PROHANCE 279.3MG/ML 15ML VIAL As Ordered ONE (18:07)
[2022-03-29 20:32] VITALS: BP 177/80
[2022-03-29] MEDS: DOXEPIN 25 MG CAP PO SCH ×2 (20:32→20:36)
[2022-03-29] MEDS ORDERED: DOXEPIN 25 MG CAP PO SCH (21:00)
[2022-03-29] MEDS: levETIRAcetam INJection 250 MG in D5W 100 ML IV SCH (22:00)
[2022-03-29] MEDS: HEPARIN SOD (PORCINE) 5000UNITS/ML 1ML VIAL/SYRINGE SQ SCH (22:02)
[2022-03-30] VITALS (11 sets, daily range): BP systolic 114–186; BP diastolic 68–98
[2022-03-30] MEDS: metroNIDAZOLE 500 MG in IV 1 EA IV SCH ×2 (00:22→09:53)
[2022-03-30] MEDS ORDERED: hydrALAZINE 20MG/ML 1ML VIAL IV ONE (01:10)
[2022-03-30 04:44] LABS: BASO % 0.2 % (0.0-1.0); EOS % 0.2 % (0.0-3.0); HEMATOCRIT 38.2 % (36.0-47.0); HEMOGLOBIN 12.4 g/dl (12.0-15.5); LYMPH # 0.6 10^3/uL (1.5-5.0); LYMPH % 10.7 % (24.0-44.0); MEAN CORPUSCULAR HEMOGLOBIN 30.4 pg (27.0-33.0); MEAN CORPUSCULAR HGB CONC 32.5 g/dl (32.0-36.5); MEAN CORPUSCULAR VOLUME 93.6 fl (80.0-96.0); MONO # 0.4 10^3/uL (0.0-0.8); MONO % 7.4 % (2.0-8.0); NEUTROPHILS # 4.2 10^3/uL (1.5-8.5); NEUTROPHILS % 81.3 % (36.0-66.0); PLATELET COUNT, AUTOMATED 141 10^3/uL (150-450); RED BLOOD COUNT 4.08 10^6/uL (4.00-5.40); WHITE BLOOD COUNT 5.1 10^3/uL (4.0-10.0)
[2022-03-30] MEDS: HEPARIN SOD (PORCINE) 5000UNITS/ML 1ML VIAL/SYRINGE SQ SCH ×3 (05:02→21:09)
[2022-03-30 05:17] LABS: ALBUMIN 2.4 G/DL (3.2-5.2); ALKALINE PHOSPHATASE 172 U/L (46-116); ALT/SGPT 129 U/L (7.0-40); AST/SGOT 144 U/L (<34); BILIRUBIN,TOTAL 0.9 MG/DL (0.3-1.2); BLOOD UREA NITROGEN 12 MG/DL (9-23); CARBON DIOXIDE LEVEL 20 MMOL/L (20-31); CHLORIDE LEVEL 107 MMOL/L (98-107); CREATININE FOR GFR 0.79 MG/DL (0.55-1.30); GLOMERULAR FILTRATION RATE > 60.0 (>51); GLUCOSE, FASTING 72 MG/DL (60-100); MAGNESIUM LEVEL 1.7 MG/DL (1.8-2.4); POTASSIUM SERUM 3.8 MMOL/L (3.5-5.1); SODIUM LEVEL 136 MMOL/L (136-145); TOTAL PROTEIN 6.6 G/DL (5.7-8.2)
[2022-03-30] MEDS ORDERED: MAG SULF 1GM/100ML (MAG RUN) 1 GM in IV 1 EA IV ONE (07:15)
[2022-03-30] MEDS: oxyCODONE 5MG TAB PO PRN ×3 (07:59→21:10)
[2022-03-30] MEDS: VITAMIN D 1,000 INTERNATIONAL UNITS TABLET PO SCH (09:17)
[2022-03-30] MEDS: FOLIC ACID 1MG TAB PO SCH (09:17)
[2022-03-30] MEDS: levETIRAcetam INJection 250 MG in D5W 100 ML IV SCH (09:17)
[2022-03-30] MEDS: GABAPENTIN 400MG CAP PO SCH ×2 (09:18→21:09)
[2022-03-30] MEDS: HYDROXYCHLOROQUINE 200 MG TAB PO SCH ×2 (09:18→21:09)
[2022-03-30] MEDS: FAMOTIDINE 20 MG TAB PO SCH (09:18)
[2022-03-30] MEDS ORDERED: ONDANSETRON 4MG ORAL DISINTEGRATING TAB PO PRN (10:40)
[2022-03-30] MEDS: CEFDINIR 300 MG CAP (OMNICEF) PO SCH ×2 (12:10→21:11)
[2022-03-30] MEDS: NS 1,000 ML IV SCH (14:42)
[2022-03-30] MEDS: metroNIDAZOLE (FLAGYL) 500MG TABLET PO SCH ×2 (16:58→21:09)
[2022-03-30] MEDS: MORPHINE 2 MG/ML 1ML VIAL IV PRN (17:09)
[2022-03-30] MEDS ORDERED: GLUCOSE 4GM CHEW TABLET PO PRN (18:30)
[2022-03-30] MEDS ORDERED: GLUCAGON INJ 1MG VIAL SC PRN (18:30)
[2022-03-30] MEDS ORDERED: DEXTROSE 50% 50ML SYRINGE IV PRN (18:30)
[2022-03-30] MEDS: INSULIN LISPRO (NovoLOG) PER UNIT SC SCH (18:40)
[2022-03-30] MEDS ORDERED: INSULIN LISPRO (NovoLOG) PER UNIT SC SCH (21:00)
[2022-03-30] MEDS: levETIRAcetam 250MG TABLET (KEPPRA) PO SCH (21:09)
[2022-03-30] MEDS: DOXEPIN 25 MG CAP PO SCH (21:09)
[2022-03-31 04:00] VITALS: BP 138/70
[2022-03-31 05:08] LABS: BASO % 0.4 % (0.0-1.0); EOS % 0.4 % (0.0-3.0); HEMATOCRIT 37.8 % (36.0-47.0); HEMOGLOBIN 12.4 g/dl (12.0-15.5); LYMPH # 0.8 10^3/uL (1.5-5.0); LYMPH % 33.1 % (24.0-44.0); MEAN CORPUSCULAR HEMOGLOBIN 30.8 pg (27.0-33.0); MEAN CORPUSCULAR HGB CONC 32.8 g/dl (32.0-36.5); MONO # 0.3 10^3/uL (0.0-0.8); MONO % 10.8 % (2.0-8.0); NEUTROPHILS # 1.4 10^3/uL (1.5-8.5); NEUTROPHILS % 54.5 % (36.0-66.0); PLATELET COUNT, AUTOMATED 155 10^3/uL (150-450); RED BLOOD COUNT 4.02 10^6/uL (4.00-5.40); WHITE BLOOD COUNT 2.5 10^3/uL (4.0-10.0)
[2022-03-31] MEDS: HEPARIN SOD (PORCINE) 5000UNITS/ML 1ML VIAL/SYRINGE SQ SCH (05:11)
[2022-03-31] MEDS: oxyCODONE 5MG TAB PO PRN ×2 (05:12→13:03)
[2022-03-31] MEDS: NS 1,000 ML IV SCH (05:13)
[2022-03-31 05:38] LABS: ALBUMIN 2.5 G/DL (3.2-5.2); ALKALINE PHOSPHATASE 223 U/L (46-116); ALT/SGPT 93 U/L (7.0-40); AST/SGOT 123 U/L (<34); BILIRUBIN,TOTAL 0.7 MG/DL (0.3-1.2); BLOOD UREA NITROGEN 8 MG/DL (9-23); CALCIUM LEVEL 7.9 MG/DL (8.5-10.1); CARBON DIOXIDE LEVEL 21 MMOL/L (20-31); CHLORIDE LEVEL 110 MMOL/L (98-107); CREATININE FOR GFR 0.74 MG/DL (0.55-1.30); GLOMERULAR FILTRATION RATE > 60.0 (>51); GLUCOSE, FASTING 82 MG/DL (60-100); MAGNESIUM LEVEL 1.7 MG/DL (1.8-2.4); POTASSIUM SERUM 3.9 MMOL/L (3.5-5.1); SODIUM LEVEL 138 MMOL/L (136-145); TOTAL PROTEIN 6.8 G/DL (5.7-8.2)
[2022-03-31] MEDS: INSULIN LISPRO (NovoLOG) PER UNIT SC SCH ×2 (07:30→12:00)
[2022-03-31 07:52] VITALS: BP 143/73
[2022-03-31 08:00] VITALS: BP 142/70
[2022-03-31] MEDS: MORPHINE 2 MG/ML 1ML VIAL IV PRN (08:22)
[2022-03-31] MEDS: FAMOTIDINE 20 MG TAB PO SCH (08:22)
[2022-03-31] MEDS: levETIRAcetam 250MG TABLET (KEPPRA) PO SCH (08:23)
[2022-03-31] MEDS: HYDROXYCHLOROQUINE 200 MG TAB PO SCH (08:23)
[2022-03-31] MEDS: GABAPENTIN 400MG CAP PO SCH (08:23)
[2022-03-31] MEDS: VITAMIN D 1,000 INTERNATIONAL UNITS TABLET PO SCH (08:24)
[2022-03-31] MEDS: FOLIC ACID 1MG TAB PO SCH (08:24)
[2022-03-31] MEDS: metroNIDAZOLE (FLAGYL) 500MG TABLET PO SCH (08:24)
[2022-03-31] MEDS ORDERED: MAG SULF 1GM/100ML (MAG RUN) 1 GM in IV 1 EA IV ONE (09:00)
[2022-03-31] MEDS: CEFDINIR 300 MG CAP (OMNICEF) PO SCH (10:43)
[2022-03-31] MEDS ORDERED: MAGNESIUM OXIDE 400MG TAB (MAG-OX) PO ONE (11:25)
[2022-03-31] MEDS ORDERED: CEFD300CAP PO (11:33)
[2022-03-31] MEDS ORDERED: METR-265 PO (11:33)
[2022-03-31 12:00] VITALS: BP 152/78
[2022-04-04] MEDS ORDERED: METHOTREXATE 2.5 MG TAB (J8610 PER 2.5MG) PO SCH (09:00)
== END 2022-03-31 13:45 | disposition home or self-care (01) | DRG 720 ==
LOC: M ED 12:15 → EDBD 12:15 → M ED INP 19:26 → M PCU 03-29 03:50
PROVIDERS: ADMIT Family Medicine; ATTEND Family Medicine
PROC: B246ZZZ Ultrasonography of Right and Left Heart (ICD-10-PCS; principal; 2022-03-29)
DX: A41.51 Sepsis due to Escherichia coli [E. coli] (principal); G93.41 Metabolic encephalopathy; E87.20 Acidosis, unspecified; K83.09 Other cholangitis; E11.42 Type 2 diabetes mellitus with diabetic polyneuropathy; M32.9 Systemic lupus erythematosus, unspecified; E83.42 Hypomagnesemia; K81.9 Cholecystitis, unspecified; B96.20 Unspecified Escherichia coli [E. coli] as the cause of diseases classified elsewhere; G40.909 Epilepsy, unspecified, not intractable, without status epilepticus; R74.01 Elevation of levels of liver transaminase levels; K21.9 Gastro-esophageal reflux disease without esophagitis; M19.90 Unspecified osteoarthritis, unspecified site; F32.A Depression, unspecified; E87.6 Hypokalemia; I10 Essential (primary) hypertension; M54.9 Dorsalgia, unspecified; G89.29 Other chronic pain; Z98.84 Bariatric surgery status; Z90.79 Acquired absence of other genital organ(s); Z88.0 Allergy status to penicillin; Z88.8 Allergy status to other drugs, medicaments and biological substances; Z20.822 Contact with and (suspected) exposure to COVID-19

== ENCOUNTER 2022-04-26 13:03 | Inpatient (IN) | payer OTHER ==
[~2022-04-26] VITALS: Ht 162.6 cm; Wt 69.1 kg
[~2022-04-26 13:03] MED LIST changes: +CEFD300CAP PO; +DOXE50CA PO; +MED REC COMMENT; +METR-265 PO; +OXYC-1 PO
[2022-04-26] MEDS ORDERED: PRED10TA2 PO (13:59)
[2022-04-26] MEDS ORDERED: HYDR-3363 PO (13:59)
[2022-04-26] MEDS ORDERED: ACETAMINOPHEN 325 MG TAB PO ONE (14:15)
[2022-04-26] MEDS ORDERED: ONDANSETRON 4MG 2ML VIAL IV ONE (15:25)
[2022-04-26] MEDS ORDERED: MORPHINE 4 MG/ML 1ML VIAL IV PRN (15:25)
[2022-04-26 16:10] LABS: HEMATOCRIT 38.4 % (36.0-47.0); HEMOGLOBIN 12.7 g/dl (12.0-15.5); MEAN CORPUSCULAR HGB CONC 33.1 g/dl (32.0-36.5); MEAN CORPUSCULAR VOLUME 93.7 fl (80.0-96.0); PLATELET COUNT, AUTOMATED 207 10^3/uL (150-450); WHITE BLOOD COUNT 6.8 10^3/uL (4.0-10.0)
[2022-04-26] MEDS ORDERED: LABETALOL 100MG TAB PO ONE (16:40)
[2022-04-26 16:51] LABS: RSV AMPLIFICATION NEGATIVE (NEGATIVE)
[2022-04-26 16:57] LABS: BLOOD UREA NITROGEN 14 MG/DL (9-23); CALCIUM LEVEL 8.6 MG/DL (8.5-10.1); CARBON DIOXIDE LEVEL 27 MMOL/L (20-31); CHLORIDE LEVEL 103 MMOL/L (98-107); CREATININE FOR GFR 0.71 MG/DL (0.55-1.30); GLOMERULAR FILTRATION RATE > 60.0 (>51); GLUCOSE, FASTING 127 MG/DL (60-100); POTASSIUM SERUM 4.7 MMOL/L (3.5-5.1); SODIUM LEVEL 137 MMOL/L (136-145)
[2022-04-26] MEDS ORDERED: ONDANSETRON 4MG 2ML VIAL IV SCH (17:15)
[2022-04-26] MEDS ORDERED: hydrALAZINE 20MG/ML 1ML VIAL IV PRN (17:15)
[2022-04-26] MEDS ORDERED: CYCLOBENZAPRINE 5MG TABLET PO PRN (17:15)
[2022-04-26] MEDS ORDERED: ONDANSETRON 4MG 2ML VIAL IV PRN (17:30)
[2022-04-26] MEDS ORDERED: OXYC-1 PO (17:55)
[2022-04-26] MEDS ORDERED: B-12100020 PO (17:55)
[2022-04-26] MEDS ORDERED: ACIT1CAP PO (17:55)
[2022-04-26] MEDS ORDERED: LISI20TA33 PO (17:55)
[2022-04-26] MEDS ORDERED: CEFD300C41 PO (17:55)
[2022-04-26] MEDS ORDERED: ACETAMINOPHEN TAB 650MG DOSE (2X325MG) PO SCH (18:00)
[2022-04-26] MEDS ORDERED: LORazepam 2 MG/ML 1ML VIAL IV PRN (18:00)
[2022-04-26] MEDS: ACETAMINOPHEN TAB 650MG DOSE (2X325MG) PO SCH ×2 (18:20→23:36)
[2022-04-26] MEDS ORDERED: BENL200I SC (19:05)
[2022-04-26] MEDS ORDERED: HOME MED LIST COMPLETE! XX SCH (19:10)
[2022-04-26] MEDS ORDERED: TRIA1OI TOP (19:10)
[2022-04-26] MEDS: MORPHINE 4 MG/ML 1ML VIAL IV PRN (19:27)
[2022-04-26 20:21] VITALS: BP 132/82
[2022-04-26] MEDS ORDERED: ENOXAPARIN 40MG/0.4ML SYRINGE (J1650 PER 10MG) SC SCH (21:00)
[2022-04-26] MEDS ORDERED: DOXEPIN 25 MG CAP PO SCH ×2 (21:00)
[2022-04-26] MEDS: levETIRAcetam 250MG TABLET (KEPPRA) PO SCH (21:43)
[2022-04-26] MEDS: HYDROXYCHLOROQUINE 200 MG TAB PO SCH (21:43)
[2022-04-26] MEDS: GABAPENTIN 400MG CAP PO SCH (21:43)
[2022-04-26] MEDS: PERCOCET 5MG/325MG TAB PO PRN (21:51)
[2022-04-27] MEDS: MORPHINE 4 MG/ML 1ML VIAL IV PRN ×3 (02:03→11:28)
[2022-04-27] MEDS: PERCOCET 5MG/325MG TAB PO PRN ×2 (03:56→08:23)
[2022-04-27 04:07] VITALS: BP 172/90
[2022-04-27 05:19] VITALS: BP 148/75
[2022-04-27] MEDS: ACETAMINOPHEN TAB 650MG DOSE (2X325MG) PO SCH ×2 (06:05→11:26)
[2022-04-27 06:40] LABS: BASO % 0.2 % (0.0-1.0); EOS % 0.2 % (0.0-3.0); HEMATOCRIT 35.2 % (36.0-47.0); HEMOGLOBIN 11.6 g/dl (12.0-15.5); LYMPH # 1.3 10^3/uL (1.5-5.0); LYMPH % 28.9 % (24.0-44.0); MEAN CORPUSCULAR HEMOGLOBIN 31.2 pg (27.0-33.0); MEAN CORPUSCULAR VOLUME 94.6 fl (80.0-96.0); MONO # 0.6 10^3/uL (0.0-0.8); MONO % 13.7 % (2.0-8.0); NEUTROPHILS # 2.6 10^3/uL (1.5-8.5); NEUTROPHILS % 56.6 % (36.0-66.0); PLATELET COUNT, AUTOMATED 183 10^3/uL (150-450); RED BLOOD COUNT 3.72 10^6/uL (4.00-5.40); WHITE BLOOD COUNT 4.5 10^3/uL (4.0-10.0)
[2022-04-27 07:05] LABS: BLOOD UREA NITROGEN 16 MG/DL (9-23); CALCIUM LEVEL 8.6 MG/DL (8.5-10.1); CARBON DIOXIDE LEVEL 27 MMOL/L (20-31); CHLORIDE LEVEL 104 MMOL/L (98-107); CREATININE FOR GFR 0.73 MG/DL (0.55-1.30); GLOMERULAR FILTRATION RATE > 60.0 (>51); GLUCOSE, FASTING 124 MG/DL (60-100); SODIUM LEVEL 139 MMOL/L (136-145)
[2022-04-27 08:09] VITALS: BP 176/80
[2022-04-27] MEDS: GABAPENTIN 400MG CAP PO SCH (08:17)
[2022-04-27] MEDS: levETIRAcetam 250MG TABLET (KEPPRA) PO SCH (08:17)
[2022-04-27 08:18] VITALS: BP 176/80
[2022-04-27] MEDS: HYDROXYCHLOROQUINE 200 MG TAB PO SCH (08:18)
[2022-04-27] MEDS ORDERED: FAMOTIDINE 20 MG TAB PO SCH (09:00)
[2022-04-27] MEDS ORDERED: FOLIC ACID 1MG TAB PO SCH (09:00)
[2022-04-27 11:44] VITALS: BP 134/69
[2022-04-27] MEDS ORDERED: PERCOCET 5MG/325MG TAB PO PRN (12:55)
[2022-04-27] MEDS ORDERED: PERCOCET PO ×2 (15:11→17:51)
[2022-04-27] MEDS ORDERED: CYCL5TAB PO ×2 (15:26→17:51)
[2022-04-27] MEDS ORDERED: GABA-283 PO (15:26)
[2022-04-27 16:25] VITALS: BP 103/64
== END 2022-04-27 18:41 | disposition home or self-care (01) | DRG 347 ==
LOC: M ED 13:03 → M ED INP 17:57 → M PCU 20:22
PROVIDERS: ADMIT Internal Medicine; ATTEND Internal Medicine
DX: S32.048A Other fracture of fourth lumbar vertebra, initial encounter for closed fracture (principal); I10 Essential (primary) hypertension; I16.0 Hypertensive urgency; L93.0 Discoid lupus erythematosus; G40.909 Epilepsy, unspecified, not intractable, without status epilepticus; K21.9 Gastro-esophageal reflux disease without esophagitis; M19.90 Unspecified osteoarthritis, unspecified site; W08.XXXA Fall from other furniture, initial encounter; Y92.018 Other place in single-family (private) house as the place of occurrence of the external cause; Y93.E2 Activity, laundry; Y99.8 Other external cause status; M54.9 Dorsalgia, unspecified; G89.29 Other chronic pain; R73.03 Prediabetes; Z98.84 Bariatric surgery status; Z79.899 Other long term (current) drug therapy; Z88.0 Allergy status to penicillin; Z87.891 Personal history of nicotine dependence

== ENCOUNTER → 2022-06-10 | Outpatient (CLI) | payer OTHER ==
[~2022-06-10] MED LIST changes: +ACIT1CAP PO; +B-12100020 PO; +BENL200I SC; +CEFD300C41 PO; +GABA-283 PO; +HYDR-3363 PO; +LISI20TA33 PO; +PRED10TA2 PO; +TRIA1OI TOP
== END ==
LOC: M PLARAD 12:31
PROVIDERS: ATTEND Physician Assistant
DX: S32.040D Wedge compression fracture of fourth lumbar vertebra, subsequent encounter for fracture with routine healing (principal); W18.30XD Fall on same level, unspecified, subsequent encounter; Y92.009 Unspecified place in unspecified non-institutional (private) residence as the place of occurrence of the external cause

== ENCOUNTER 2022-07-18 14:54 | Emergency (ER) | payer OTHER ==
[~2022-07-18] VITALS: Ht 162.6 cm; Wt 70.3 kg
[2022-07-18 15:31] VITALS: BP 144/85
[2022-07-18 15:45] LABS: BASO % 0.3 % (0.0-1.0); EOS % 0.6 % (0.0-3.0); HEMATOCRIT 36.7 % (36.0-47.0); HEMOGLOBIN 11.9 g/dl (12.0-15.5); LYMPH # 1.7 10^3/uL (1.5-5.0); LYMPH % 53.4 % (24.0-44.0); MEAN CORPUSCULAR HEMOGLOBIN 31.1 pg (27.0-33.0); MEAN CORPUSCULAR HGB CONC 32.4 g/dl (32.0-36.5); MEAN CORPUSCULAR VOLUME 95.8 fl (80.0-96.0); MONO # 0.4 10^3/uL (0.0-0.8); MONO % 13.2 % (2.0-8.0); NEUTROPHILS % 32.2 % (36.0-66.0); PLATELET COUNT, AUTOMATED 233 10^3/uL (150-450); RED BLOOD COUNT 3.83 10^6/uL (4.00-5.40); WHITE BLOOD COUNT 3.1 10^3/uL (4.0-10.0)
[2022-07-18 16:02] LABS: ALBUMIN 3.1 G/DL (3.2-5.2); ALKALINE PHOSPHATASE 97 U/L (46-116); ALT/SGPT 21 U/L (7.0-40); AST/SGOT 28 U/L (<34); BILIRUBIN,DIRECT 0.1 MG/DL (<0.4); BILIRUBIN,TOTAL 0.2 MG/DL (0.3-1.2); BLOOD UREA NITROGEN 9 MG/DL (9-23); CALCIUM LEVEL 8.5 MG/DL (8.5-10.1); CARBON DIOXIDE LEVEL 26 MMOL/L (20-31); CHLORIDE LEVEL 110 MMOL/L (98-107); CREATININE FOR GFR 0.65 MG/DL (0.55-1.30); GLOMERULAR FILTRATION RATE > 60.0 (>51); GLUCOSE, FASTING 77 MG/DL (60-100); MAGNESIUM LEVEL 1.9 MG/DL (1.8-2.4); PHOSPHORUS LEVEL 4.1 MG/DL (2.5-4.9); POTASSIUM SERUM 3.6 MMOL/L (3.5-5.1); SODIUM LEVEL 141 MMOL/L (136-145); TOTAL PROTEIN 7.2 G/DL (5.7-8.2)
[2022-07-18] MEDS ORDERED: levETIRAcetam INJection 1,000 MG in D5W 100 ML IV ONE (16:35)
[2022-07-18] MEDS ORDERED: MAGNESIUM SULFATE IN WATER 2 GM in IV 1 EA IV STA ×2 (17:41)
[2022-07-18] MEDS ORDERED: KEPP1TAB PO (17:55)
== END 2022-07-18 18:30 | disposition home or self-care (01) ==
LOC: EDBD 14:54 → M ED 14:54
DX: R56.9 Unspecified convulsions (principal); L93.0 Discoid lupus erythematosus; I10 Essential (primary) hypertension; M19.90 Unspecified osteoarthritis, unspecified site; Z87.891 Personal history of nicotine dependence; Z88.0 Allergy status to penicillin; Z79.899 Other long term (current) drug therapy; Z79.52 Long term (current) use of systemic steroids
CPT/HCPCS: 80048; 80076; 82140; 82330; 83605; 83735; 84100; 85025; 93041; 94760; 96374; 99284; J1953

== ENCOUNTER → 2022-08-24 | Outpatient (CLI) | payer OTHER ==
[~2022-08-24] MED LIST changes: -HYDR200T3; -HYDR200T3 PO; +HYDR200T46; +HYDR200T46 PO; +KEPP1TAB PO
== END ==
LOC: M TMPAIN 16:15 → M PAIN 16:15
PROVIDERS: ATTEND Anesthesiology
DX: M47.816 Spondylosis without myelopathy or radiculopathy, lumbar region (principal); M47.817 Spondylosis without myelopathy or radiculopathy, lumbosacral region; M51.16 Intervertebral disc disorders with radiculopathy, lumbar region; G89.29 Other chronic pain; I10 Essential (primary) hypertension; G40.909 Epilepsy, unspecified, not intractable, without status epilepticus; J45.30 Mild persistent asthma, uncomplicated; Z86.59 Personal history of other mental and behavioral disorders; Z98.84 Bariatric surgery status; Z87.891 Personal history of nicotine dependence; Z88.0 Allergy status to penicillin; Z79.899 Other long term (current) drug therapy; E11.9 Type 2 diabetes mellitus without complications; E78.5 Hyperlipidemia, unspecified

== ENCOUNTER → 2022-08-31 | Outpatient (CLI) | payer OTHER ==
[2022-08-31 13:06] LABS: BASO % 0.3 % (0.0-1.0); EOS % 0.8 % (0.0-3.0); HEMATOCRIT 38.1 % (36.0-47.0); HEMOGLOBIN 12.2 g/dl (12.0-15.5); LYMPH # 1.3 10^3/uL (1.5-5.0); MEAN CORPUSCULAR HEMOGLOBIN 30.8 pg (27.0-33.0); MEAN CORPUSCULAR VOLUME 96.2 fl (80.0-96.0); MONO # 0.4 10^3/uL (0.0-0.8); MONO % 9.9 % (2.0-8.0); NEUTROPHILS % 53.7 % (36.0-66.0); PLATELET COUNT, AUTOMATED 192 10^3/uL (150-450); RED BLOOD COUNT 3.96 10^6/uL (4.00-5.40); WHITE BLOOD COUNT 3.6 10^3/uL (4.0-10.0)
[2022-08-31 13:27] LABS: ERYTHROCYTE SEDIMENTATION RATE 43 mm/hr (0-30)
[2022-08-31 13:36] LABS: C REACTIVE PROTEIN QUANTITATIV < 0.40 MG/DL (<1.0)
[2022-08-31 13:37] LABS: COMPLEMENT C3 93.8 MG/DL (90.0-170.0); COMPLEMENT C4 31.4 MG/DL (12-36); IMMUNOGLOBULIN A 402.5 MG/DL (40-350); IMMUNOGLOBULIN G 1945 MG/DL (650-1600); IMMUNOGLOBULIN M 178.8 MG/DL (50-300)
[2022-09-01 15:25] LABS: CRYOGLOBULINS NEGATIVE (NEGATIVE)
== END ==
LOC: M LAB 12:05
PROVIDERS: ATTEND Internal Medicine Rheumatology
DX: M32.19 Other organ or system involvement in systemic lupus erythematosus (principal); M35.01 Sjogren syndrome with keratoconjunctivitis; Z79.899 Other long term (current) drug therapy

== ENCOUNTER 2022-11-08 16:08 | Emergency (ER) | payer OTHER ==
[~2022-11-08] VITALS: Ht 162.6 cm; Wt 63.6 kg
[~2022-11-08 16:08] MED LIST changes: -GABA-283 PO; +GABA-284 PO
[2022-11-08 16:09] VITALS: TEMP 97
[2022-11-08 17:23] VITALS: O2SAT 95
[2022-11-08 17:45] LABS: BASO % 0.5 % (0.0-1.0); EOS % 0.5 % (0.0-3.0); HEMATOCRIT 38.6 % (36.0-47.0); HEMOGLOBIN 12.3 g/dl (12.0-15.5); LYMPH # 1.1 10^3/uL (1.5-5.0); LYMPH % 25.9 % (24.0-44.0); MEAN CORPUSCULAR HEMOGLOBIN 31.4 pg (27.0-33.0); MEAN CORPUSCULAR HGB CONC 31.9 g/dl (32.0-36.5); MEAN CORPUSCULAR VOLUME 98.5 fl (80.0-96.0); MONO # 0.6 10^3/uL (0.0-0.8); MONO % 13.9 % (2.0-8.0); NEUTROPHILS # 2.6 10^3/uL (1.5-8.5); NEUTROPHILS % 58.7 % (36.0-66.0); PLATELET COUNT, AUTOMATED 192 10^3/uL (150-450); RED BLOOD COUNT 3.92 10^6/uL (4.00-5.40); WHITE BLOOD COUNT 4.3 10^3/uL (4.0-10.0)
[2022-11-08 17:56] LABS: CK-MB VALUE MASS < 1.0 NG/ML (<3.6)
[2022-11-08 17:57] LABS: LIPASE 26 U/L (12-53)
[2022-11-08 17:59] LABS: ALBUMIN 3.1 G/DL (3.2-5.2); ALKALINE PHOSPHATASE 100 U/L (46-116); ALT/SGPT 16 U/L (7.0-40); AST/SGOT 25 U/L (<34); BILIRUBIN,DIRECT 0.1 MG/DL (<0.4); BILIRUBIN,TOTAL 0.2 MG/DL (0.3-1.2); BLOOD UREA NITROGEN 11 MG/DL (9-23); CALCIUM LEVEL 8.5 MG/DL (8.5-10.1); CARBON DIOXIDE LEVEL 26 MMOL/L (20-31); CHLORIDE LEVEL 107 MMOL/L (98-107); CREATININE FOR GFR 0.54 MG/DL (0.55-1.30); GLOMERULAR FILTRATION RATE > 60.0 (>51); GLUCOSE, FASTING 86 MG/DL (60-100); INR 0.94; PARTIAL THROMBOPLASTIN TIME 24.7 SECONDS (24.8-34.2); POTASSIUM SERUM 5.2 MMOL/L (3.5-5.1); PROTHROMBIN TIME 12.3 SECONDS (12.5-14.5); SODIUM LEVEL 139 MMOL/L (136-145); TOTAL PROTEIN 7.6 G/DL (5.7-8.2)
[2022-11-08 18:01] LABS: FREE T4 0.83 NG/DL (0.89-1.76); THYROID STIMULATING HORMONE 0.894 uIU/ML (0.55-4.78)
[2022-11-08 18:05] LABS: CPK CREATINE PHOSPHOKINASE 87 U/L (34-145); MB/CK RELATIVE INDEX 1.14 (< OR =4)
[2022-11-08] MEDS ORDERED: NS 1,000 ML IV SCH (18:05)
[2022-11-08] MEDS ORDERED: MORPHINE 4 MG/ML 1ML VIAL IV ONE (18:05)
[2022-11-08] MEDS ORDERED: ISOVUE-370 76% 100ML VIAL As Ordered ONE (18:06)
[2022-11-08 18:40] VITALS: BP 168/80
[2022-11-08 18:49] VITALS: O2SAT 95
[2022-11-08 19:13] LABS: CK-MB VALUE MASS < 1.0 NG/ML (<3.6)
[2022-11-08 19:15] LABS: CPK CREATINE PHOSPHOKINASE 48 U/L (34-145); MB/CK RELATIVE INDEX 2.08 (< OR =4)
[2022-11-08 19:27] LABS: RSV AMPLIFICATION NEGATIVE (NEGATIVE)
[2022-11-08] MEDS ORDERED: FAMOTIDINE 20 MG TAB PO ONE (19:45)
[2022-11-08] MEDS ORDERED: SOD POLYSTYRENE SULFONATE SUSP 15GM 60ML UD PO ONE (20:00)
== END 2022-11-08 20:25 | disposition home or self-care (01) ==
LOC: M ED 16:08
DX: S20.214A Contusion of middle front wall of thorax, initial encounter (principal); E87.5 Hyperkalemia; W01.0XXA Fall on same level from slipping, tripping and stumbling without subsequent striking against object, initial encounter; I10 Essential (primary) hypertension; G40.909 Epilepsy, unspecified, not intractable, without status epilepticus; Z87.891 Personal history of nicotine dependence; Z88.0 Allergy status to penicillin; Z79.2 Long term (current) use of antibiotics; Z79.891 Long term (current) use of opiate analgesic; Z79.811 Long term (current) use of aromatase inhibitors; Z79.899 Other long term (current) drug therapy
CPT/HCPCS: 71046; 71260; 74177; 80048; 80076; 82550; 82553; 83690; 84439; 84443; 85025; 85610; 85730; 87631; 93005; 93041; 94760; 96361; 96374; 99285; Q9967

== ENCOUNTER 2022-12-03 21:22 | Inpatient (IN) | payer OTHER ==
[~2022-12-03] VITALS: Ht 172.7 cm; Wt 63.1 kg
[~2022-12-03 21:22] MED LIST changes: -CEFD300C41 PO; +CEFD300C42 PO
[2022-12-03] MEDS ORDERED: ACETAMINOPHEN TAB 650MG DOSE (2X325MG) PO ONE (21:50)
[2022-12-03] MEDS ORDERED: NS 1,000 ML IV ONE (21:50)
[2022-12-03] MEDS ORDERED: ACETAMINOPHEN *IV* 1,000 MG in IV 1 EA IV ONE (22:05)
[2022-12-03] MEDS ORDERED: cefTRIAXone SOD 2 GM in D5W MINI-BAG PLUS 50 ML IV ONE (22:10)
[2022-12-03 22:13] LABS: BASO % 0.2 % (0.0-1.0); EOS % 0.2 % (0.0-3.0); HEMATOCRIT 32.1 % (36.0-47.0); HEMOGLOBIN 10.5 g/dl (12.0-15.5); LYMPH # 0.9 10^3/uL (1.5-5.0); MEAN CORPUSCULAR HEMOGLOBIN 31.7 pg (27.0-33.0); MEAN CORPUSCULAR HGB CONC 32.7 g/dl (32.0-36.5); MONO # 0.8 10^3/uL (0.0-0.8); MONO % 6.2 % (2.0-8.0); NEUTROPHILS # 10.4 10^3/uL (1.5-8.5); PLATELET COUNT, AUTOMATED 157 10^3/uL (150-450); RED BLOOD COUNT 3.31 10^6/uL (4.00-5.40); WHITE BLOOD COUNT 12.1 10^3/uL (4.0-10.0)
[2022-12-03 22:35] LABS: LIPASE 38 U/L (12-53)
[2022-12-03 22:37] LABS: CPK CREATINE PHOSPHOKINASE 73 U/L (34-145)
[2022-12-03 22:38] LABS: ALBUMIN 2.8 G/DL (3.2-5.2); ALKALINE PHOSPHATASE 93 U/L (46-116); ALT/SGPT 10 U/L (7.0-40); AST/SGOT 20 U/L (<34); BILIRUBIN,DIRECT 0.4 MG/DL (<0.4); BILIRUBIN,TOTAL 0.6 MG/DL (0.3-1.2); BLOOD UREA NITROGEN 8 MG/DL (9-23); CALCIUM LEVEL 7.9 MG/DL (8.5-10.1); CARBON DIOXIDE LEVEL 26 MMOL/L (20-31); CHLORIDE LEVEL 105 MMOL/L (98-107); CK-MB VALUE MASS < 1.0 NG/ML (<3.6); CREATININE FOR GFR 0.58 MG/DL (0.55-1.30); GLOMERULAR FILTRATION RATE > 60.0 (>51); GLUCOSE, FASTING 106 MG/DL (60-100); MB/CK RELATIVE INDEX 1.36 (< OR =4); POTASSIUM SERUM 4.2 MMOL/L (3.5-5.1); SODIUM LEVEL 136 MMOL/L (136-145); TOTAL PROTEIN 6.8 G/DL (5.7-8.2)
[2022-12-03 22:49] LABS: PROCALCITONIN <0.04 ng/ml
[2022-12-03 23:55] LABS: CK-MB VALUE MASS < 1.0 NG/ML (<3.6)
[2022-12-04] MEDS ORDERED: IBUPROFEN 800 MG TAB PO ONE
[2022-12-04 00:01] LABS: CPK CREATINE PHOSPHOKINASE 83 U/L (34-145)
[2022-12-04] MEDS ORDERED: AMLO1TAB24 PO (01:07)
[2022-12-04] MEDS ORDERED: GABA800T4 PO (01:07)
[2022-12-04] MEDS ORDERED: LEVE10003 PO (01:07)
[2022-12-04] MEDS ORDERED: HOME MED LIST COMPLETE! XX SCH (01:10)
[2022-12-04] MEDS: ALBUTEROL SULFATE 2.5MG/0.5ML INH NEB SOLN INH SCH ×4 (02:00→20:18)
[2022-12-04] MEDS ORDERED: DOXYCYCLINE HYCLATE 100MG TABLET PO ONE (04:00)
[2022-12-04] MEDS: DOXEPIN 25 MG CAP PO SCH ×2 (04:41→20:23)
[2022-12-04 07:28] LABS: BASO % 0.1 % (0.0-1.0); EOS % 0.1 % (0.0-3.0); HEMATOCRIT 30.5 % (36.0-47.0); HEMOGLOBIN 9.9 g/dl (12.0-15.5); LYMPH # 1.2 10^3/uL (1.5-5.0); LYMPH % 12.2 % (24.0-44.0); MEAN CORPUSCULAR HEMOGLOBIN 31.5 pg (27.0-33.0); MEAN CORPUSCULAR HGB CONC 32.5 g/dl (32.0-36.5); MEAN CORPUSCULAR VOLUME 97.1 fl (80.0-96.0); MONO # 0.7 10^3/uL (0.0-0.8); MONO % 7.2 % (2.0-8.0); NEUTROPHILS # 7.6 10^3/uL (1.5-8.5); NEUTROPHILS % 79.9 % (36.0-66.0); PLATELET COUNT, AUTOMATED 159 10^3/uL (150-450); RED BLOOD COUNT 3.14 10^6/uL (4.00-5.40); WHITE BLOOD COUNT 9.5 10^3/uL (4.0-10.0)
[2022-12-04 08:00] LABS: BLOOD UREA NITROGEN 9 MG/DL (9-23); CALCIUM LEVEL 7.8 MG/DL (8.5-10.1); CARBON DIOXIDE LEVEL 24 MMOL/L (20-31); CHLORIDE LEVEL 110 MMOL/L (98-107); CREATININE FOR GFR 0.59 MG/DL (0.55-1.30); GLOMERULAR FILTRATION RATE > 60.0 (>51); GLUCOSE, FASTING 98 MG/DL (60-100); POTASSIUM SERUM 3.8 MMOL/L (3.5-5.1); SODIUM LEVEL 139 MMOL/L (136-145)
[2022-12-04 08:56] VITALS: O2SAT 98
[2022-12-04] MEDS ORDERED: amLODIPine 5 MG TAB PO SCH (09:00)
[2022-12-04] MEDS: FOLIC ACID 1MG TAB PO SCH (10:20)
[2022-12-04] MEDS: GABAPENTIN 400MG CAP PO SCH ×2 (10:20→20:22)
[2022-12-04] MEDS: FAMOTIDINE 20 MG TAB PO SCH (10:21)
[2022-12-04] MEDS: levETIRAcetam 250MG TABLET (KEPPRA) PO SCH ×2 (10:24→20:23)
[2022-12-04] MEDS: ENOXAPARIN 40MG/0.4ML SYRINGE (J1650 PER 10MG) SC SCH (10:25)
[2022-12-04] MEDS: HYDROXYCHLOROQUINE 200 MG TAB PO SCH ×2 (10:25→20:22)
[2022-12-04] MEDS: DOXYCYCLINE HYCLATE 100MG TABLET PO SCH (18:39)
[2022-12-04 19:00] VITALS: O2SAT 100
[2022-12-04 19:01] VITALS: O2SAT 99
[2022-12-04 19:45] VITALS: BP 170/78; TEMP 98.7; O2SAT 99
[2022-12-04] MEDS ORDERED: amLODIPine 5 MG TAB PO ONE (21:00)
[2022-12-04 22:34] VITALS: BP 149/82; TEMP 98.8; O2SAT 98
[2022-12-04 23:00] VITALS: O2SAT 99
[2022-12-04] MEDS ORDERED: cefTRIAXone SOD 1 GM in D5W MINI-BAG PLUS 50 ML IV SCH (23:00)
[2022-12-04] MEDS: cefTRIAXone SOD 2 GM in D5W MINI-BAG PLUS 50 ML IV SCH (23:44)
[2022-12-05] VITALS (15 sets, daily range): BP systolic 125–210; BP diastolic 62–110; TEMP 97.9–103.7; O2SAT 95–100
[2022-12-05] MEDS: ALBUTEROL SULFATE 2.5MG/0.5ML INH NEB SOLN INH SCH ×4 (01:22→19:10)
[2022-12-05 04:56] LABS: HEMATOCRIT 30.2 % (36.0-47.0); HEMOGLOBIN 9.7 g/dl (12.0-15.5); MEAN CORPUSCULAR HEMOGLOBIN 31.2 pg (27.0-33.0); MEAN CORPUSCULAR HGB CONC 32.1 g/dl (32.0-36.5); MEAN CORPUSCULAR VOLUME 97.1 fl (80.0-96.0); PLATELET COUNT, AUTOMATED 152 10^3/uL (150-450); RED BLOOD COUNT 3.11 10^6/uL (4.00-5.40)
[2022-12-05 05:33] LABS: ALBUMIN 2.1 G/DL (3.2-5.2); ALKALINE PHOSPHATASE 78 U/L (46-116); ALT/SGPT < 9 U/L (7.0-40); AST/SGOT 20 U/L (<34); BILIRUBIN,TOTAL 0.2 MG/DL (0.3-1.2); BLOOD UREA NITROGEN 10 MG/DL (9-23); CALCIUM LEVEL 8.1 MG/DL (8.5-10.1); CARBON DIOXIDE LEVEL 25 MMOL/L (20-31); CHLORIDE LEVEL 109 MMOL/L (98-107); CREATININE FOR GFR 0.57 MG/DL (0.55-1.30); GLOMERULAR FILTRATION RATE > 60.0 (>51); GLUCOSE, FASTING 121 MG/DL (60-100); SODIUM LEVEL 139 MMOL/L (136-145)
[2022-12-05] MEDS: DOXYCYCLINE HYCLATE 100MG TABLET PO SCH ×2 (06:04→18:28)
[2022-12-05] MEDS: FAMOTIDINE 20 MG TAB PO SCH (09:38)
[2022-12-05] MEDS: FOLIC ACID 1MG TAB PO SCH (09:38)
[2022-12-05] MEDS: GABAPENTIN 400MG CAP PO SCH ×2 (09:38→21:05)
[2022-12-05] MEDS: ENOXAPARIN 40MG/0.4ML SYRINGE (J1650 PER 10MG) SC SCH (09:38)
[2022-12-05] MEDS: HYDROXYCHLOROQUINE 200 MG TAB PO SCH ×2 (09:39→21:04)
[2022-12-05] MEDS: levETIRAcetam 250MG TABLET (KEPPRA) PO SCH ×2 (09:39→21:05)
[2022-12-05] MEDS: ACETAMINOPHEN TAB 650MG DOSE (2X325MG) PO PRN (13:37)
[2022-12-05] MEDS: IBUPROFEN 800 MG TAB PO PRN (14:34)
[2022-12-05] MEDS: DOXEPIN 25 MG CAP PO SCH (21:05)
[2022-12-05] MEDS: amLODIPine 5 MG TAB PO SCH (21:06)
[2022-12-05] MEDS: cefTRIAXone SOD 2 GM in D5W MINI-BAG PLUS 50 ML IV SCH (23:24)
[2022-12-06] VITALS (8 sets, daily range): BP systolic 105–148; BP diastolic 58–81; TEMP 98.6–103.5; O2SAT 94–100
[2022-12-06] MEDS: ALBUTEROL SULFATE 2.5MG/0.5ML INH NEB SOLN INH SCH ×4 (01:22→19:26)
[2022-12-06] MEDS ORDERED: BENZONATATE 100MG CAPSULE PO PRN (03:35)
[2022-12-06 05:51] LABS: BASO % 0.1 % (0.0-1.0); EOS % 0.3 % (0.0-3.0); HEMOGLOBIN 10.6 g/dl (12.0-15.5); LYMPH # 0.9 10^3/uL (1.5-5.0); LYMPH % 12.2 % (24.0-44.0); MEAN CORPUSCULAR HEMOGLOBIN 31.1 pg (27.0-33.0); MEAN CORPUSCULAR HGB CONC 32.1 g/dl (32.0-36.5); MEAN CORPUSCULAR VOLUME 96.8 fl (80.0-96.0); MONO # 0.7 10^3/uL (0.0-0.8); MONO % 8.6 % (2.0-8.0); NEUTROPHILS # 6.1 10^3/uL (1.5-8.5); NEUTROPHILS % 78.5 % (36.0-66.0); PLATELET COUNT, AUTOMATED 174 10^3/uL (150-450); RED BLOOD COUNT 3.41 10^6/uL (4.00-5.40); WHITE BLOOD COUNT 7.7 10^3/uL (4.0-10.0)
[2022-12-06 06:13] LABS: BLOOD UREA NITROGEN 11 MG/DL (9-23); CALCIUM LEVEL 8.6 MG/DL (8.5-10.1); CARBON DIOXIDE LEVEL 25 MMOL/L (20-31); CHLORIDE LEVEL 107 MMOL/L (98-107); CREATININE FOR GFR 0.62 MG/DL (0.55-1.30); GLOMERULAR FILTRATION RATE > 60.0 (>51); GLUCOSE, FASTING 85 MG/DL (60-100); POTASSIUM SERUM 4.2 MMOL/L (3.5-5.1); SODIUM LEVEL 138 MMOL/L (136-145)
[2022-12-06] MEDS: DOXYCYCLINE HYCLATE 100MG TABLET PO SCH ×2 (06:18→17:49)
[2022-12-06] MEDS: IBUPROFEN 800 MG TAB PO PRN (06:35)
[2022-12-06] MEDS: ENOXAPARIN 40MG/0.4ML SYRINGE (J1650 PER 10MG) SC SCH (09:23)
[2022-12-06] MEDS: GABAPENTIN 400MG CAP PO SCH ×2 (09:24→22:33)
[2022-12-06] MEDS: levETIRAcetam 250MG TABLET (KEPPRA) PO SCH ×2 (09:24→22:33)
[2022-12-06] MEDS: FOLIC ACID 1MG TAB PO SCH (09:24)
[2022-12-06] MEDS: FAMOTIDINE 20 MG TAB PO SCH (09:24)
[2022-12-06] MEDS: HYDROXYCHLOROQUINE 200 MG TAB PO SCH ×2 (10:48→22:34)
[2022-12-06] MEDS: ACETAMINOPHEN TAB 650MG DOSE (2X325MG) PO PRN (11:00)
[2022-12-06] MEDS ORDERED: IBUPROFEN 600MG TAB PO PRN (12:05)
[2022-12-06] MEDS ORDERED: IBUPROFEN 400MG TAB PO PRN (16:00)
[2022-12-06] MEDS: cefTRIAXone SOD 2 GM in D5W MINI-BAG PLUS 50 ML IV SCH (22:25)
[2022-12-06] MEDS: amLODIPine 5 MG TAB PO SCH (22:32)
[2022-12-06] MEDS: DOXEPIN 25 MG CAP PO SCH (22:33)
[2022-12-07] MEDS: ALBUTEROL SULFATE 2.5MG/0.5ML INH NEB SOLN INH SCH ×4 (01:37→20:48)
[2022-12-07 04:03] VITALS: TEMP 98.6
[2022-12-07] MEDS: DOXYCYCLINE HYCLATE 100MG TABLET PO SCH ×2 (05:25→17:27)
[2022-12-07 06:29] LABS: BASO % 0.2 % (0.0-1.0); EOS % 0.6 % (0.0-3.0); HEMATOCRIT 30.2 % (36.0-47.0); HEMOGLOBIN 9.8 g/dl (12.0-15.5); LYMPH # 0.8 10^3/uL (1.5-5.0); LYMPH % 16.7 % (24.0-44.0); MEAN CORPUSCULAR HEMOGLOBIN 31.4 pg (27.0-33.0); MEAN CORPUSCULAR HGB CONC 32.5 g/dl (32.0-36.5); MEAN CORPUSCULAR VOLUME 96.8 fl (80.0-96.0); MONO # 0.7 10^3/uL (0.0-0.8); MONO % 13.7 % (2.0-8.0); NEUTROPHILS # 3.2 10^3/uL (1.5-8.5); NEUTROPHILS % 68.4 % (36.0-66.0); PLATELET COUNT, AUTOMATED 183 10^3/uL (150-450); RED BLOOD COUNT 3.12 10^6/uL (4.00-5.40); WHITE BLOOD COUNT 4.7 10^3/uL (4.0-10.0)
[2022-12-07 06:55] LABS: BLOOD UREA NITROGEN 11 MG/DL (9-23); CALCIUM LEVEL 8.2 MG/DL (8.5-10.1); CARBON DIOXIDE LEVEL 26 MMOL/L (20-31); CHLORIDE LEVEL 106 MMOL/L (98-107); CREATININE FOR GFR 0.63 MG/DL (0.55-1.30); GLOMERULAR FILTRATION RATE > 60.0 (>51); GLUCOSE, FASTING 86 MG/DL (60-100); SODIUM LEVEL 136 MMOL/L (136-145)
[2022-12-07 07:38] VITALS: BP 119/61; TEMP 98.4; O2SAT 100
[2022-12-07] MEDS: GABAPENTIN 400MG CAP PO SCH ×2 (08:06→20:50)
[2022-12-07] MEDS: ENOXAPARIN 40MG/0.4ML SYRINGE (J1650 PER 10MG) SC SCH (08:06)
[2022-12-07] MEDS: levETIRAcetam 250MG TABLET (KEPPRA) PO SCH ×2 (08:06→20:50)
[2022-12-07] MEDS: HYDROXYCHLOROQUINE 200 MG TAB PO SCH ×2 (08:07→20:50)
[2022-12-07] MEDS: FOLIC ACID 1MG TAB PO SCH (08:07)
[2022-12-07] MEDS: FAMOTIDINE 20 MG TAB PO SCH (08:07)
[2022-12-07 12:31] VITALS: BP 115/62; TEMP 98.2; O2SAT 98
[2022-12-07 15:30] VITALS: BP 137/81; TEMP 99.3; O2SAT 100
[2022-12-07] MEDS ORDERED: CALCIUM CARBONATE 500 MG CHEW U/D PO ONE (19:50)
[2022-12-07] MEDS: DOXEPIN 25 MG CAP PO SCH (20:50)
[2022-12-07] MEDS: amLODIPine 5 MG TAB PO SCH (20:55)
[2022-12-07 20:58] VITALS: BP 138/97; TEMP 97.7
[2022-12-07] MEDS: cefTRIAXone SOD 2 GM in D5W MINI-BAG PLUS 50 ML IV SCH (23:20)
[2022-12-08] MEDS: ALBUTEROL SULFATE 2.5MG/0.5ML INH NEB SOLN INH SCH ×3 (01:35→08:00)
[2022-12-08 05:53] VITALS: BP 123/74; TEMP 100.8; O2SAT 98
[2022-12-08] MEDS: DOXYCYCLINE HYCLATE 100MG TABLET PO SCH (06:01)
[2022-12-08 06:05] LABS: BASO % 0.3 % (0.0-1.0); EOS # 0.1 10^3/uL (0.0-0.5); EOS % 1.3 % (0.0-3.0); HEMATOCRIT 29.9 % (36.0-47.0); HEMOGLOBIN 9.6 g/dl (12.0-15.5); LYMPH % 24.7 % (24.0-44.0); MEAN CORPUSCULAR HEMOGLOBIN 31.4 pg (27.0-33.0); MEAN CORPUSCULAR HGB CONC 32.1 g/dl (32.0-36.5); MEAN CORPUSCULAR VOLUME 97.7 fl (80.0-96.0); MONO # 0.5 10^3/uL (0.0-0.8); MONO % 13.7 % (2.0-8.0); NEUTROPHILS # 2.3 10^3/uL (1.5-8.5); NEUTROPHILS % 59.5 % (36.0-66.0); PLATELET COUNT, AUTOMATED 234 10^3/uL (150-450); RED BLOOD COUNT 3.06 10^6/uL (4.00-5.40); WHITE BLOOD COUNT 3.9 10^3/uL (4.0-10.0)
[2022-12-08 06:31] LABS: BLOOD UREA NITROGEN 9 MG/DL (9-23); CALCIUM LEVEL 8.5 MG/DL (8.5-10.1); CARBON DIOXIDE LEVEL 25 MMOL/L (20-31); CHLORIDE LEVEL 110 MMOL/L (98-107); GLOMERULAR FILTRATION RATE > 60.0 (>51); GLUCOSE, FASTING 91 MG/DL (60-100); POTASSIUM SERUM 4.1 MMOL/L (3.5-5.1); SODIUM LEVEL 137 MMOL/L (136-145)
[2022-12-08] MEDS ORDERED: CEFD300CAP PO (09:02)
[2022-12-08] MEDS ORDERED: DOXY100T PO (09:02)
[2022-12-08] MEDS ORDERED: PROBCAP14 PO (09:02)
[2022-12-08] MEDS: FOLIC ACID 1MG TAB PO SCH (09:10)
[2022-12-08] MEDS: levETIRAcetam 250MG TABLET (KEPPRA) PO SCH (09:11)
[2022-12-08] MEDS: GABAPENTIN 400MG CAP PO SCH (09:11)
[2022-12-08] MEDS: HYDROXYCHLOROQUINE 200 MG TAB PO SCH (09:11)
[2022-12-08] MEDS: FAMOTIDINE 20 MG TAB PO SCH (09:11)
[2022-12-08] MEDS: ENOXAPARIN 40MG/0.4ML SYRINGE (J1650 PER 10MG) SC SCH (09:12)
[2022-12-08 09:13] VITALS: BP 132/85
[2022-12-08 17:15] LABS: BODY FLUID CULTURE Not indicated. (.); LEGIONELLA ANTIGEN URINE Negative (Negative); ORGANISM ID Not indicated. (.); SPECIMEN SOURCE Urine (.); URINE STREP PNEUMONIAE ANTIGEN Negative (Negative)
== END 2022-12-08 10:39 | disposition home or self-care (01) | DRG 720 ==
LOC: M ED 21:22 → M ED INP 12-04 03:18 → ENRESERV 12-04 17:14 → M PCU 12-04 19:32 → M MSPAV 12-07 15:23
PROVIDERS: ADMIT Internal Medicine; ATTEND Internal Medicine Nephrology
PROC: B246ZZZ Ultrasonography of Right and Left Heart (ICD-10-PCS; principal; 2022-12-04)
DX: A41.9 Sepsis, unspecified organism (principal); G93.41 Metabolic encephalopathy; J18.9 Pneumonia, unspecified organism; I10 Essential (primary) hypertension; D63.8 Anemia in other chronic diseases classified elsewhere; E11.9 Type 2 diabetes mellitus without complications; G40.909 Epilepsy, unspecified, not intractable, without status epilepticus; L93.0 Discoid lupus erythematosus; Z98.84 Bariatric surgery status; Z79.899 Other long term (current) drug therapy; Z88.0 Allergy status to penicillin; K80.20 Calculus of gallbladder without cholecystitis without obstruction; M48.061 Spinal stenosis, lumbar region without neurogenic claudication

== ENCOUNTER 2022-12-29 23:15 | Inpatient (IN) | payer MEDICAID, OTHER ==
[~2022-12-29] VITALS: Ht 170.2 cm; Wt 67.5 kg
[~2022-12-29 23:15] MED LIST changes: +AMLO1TAB24 PO; +DOXY100T PO; +LEVE10003 PO; +PROBCAP14 PO
[2022-12-29] MEDS ORDERED: NS 1,000 ML IV ONE (23:20)
[2022-12-29 23:54] LABS: ABG BASE EXCESS -0.2 (-2.0-2.0); ABG HCO3 24.1 MMOL/L (22.0-26.0); ABG O2 SATURATION 97.2 % (95.0-99.0); ABG PARTIAL PRESSURE CO2 37.7 mmHg (35.0-45.0); ABG PARTIAL PRESSURE O2 137.9 mmHg (75.0-100.0); ABG STANDARD HCO3 24.4 MMOL/L. (22.0-26.0); ABG TOTAL CO2 25.2 MMOL/L (22.0-29.0); ABG pH (ARTERIAL) 7.423 UNITS (7.350-7.450)
[2022-12-30 00:09] LABS: BASO % 0.2 % (0.0-1.0); CK-MB VALUE MASS < 1.0 NG/ML (<3.6); EOS % 0.2 % (0.0-3.0); ETHYL ALCOHOL (ETHANOL) 0.006 % (0.000-0.010); HEMATOCRIT 35.6 % (36.0-47.0); HEMOGLOBIN 11.5 g/dl (12.0-15.5); LYMPH # 1.3 10^3/uL (1.5-5.0); LYMPH % 24.5 % (24.0-44.0); MEAN CORPUSCULAR HGB CONC 32.3 g/dl (32.0-36.5); MONO # 0.8 10^3/uL (0.0-0.8); NEUTROPHILS # 3.2 10^3/uL (1.5-8.5); NEUTROPHILS % 59.4 % (36.0-66.0); PLATELET COUNT, AUTOMATED 180 10^3/uL (150-450); RED BLOOD COUNT 3.71 10^6/uL (4.00-5.40); WHITE BLOOD COUNT 5.4 10^3/uL (4.0-10.0)
[2022-12-30 00:10] LABS: ALKALINE PHOSPHATASE 108 U/L (46-116); ALT/SGPT 24 U/L (7.0-40); AST/SGOT 33 U/L (<34); BILIRUBIN,DIRECT < 0.1 MG/DL (<0.4); BILIRUBIN,TOTAL 0.2 MG/DL (0.3-1.2); BLOOD UREA NITROGEN 18 MG/DL (9-23); CALCIUM LEVEL 8.8 MG/DL (8.5-10.1); CARBON DIOXIDE LEVEL 26 MMOL/L (20-31); CHLORIDE LEVEL 105 MMOL/L (98-107); CREATININE FOR GFR 0.67 MG/DL (0.55-1.30); GLOMERULAR FILTRATION RATE > 60.0 (>51); GLUCOSE, FASTING 110 MG/DL (60-100); POTASSIUM SERUM 4.6 MMOL/L (3.5-5.1); SALICYLATE LEVEL < 3.0 MG/DL (<30); SODIUM LEVEL 140 MMOL/L (136-145); TOTAL PROTEIN 7.8 G/DL (5.7-8.2)
[2022-12-30 00:12] LABS: THYROID STIMULATING HORMONE 0.996 uIU/ML (0.55-4.78)
[2022-12-30 00:13] LABS: CPK CREATINE PHOSPHOKINASE 81 U/L (34-145); MB/CK RELATIVE INDEX 1.23 (< OR =4)
[2022-12-30 00:16] LABS: RSV AMPLIFICATION NEGATIVE (NEGATIVE)
[2022-12-30 00:19] LABS: AMPHETAMINES LEVEL URINE NEGATIVE (NEGATIVE); BARBITURATES URINE NEGATIVE (NEGATIVE); BENZODIAZEPINES URINE NEGATIVE (NEGATIVE); CANNABINOIDS URINE NEGATIVE (NEGATIVE); COCAINE METABOLITE URINE NEGATIVE (NEGATIVE); METHADONE URINE NEGATIVE (NEGATIVE); OPIATES URINE NEGATIVE (NEGATIVE); PHENCYCLIDINE URINE NEGATIVE (NEGATIVE)
[2022-12-30 00:38] LABS: OSMOLALITY SERUM 299 MOSM/KG (275-295)
[2022-12-30] MEDS ORDERED: ISOVUE-370 76% 100ML VIAL As Ordered ONE (01:51)
[2022-12-30 02:03] LABS: CK-MB VALUE MASS < 1.0 NG/ML (<3.6)
[2022-12-30] MEDS ORDERED: cefTRIAXone SOD 2 GM in D5W MINI-BAG PLUS 50 ML IV ONE (02:35)
[2022-12-30 02:36] LABS: CPK CREATINE PHOSPHOKINASE 62 U/L (34-145); MB/CK RELATIVE INDEX 1.61 (< OR =4)
[2022-12-30] MEDS ORDERED: HOME MED LIST COMPLETE! XX SCH (04:20)
[2022-12-30] MEDS ORDERED: MOM 30ML SUSPENSION UDC PO PRN (04:50)
[2022-12-30] MEDS ORDERED: D5W/0.45% SODIUM CHLORIDE 1,000 ML IV SCH (05:15)
[2022-12-30] MEDS ORDERED: TRIAMCINOLONE ACET 0.1% OINTMENT 15GM TOP PRN (05:15)
[2022-12-30 05:55] VITALS: BP 162/87; TEMP 97.1; O2SAT 96
[2022-12-30] MEDS ORDERED: levETIRAcetam INJection 1,250 MG in D5W 100 ML IV ONE (06:00)
[2022-12-30] MEDS: DOXYCYCLINE HYCLATE 100MG TABLET PO SCH ×2 (06:00→16:56)
[2022-12-30] MEDS: HEPARIN SOD (PORCINE) 5000UNITS/ML 1ML VIAL/SYRINGE SC SCH ×3 (06:16→21:09)
[2022-12-30 07:53] LABS: HEMATOCRIT 31.7 % (36.0-47.0); HEMOGLOBIN 10.1 g/dl (12.0-15.5); MEAN CORPUSCULAR HEMOGLOBIN 31.4 pg (27.0-33.0); MEAN CORPUSCULAR HGB CONC 31.9 g/dl (32.0-36.5); MEAN CORPUSCULAR VOLUME 98.4 fl (80.0-96.0); PLATELET COUNT, AUTOMATED 180 10^3/uL (150-450); RED BLOOD COUNT 3.22 10^6/uL (4.00-5.40); WHITE BLOOD COUNT 3.6 10^3/uL (4.0-10.0)
[2022-12-30 08:00] VITALS: BP 135/78; TEMP 98.2; O2SAT 100
[2022-12-30 08:14] LABS: LDH LACTATE DEHYDROGENASE 145 U/L (120-246)
[2022-12-30 08:22] LABS: PROCALCITONIN <0.04 ng/ml
[2022-12-30 08:33] LABS: ALBUMIN 2.6 G/DL (3.2-5.2); ALKALINE PHOSPHATASE 97 U/L (46-116); ALT/SGPT 19 U/L (7.0-40); AST/SGOT 20 U/L (<34); BILIRUBIN,TOTAL 0.2 MG/DL (0.3-1.2); BLOOD UREA NITROGEN 16 MG/DL (9-23); CALCIUM LEVEL 8.5 MG/DL (8.5-10.1); CARBON DIOXIDE LEVEL 27 MMOL/L (20-31); CHLORIDE LEVEL 109 MMOL/L (98-107); CREATININE FOR GFR 0.65 MG/DL (0.55-1.30); GLOMERULAR FILTRATION RATE > 60.0 (>51); GLUCOSE, FASTING 102 MG/DL (60-100); SODIUM LEVEL 144 MMOL/L (136-145)
[2022-12-30] MEDS ORDERED: PILL CUTTER 1 EACH XX ONE (11:15)
[2022-12-30] MEDS: HYDROXYCHLOROQUINE 200 MG TAB PO SCH ×2 (11:21→21:08)
[2022-12-30] MEDS: DOCUSATE SODIUM 100MG CAPSULE PO SCH ×2 (11:21→21:08)
[2022-12-30] MEDS: amLODIPine 5 MG TAB PO SCH (11:25)
[2022-12-30 12:00] VITALS: BP 157/70; TEMP 98.2; O2SAT 99
[2022-12-30] MEDS ORDERED: levETIRAcetam 250MG TABLET (KEPPRA) PO ONE (13:45)
[2022-12-30 16:00] VITALS: BP 141/81; TEMP 98.4; O2SAT 100
[2022-12-30] MEDS: CEPHALEXIN 500 MG CAP PO SCH ×2 (16:57→21:08)
[2022-12-30] MEDS ORDERED: CEPH500C PO (18:30)
[2022-12-30] MEDS ORDERED: DOXY100T PO (18:30)
[2022-12-30] MEDS ORDERED: COLA100C5 PO (18:30)
[2022-12-30] MEDS ORDERED: LEVE10003 PO (18:30)
[2022-12-30] MEDS ORDERED: KEPP1TAB PO (18:30)
[2022-12-30 20:07] VITALS: BP 147/80; TEMP 99.1; O2SAT 99
[2022-12-30] MEDS ORDERED: levETIRAcetam INJection 1,250 MG in D5W 100 ML IV SCH ×2 (21:00)
[2022-12-30] MEDS ORDERED: levETIRAcetam 250MG TABLET (KEPPRA) PO SCH ×2 (21:00)
[2022-12-30] MEDS ORDERED: DOXEPIN 25 MG CAP PO SCH (21:00)
[2022-12-30] MEDS: GABAPENTIN 400MG CAP PO SCH (21:08)
[2022-12-30] MEDS: levETIRAcetam 250MG TABLET (KEPPRA) PO SCH (21:08)
[2022-12-31 00:19] VITALS: BP 124/72; TEMP 98.1; O2SAT 100
[2022-12-31] MEDS ORDERED: cefTRIAXone SOD 2 GM in D5W MINI-BAG PLUS 50 ML IV SCH (03:00)
[2022-12-31 04:20] VITALS: BP 153/72; TEMP 98; O2SAT 97
[2022-12-31] MEDS ORDERED: CALCIUM CARBONATE 500 MG CHEW U/D PO ONE (05:00)
[2022-12-31] MEDS ORDERED: PANTOPRAZOLE 40MG TAB (PROTONIX) PO ONE (05:00)
[2022-12-31] MEDS: HEPARIN SOD (PORCINE) 5000UNITS/ML 1ML VIAL/SYRINGE SC SCH (05:07)
[2022-12-31] MEDS: DOXYCYCLINE HYCLATE 100MG TABLET PO SCH (05:07)
[2022-12-31 08:01] VITALS: BP 136/76; TEMP 97.9; O2SAT 94
[2022-12-31 08:07] LABS: HEMATOCRIT 31.3 % (36.0-47.0); MEAN CORPUSCULAR HGB CONC 31.9 g/dl (32.0-36.5); MEAN CORPUSCULAR VOLUME 96.9 fl (80.0-96.0); PLATELET COUNT, AUTOMATED 177 10^3/uL (150-450); RED BLOOD COUNT 3.23 10^6/uL (4.00-5.40); WHITE BLOOD COUNT 3.8 10^3/uL (4.0-10.0)
[2022-12-31 08:20] VITALS: BP 136/76
[2022-12-31] MEDS: amLODIPine 5 MG TAB PO SCH (08:20)
[2022-12-31] MEDS: GABAPENTIN 400MG CAP PO SCH (08:20)
[2022-12-31] MEDS: levETIRAcetam 250MG TABLET (KEPPRA) PO SCH (08:20)
[2022-12-31] MEDS: HYDROXYCHLOROQUINE 200 MG TAB PO SCH (08:21)
[2022-12-31] MEDS: DOCUSATE SODIUM 100MG CAPSULE PO SCH (08:21)
[2022-12-31] MEDS: CEPHALEXIN 500 MG CAP PO SCH (08:21)
[2022-12-31 08:42] LABS: ALBUMIN 2.5 G/DL (3.2-5.2); ALKALINE PHOSPHATASE 109 U/L (46-116); ALT/SGPT 28 U/L (7.0-40); AST/SGOT 30 U/L (<34); BILIRUBIN,TOTAL 0.2 MG/DL (0.3-1.2); BLOOD UREA NITROGEN 12 MG/DL (9-23); CALCIUM LEVEL 8.7 MG/DL (8.5-10.1); CARBON DIOXIDE LEVEL 26 MMOL/L (20-31); CHLORIDE LEVEL 108 MMOL/L (98-107); GLOMERULAR FILTRATION RATE > 60.0 (>51); GLUCOSE, FASTING 119 MG/DL (60-100); POTASSIUM SERUM 4.3 MMOL/L (3.5-5.1); SODIUM LEVEL 139 MMOL/L (136-145); TOTAL PROTEIN 6.7 G/DL (5.7-8.2)
[2022-12-31] MEDS ORDERED: FAMOTIDINE 20 MG TAB PO SCH (09:00)
[2022-12-31] MEDS ORDERED: FOLIC ACID 1MG TAB PO SCH (09:00)
== END 2022-12-31 11:45 | disposition home or self-care (01) | DRG 53 ==
LOC: EDBD 23:15 → M ED 23:15 → M ED INP 12-30 04:48 → M PCU 12-30 05:54
PROVIDERS: ADMIT Family Medicine; ATTEND Internal Medicine
PROC: B246ZZZ Ultrasonography of Right and Left Heart (ICD-10-PCS; principal; 2022-12-31)
DX: G40.909 Epilepsy, unspecified, not intractable, without status epilepticus (principal); G93.40 Encephalopathy, unspecified; J18.9 Pneumonia, unspecified organism; M32.9 Systemic lupus erythematosus, unspecified; I10 Essential (primary) hypertension; R29.6 Repeated falls; R26.81 Unsteadiness on feet; R53.1 Weakness; Z98.84 Bariatric surgery status; Z79.899 Other long term (current) drug therapy; Z88.0 Allergy status to penicillin

== ENCOUNTER 2023-05-14 18:39 | Emergency (ER) | payer MEDICAID, OTHER ==
[~2023-05-14] VITALS: Ht 162.6 cm; Wt 63.6 kg
[~2023-05-14 18:39] MED LIST changes: +CEFD1CAP9 PO; -CEFD300C42 PO; +CEPH500C PO; +COLA100C5 PO
[2023-05-14 20:34] LABS: BASO % 0.2 % (0.0-1.0); EOS % 0.2 % (0.0-3.0); HEMATOCRIT 35.7 % (36.0-47.0); HEMOGLOBIN 12.3 g/dl (12.0-15.5); LYMPH # 0.9 10^3/uL (1.5-5.0); LYMPH % 21.5 % (24.0-44.0); MEAN CORPUSCULAR HEMOGLOBIN 32.5 pg (27.0-33.0); MEAN CORPUSCULAR HGB CONC 34.5 g/dl (32.0-36.5); MEAN CORPUSCULAR VOLUME 94.4 fl (80.0-96.0); MONO # 0.6 10^3/uL (0.0-0.8); MONO % 14.2 % (2.0-8.0); NEUTROPHILS # 2.6 10^3/uL (1.5-8.5); NEUTROPHILS % 63.4 % (36.0-66.0); PLATELET COUNT, AUTOMATED 201 10^3/uL (150-450); RED BLOOD COUNT 3.78 10^6/uL (4.00-5.40); WHITE BLOOD COUNT 4.1 10^3/uL (4.0-10.0)
[2023-05-14 20:41] LABS: C REACTIVE PROTEIN QUANTITATIV < 0.40 MG/DL (<1.0); ERYTHROCYTE SEDIMENTATION RATE 86 mm/hr (0-30)
[2023-05-14 20:44] LABS: BLOOD UREA NITROGEN 19 MG/DL (9-23); CARBON DIOXIDE LEVEL 22 MMOL/L (20-31); CHLORIDE LEVEL 107 MMOL/L (98-107); CREATININE FOR GFR 0.57 MG/DL (0.55-1.30); GLOMERULAR FILTRATION RATE > 60.0 (>51); GLUCOSE, FASTING 98 MG/DL (60-100); POTASSIUM SERUM 4.5 MMOL/L (3.5-5.1); SODIUM LEVEL 134 MMOL/L (136-145)
[2023-05-14] MEDS: methylPREDNISolone 1,000 MG, VIAL MATE ADAPTER 1 EACH in NS 250 ML IV ONE (20:47)
[2023-05-14 21:47] LABS: PROCALCITONIN <0.04 ng/ml
[2023-05-14] MEDS: NS 1,000 ML IV ONE (21:49)
[2023-05-14] MEDS: ONDANSETRON 4MG 2ML VIAL IV ONE (21:51)
[2023-05-14] MEDS: MORPHINE 4 MG/ML 1ML VIAL IV ONE (21:51)
[2023-05-14] MEDS ORDERED: ALBU8.5H INH (23:06)
[2023-05-14] MEDS ORDERED: XALA0.007 OU (23:06)
[2023-05-14] MEDS ORDERED: GABA-284 PO (23:07)
[2023-05-14] MEDS ORDERED: HOME MED LIST COMPLETE! XX SCH (23:10)
[2023-05-14 23:33] LABS: RSV AMPLIFICATION NEGATIVE (NEGATIVE)
[2023-05-14] MEDS: MORPHINE 2 MG/ML 1ML VIAL IV ONE (23:58)
[2023-05-15] MEDS ORDERED: ALBUTEROL 90 MCG/ACT 8GM HFA INHALER INH PRN
[2023-05-15] MEDS ORDERED: TRIAMCINOLONE ACET 0.1% OINTMENT 80GM TOP PRN
[2023-05-15 00:54] VITALS: BP 189/98; TEMP 98.6; O2SAT 100
[2023-05-15] MEDS: NS 1,000 ML IV SCH (00:55)
[2023-05-15] MEDS ORDERED: FAMOTIDINE 20 MG TAB PO SCH (09:00)
[2023-05-15] MEDS ORDERED: levETIRAcetam 250MG TABLET (KEPPRA) PO SCH (09:00)
[2023-05-15] MEDS ORDERED: GABAPENTIN 400MG CAP PO SCH (09:00)
[2023-05-15] MEDS ORDERED: methylPREDNISolone 1,000 MG, VIAL MATE ADAPTER 1 EACH in NS 250 ML IV SCH (20:00)
[2023-05-15] MEDS ORDERED: DOXEPIN 25 MG CAP PO SCH (21:00)
[2023-05-15] MEDS ORDERED: LATANOPROST 0.005% OPHTH SOLN 2.5 ML OU SCH (21:00)
== END 2023-05-15 01:00 | disposition short-term general hospital (02) ==
LOC: M ED 18:39
DX: M32.9 Systemic lupus erythematosus, unspecified (principal); E11.9 Type 2 diabetes mellitus without complications; I10 Essential (primary) hypertension; E78.5 Hyperlipidemia, unspecified; F41.9 Anxiety disorder, unspecified; F32.A Depression, unspecified; J45.909 Unspecified asthma, uncomplicated; K21.9 Gastro-esophageal reflux disease without esophagitis; G40.919 Epilepsy, unspecified, intractable, without status epilepticus; F17.210 Nicotine dependence, cigarettes, uncomplicated; Z88.0 Allergy status to penicillin; Z79.51 Long term (current) use of inhaled steroids; Z79.899 Other long term (current) drug therapy
CPT/HCPCS: 80048; 84145; 85025; 85652; 86140; 87631; 96361; 96365; 96374; 96375; 96376; 99284; J2405; J2930

== ENCOUNTER → 2023-05-24 | Outpatient (REF) | payer OTHER ==
[~2023-05-24] MED LIST changes: +ALBU8.5H INH; +XALA0.007 OU
[2023-05-24 17:19] LABS: BASO % 0.2 % (0.0-1.0); EOS # 0.1 10^3/uL (0.0-0.5); EOS % 0.9 % (0.0-3.0); HEMATOCRIT 33.7 % (36.0-47.0); HEMOGLOBIN 10.9 g/dl (12.0-15.5); LYMPH # 1.3 10^3/uL (1.5-5.0); LYMPH % 23.5 % (24.0-44.0); MEAN CORPUSCULAR HEMOGLOBIN 32.3 pg (27.0-33.0); MEAN CORPUSCULAR HGB CONC 32.3 g/dl (32.0-36.5); MONO # 0.5 10^3/uL (0.0-0.8); MONO % 8.4 % (2.0-8.0); NEUTROPHILS # 3.5 10^3/uL (1.5-8.5); NEUTROPHILS % 66.1 % (36.0-66.0); PLATELET COUNT, AUTOMATED 239 10^3/uL (150-450); RED BLOOD COUNT 3.37 10^6/uL (4.00-5.40); WHITE BLOOD COUNT 5.4 10^3/uL (4.0-10.0)
[2023-05-24 17:34] LABS: INR 0.94; PROTHROMBIN TIME 12.3 SECONDS (12.5-14.5)
[2023-05-24 17:51] LABS: ALBUMIN 2.9 G/DL (3.2-5.2); ALKALINE PHOSPHATASE 90 U/L (46-116); ALT/SGPT 37 U/L (7.0-40); AST/SGOT 37 U/L (<34); BILIRUBIN,TOTAL 0.2 MG/DL (0.3-1.2); BLOOD UREA NITROGEN 15 MG/DL (9-23); CARBON DIOXIDE LEVEL 29 MMOL/L (20-31); CHLORIDE LEVEL 106 MMOL/L (98-107); CREATININE FOR GFR 0.65 MG/DL (0.55-1.30); GLOMERULAR FILTRATION RATE > 60.0 (>51); GLUCOSE, FASTING 87 MG/DL (60-100); POTASSIUM SERUM 4.9 MMOL/L (3.5-5.1); SODIUM LEVEL 137 MMOL/L (136-145); TOTAL PROTEIN 7.5 G/DL (5.7-8.2)
[2023-05-24 17:58] LABS: HEPATITIS B SURFACE ANTIBODY NEGATIVE (POSITIVE)
[2023-05-24 18:23] LABS: HIV 1&2 SCREEN NEGATIVE (NEGATIVE)
[2023-05-25 16:09] LABS: CALCIUM LEVEL 9.4 MG/DL (8.5-10.1)
== END ==
LOC: M LAB REF 16:13
PROVIDERS: ATTEND Family Medicine Addiction Medicine
DX: B18.2 Chronic viral hepatitis C (principal)

== ENCOUNTER → 2023-06-09 | Outpatient (REF) | payer OTHER | LOC: M SFHCDERM 09:52 | PROVIDERS: ATTEND Dermatology | DX: L93.0 Discoid lupus erythematosus (principal) ==

== ENCOUNTER → 2023-06-21 | Outpatient (CLI) | payer OTHER | LOC: M PLALAB 11:44 | PROVIDERS: ATTEND Internal Medicine Infectious Disease | DX: B18.2 Chronic viral hepatitis C (principal) ==

== ENCOUNTER → 2023-08-25 | Outpatient (REF) | payer OTHER | LOC: M SFHCDERM 19:34 | PROVIDERS: ATTEND Physician Assistant | DX: Z53.9 Procedure and treatment not carried out, unspecified reason (principal) ==

== ENCOUNTER 2023-09-21 16:26 | Observation (INO) | payer OTHER ==
[~2023-09-21] VITALS: Ht 162.6 cm; Wt 84.5 kg
[2023-09-21 19:22] LABS: BASO % 0.2 % (0.0-1.0); EOS % 0.4 % (0.0-3.0); HEMATOCRIT 37.6 % (36.0-47.0); HEMOGLOBIN 11.9 g/dl (12.0-15.5); LYMPH # 1.3 10^3/uL (1.5-5.0); MEAN CORPUSCULAR HEMOGLOBIN 29.2 pg (27.0-33.0); MEAN CORPUSCULAR HGB CONC 31.6 g/dl (32.0-36.5); MEAN CORPUSCULAR VOLUME 92.4 fl (80.0-96.0); MONO # 0.4 10^3/uL (0.0-0.8); MONO % 8.4 % (2.0-8.0); NEUTROPHILS # 3.4 10^3/uL (1.5-8.5); NEUTROPHILS % 65.2 % (36.0-66.0); PLATELET COUNT, AUTOMATED 136 10^3/uL (150-450); RED BLOOD COUNT 4.07 10^6/uL (4.00-5.40); WHITE BLOOD COUNT 5.3 10^3/uL (4.0-10.0)
[2023-09-21 19:31] LABS: BLOOD UREA NITROGEN 11 MG/DL (9-23); CALCIUM LEVEL 8.5 MG/DL (8.5-10.1); CARBON DIOXIDE LEVEL 29 MMOL/L (20-31); CHLORIDE LEVEL 109 MMOL/L (98-107); CREATININE FOR GFR 0.68 MG/DL (0.55-1.30); GLOMERULAR FILTRATION RATE > 60.0 (>51); GLUCOSE, FASTING 102 MG/DL (60-100); POTASSIUM SERUM 3.9 MMOL/L (3.5-5.1); SODIUM LEVEL 140 MMOL/L (136-145)
[2023-09-21 19:44] LABS: CK-MB VALUE MASS < 1.0 NG/ML (<3.6)
[2023-09-21 19:46] LABS: CPK CREATINE PHOSPHOKINASE 39 U/L (34-145); MB/CK RELATIVE INDEX 2.56 (< OR =4)
[2023-09-21] MEDS: LABETALOL 100MG/20ML VIAL IV STA (19:46)
[2023-09-21] MEDS ORDERED: MOM 30ML SUSPENSION UDC PO PRN (21:40)
[2023-09-21] MEDS ORDERED: KEPP1TAB PO (22:10)
[2023-09-21] MEDS ORDERED: FAMO20TA4 PO (22:10)
[2023-09-21] MEDS ORDERED: CYCL100C5 PO (22:10)
[2023-09-21] MEDS ORDERED: PRED20TA PO (22:10)
[2023-09-21] MEDS ORDERED: HOME MED LIST COMPLETE! XX SCH (22:15)
[2023-09-21 22:49] LABS: ERYTHROCYTE SEDIMENTATION RATE 91 mm/hr (0-30)
[2023-09-21] MEDS ORDERED: PROHANCE 279.3MG/ML 5ML VIAL As Ordered ONE (22:50)
[2023-09-21] MEDS ORDERED: PROHANCE 279.3MG/ML 15ML VIAL As Ordered ONE (22:50)
[2023-09-22] MEDS ORDERED: DOXEPIN 25 MG CAP PO PRN (00:15)
[2023-09-22] MEDS ORDERED: TRIAMCINOLONE ACET 0.1% OINTMENT 15GM TOP PRN (00:15)
[2023-09-22] MEDS ORDERED: ALBUTEROL 90 MCG/ACT 8GM HFA INHALER INH PRN (00:15)
[2023-09-22] MEDS: DOXEPIN 25 MG CAP PO SCH (00:56)
[2023-09-22] MEDS: levETIRAcetam 250MG TABLET (KEPPRA) PO SCH (00:56)
[2023-09-22] MEDS: GABAPENTIN 400MG CAP PO SCH (00:57)
[2023-09-22] MEDS: LABETALOL 100MG/20ML VIAL IV PRN (01:13)
[2023-09-22] MEDS: hydrALAZINE 20MG/ML 1ML VIAL IV STA (03:33)
[2023-09-22] MEDS ORDERED: ISOVUE-370 76% 100ML VIAL As Ordered ONE (03:34)
[2023-09-22] MEDS: NITROGLYCERIN 2% OINT 1 GM *U/D* PKT TOP ONE (06:35)
[2023-09-22] MEDS: traMADol 50 MG TAB PO ONE (06:50)
[2023-09-22 07:58] LABS: HEMATOCRIT 37.7 % (36.0-47.0); HEMOGLOBIN 12.1 g/dl (12.0-15.5); MEAN CORPUSCULAR HEMOGLOBIN 29.2 pg (27.0-33.0); MEAN CORPUSCULAR HGB CONC 32.1 g/dl (32.0-36.5); MEAN CORPUSCULAR VOLUME 90.8 fl (80.0-96.0); PLATELET COUNT, AUTOMATED 133 10^3/uL (150-450); RED BLOOD COUNT 4.15 10^6/uL (4.00-5.40); WHITE BLOOD COUNT 7.2 10^3/uL (4.0-10.0)
[2023-09-22 08:18] LABS: COMPLEMENT C3 151.6 MG/DL (90.0-170.0); COMPLEMENT C4 30.8 MG/DL (12-36)
[2023-09-22 08:32] LABS: BLOOD UREA NITROGEN 11 MG/DL (9-23); CALCIUM LEVEL 8.6 MG/DL (8.5-10.1); CARBON DIOXIDE LEVEL 24 MMOL/L (20-31); CHLORIDE LEVEL 107 MMOL/L (98-107); CREATININE FOR GFR 0.61 MG/DL (0.55-1.30); GLOMERULAR FILTRATION RATE > 60.0 (>51); GLUCOSE, FASTING 117 MG/DL (60-100); MAGNESIUM LEVEL 1.7 MG/DL (1.8-2.4); POTASSIUM SERUM 3.6 MMOL/L (3.5-5.1); SODIUM LEVEL 136 MMOL/L (136-145)
[2023-09-22] MEDS ORDERED: levETIRAcetam 250MG TABLET (KEPPRA) PO SCH (09:00)
[2023-09-22] MEDS ORDERED: amLODIPine 5 MG TAB PO SCH (09:00)
[2023-09-22] MEDS ORDERED: LIDOCAINE 1% MDV 20ML VIAL As Ordered ONE (09:43)
[2023-09-22] MEDS: NITROGLYCERIN 2% OINT 1 GM *U/D* PKT TOP SCH (10:41)
[2023-09-22] MEDS: ENOXAPARIN 40MG/0.4ML SYRINGE (J1650 PER 10MG) SC SCH (10:41)
[2023-09-22] MEDS: FAMOTIDINE 20 MG TAB PO SCH (10:42)
[2023-09-22] MEDS: predniSONE 20 MG TAB PO SCH (10:42)
[2023-09-22] MEDS: CYANOCOBALAMIN 500 MCG TAB PO SCH (10:43)
[2023-09-22] MEDS: predniSONE 20 MG TAB PO ONE (14:36)
[2023-09-22] MEDS: MAG SULF 1GM/100ML (MAG RUN) 1 GM in IV 1 EA IV SCH (14:36)
[2023-09-22] MEDS: ACETAMINOPHEN TAB 650MG DOSE (2X325MG) PO PRN (14:37)
[2023-09-22 14:56] LABS: ERYTHROCYTE SEDIMENTATION RATE 99 mm/hr (0-30)
[2023-09-22 17:55] VITALS: BP 145/85; TEMP 97.9; O2SAT 99
[2023-09-22 20:00] VITALS: BP 132/82; TEMP 97.5; O2SAT 99
[2023-09-23 05:00] VITALS: BP 140/84; TEMP 97.5; O2SAT 96
[2023-09-23 06:15] LABS: HEMATOCRIT 37.1 % (36.0-47.0); LYMPH # 0.8 10^3/uL (1.5-5.0); LYMPH % 25.6 % (24.0-44.0); MEAN CORPUSCULAR HGB CONC 32.3 g/dl (32.0-36.5); MEAN CORPUSCULAR VOLUME 89.6 fl (80.0-96.0); MONO # 0.3 10^3/uL (0.0-0.8); MONO % 8.9 % (2.0-8.0); NEUTROPHILS % 64.9 % (36.0-66.0); PLATELET COUNT, AUTOMATED 151 10^3/uL (150-450); RED BLOOD COUNT 4.14 10^6/uL (4.00-5.40); WHITE BLOOD COUNT 3.1 10^3/uL (4.0-10.0)
[2023-09-23 06:36] LABS: BLOOD UREA NITROGEN 19 MG/DL (9-23); CALCIUM LEVEL 8.7 MG/DL (8.5-10.1); CARBON DIOXIDE LEVEL 23 MMOL/L (20-31); CHLORIDE LEVEL 106 MMOL/L (98-107); CREATININE FOR GFR 0.73 MG/DL (0.55-1.30); GLOMERULAR FILTRATION RATE > 60.0 (>51); GLUCOSE, FASTING 111 MG/DL (60-100); MAGNESIUM LEVEL 2.5 MG/DL (1.8-2.4); POTASSIUM SERUM 3.8 MMOL/L (3.5-5.1); SODIUM LEVEL 136 MMOL/L (136-145)
[2023-09-23 06:57] LABS: ERYTHROCYTE SEDIMENTATION RATE 88 mm/hr (0-30)
[2023-09-23 09:24] VITALS: BP 140/91
[2023-09-23] MEDS: predniSONE 20 MG TAB PO SCH (09:24)
[2023-09-23 11:28] VITALS: BP 119/75; TEMP 97.9; O2SAT 97
[2023-09-23] MEDS ORDERED: PRED20TA PO (12:44)
[2023-09-29 20:47] LABS: ANTI DS-DNA AB NEGATIVE (NEGATIVE)
== END 2023-09-23 15:34 | disposition home or self-care (01) ==
LOC: M ED 16:26 → EDBD 16:26 → M ED INP 21:39 → INTOOBSV 09-22 04:27 → OBSVTOIN 09-22 04:27 → M MSPAV 09-22 17:57
PROVIDERS: ADMIT Internal Medicine; ATTEND Hospitalist
DX: I16.0 Hypertensive urgency (principal); R51.9 Headache, unspecified; M54.2 Cervicalgia; R06.02 Shortness of breath; L93.0 Discoid lupus erythematosus; D47.2 Monoclonal gammopathy; D69.6 Thrombocytopenia, unspecified; G40.909 Epilepsy, unspecified, not intractable, without status epilepticus; K21.9 Gastro-esophageal reflux disease without esophagitis; M19.90 Unspecified osteoarthritis, unspecified site; I10 Essential (primary) hypertension; G89.29 Other chronic pain; E78.5 Hyperlipidemia, unspecified; F41.1 Generalized anxiety disorder; E55.9 Vitamin D deficiency, unspecified; K91.2 Postsurgical malabsorption, not elsewhere classified; Z98.84 Bariatric surgery status; F43.10 Post-traumatic stress disorder, unspecified; E11.40 Type 2 diabetes mellitus with diabetic neuropathy, unspecified; M35.00 Sjogren syndrome, unspecified; J30.9 Allergic rhinitis, unspecified; F51.5 Nightmare disorder; M46.1 Sacroiliitis, not elsewhere classified; F17.200 Nicotine dependence, unspecified, uncomplicated; Z90.711 Acquired absence of uterus with remaining cervical stump; Z90.89 Acquired absence of other organs; Z98.890 Other specified postprocedural states; Z82.41 Family history of sudden cardiac death; Z83.3 Family history of diabetes mellitus; Z80.41 Family history of malignant neoplasm of ovary; Z80.3 Family history of malignant neoplasm of breast; Z88.0 Allergy status to penicillin; Z79.899 Other long term (current) drug therapy; Z79.52 Long term (current) use of systemic steroids; Z87.891 Personal history of nicotine dependence
CPT/HCPCS: 36415; 36573; 70450; 70496; 70498; 70544; 70547; 70553; 71045; 80048; 82550; 82553; 83735; 84484; 85025; 85027; 85652; 86140; 86160; 86255; 87486; 87581; 87633; 87798; 93005; 96365; 96372; 96375; 96376; 99285; A9576; C1751; J0360; J1650; J1920; J3475; J7512; Q9967

== ENCOUNTER → 2023-10-05 | Outpatient (REF) | payer OTHER ==
[~2023-10-05] MED LIST changes: +CYCL100C5 PO; +FAMO20TA4 PO; +PRED20TA PO
== END ==
LOC: M SFHCDERM 16:35
PROVIDERS: ATTEND Physician Assistant
DX: L93.0 Discoid lupus erythematosus (principal); Z79.899 Other long term (current) drug therapy; Z53.9 Procedure and treatment not carried out, unspecified reason

== ENCOUNTER → 2023-11-03 | Outpatient (CLI) | payer OTHER ==
[~2023-11-03] MED LIST changes: +GABA-1490 PO; +GABA-1635 PO; -GABA600T4 PO; -GABA800T4 PO
[2023-11-03 11:56] LABS: HEMOGLOBIN 11.8 g/dl (12.0-15.5); MEAN CORPUSCULAR HEMOGLOBIN 29.4 pg (27.0-33.0); MEAN CORPUSCULAR HGB CONC 31.9 g/dl (32.0-36.5); PLATELET COUNT, AUTOMATED 202 10^3/uL (150-450); RED BLOOD COUNT 4.02 10^6/uL (4.00-5.40); WHITE BLOOD COUNT 4.8 10^3/uL (4.0-10.0)
[2023-11-03 12:09] LABS: ALBUMIN 2.9 G/DL (3.2-5.2); ALKALINE PHOSPHATASE 108 U/L (46-116); ALT/SGPT 12 U/L (7.0-40); AST/SGOT 12 U/L (<34); BILIRUBIN,TOTAL 0.2 MG/DL (0.3-1.2); BLOOD UREA NITROGEN 8 MG/DL (9-23); CALCIUM LEVEL 8.9 MG/DL (8.5-10.1); CARBON DIOXIDE LEVEL 26 MMOL/L (20-31); CHLORIDE LEVEL 111 MMOL/L (98-107); CHOLESTEROL LEVEL 199 MG/DL (<200); CHOLESTEROL RISK RATIO 2.65 (<5); CREATININE FOR GFR 0.76 MG/DL (0.55-1.30); GLOMERULAR FILTRATION RATE > 60.0 (>51); GLUCOSE, FASTING 70 MG/DL (60-100); LDL CHOLESTEROL 102.2 MG/DL (<100); POTASSIUM SERUM 3.9 MMOL/L (3.5-5.1); SODIUM LEVEL 141 MMOL/L (136-145); TOTAL PROTEIN 7.3 G/DL (5.7-8.2); TRIGLYCERIDES LEVEL 109 MG/DL (<150)
[2023-11-03 12:12] LABS: HEMOGLOBIN A1c 5.9 % (4.0-6.0)
[2023-11-03 12:13] LABS: FREE T4 1.02 NG/DL (0.89-1.76); THYROID STIMULATING HORMONE 0.846 uIU/ML (0.55-4.78)
== END ==
LOC: M RAD 10:42
PROVIDERS: ATTEND Family Medicine Addiction Medicine
DX: M54.50 Low back pain, unspecified (principal)

== ENCOUNTER → 2023-11-03 | Outpatient (CLI) | payer OTHER ==
[2023-11-07 23:23] LABS: G6PD ADULT 14.4 U/g Hgb (7.0-20.5)
== END ==
LOC: M LAB 10:39
PROVIDERS: ATTEND Physician Assistant
DX: L93.0 Discoid lupus erythematosus (principal)

== ENCOUNTER → 2023-11-03 | Outpatient (CLI) | payer OTHER ==
[2023-11-03 12:08] LABS: ALKALINE PHOSPHATASE 105 U/L (46-116); ALT/SGPT 13 U/L (7.0-40); AST/SGOT 13 U/L (<34); BILIRUBIN,DIRECT < 0.1 MG/DL (<0.4); BILIRUBIN,TOTAL 0.2 MG/DL (0.3-1.2); TOTAL PROTEIN 7.3 G/DL (5.7-8.2)
[2023-11-05 16:37] LABS: HEPATITIS C VIRUS ABY INDEX > 11.00 INDEX (<0.8)
[2023-11-08 11:27] LABS: HCV RNA QUANTITATION <15 NOT DETECTED IU/mL (NOT DETECTED); HCV RNA log10 <1.18 NOT DETECTED Log IU/mL (NOT DETECTED)
== END ==
LOC: M LAB 10:36
PROVIDERS: ATTEND Internal Medicine Infectious Disease
DX: B18.2 Chronic viral hepatitis C (principal)

== ENCOUNTER 2024-04-21 | Emergency (ER) | payer OTHER ==
[~2024-04-21] VITALS: Ht 162.6 cm; Wt 73.6 kg
[~2024-04-21] MED LIST changes: -CYCL5TAB PO; +CYCL5TAB4 PO
[2024-04-21] MEDS: ACETAMINOPH W/CODEINE #3 TAB UD PO ONE (07:08)
[2024-04-21 09:12] VITALS: BP 151/78; TEMP 98; O2SAT 97
== END 2024-04-21 09:18 | disposition home or self-care (01) ==
LOC: M ED
DX: L93.0 Discoid lupus erythematosus (principal); E11.9 Type 2 diabetes mellitus without complications; F31.9 Bipolar disorder, unspecified; I10 Essential (primary) hypertension; Z88.0 Allergy status to penicillin; Z79.51 Long term (current) use of inhaled steroids; Z79.52 Long term (current) use of systemic steroids; Z79.899 Other long term (current) drug therapy

== ENCOUNTER 2024-04-25 12:51 | Emergency (ER) | payer OTHER ==
[2024-04-25] MEDS: NS (Normal Saline) 0.9% 1,000 ML IV ONE (13:20)
[2024-04-25 13:38] LABS: HEMATOCRIT 37.1 % (36.0-47.0); HEMOGLOBIN 12.2 g/dl (12.0-15.5); LYMPH # 0.6 10^3/uL (1.5-5.0); LYMPH % 12.6 % (24.0-44.0); MEAN CORPUSCULAR HEMOGLOBIN 31.9 pg (27.0-33.0); MEAN CORPUSCULAR HGB CONC 32.9 g/dl (32.0-36.5); MEAN CORPUSCULAR VOLUME 96.9 fl (80.0-96.0); MONO # 0.4 10^3/uL (0.0-0.8); MONO % 7.9 % (2.0-8.0); NEUTROPHILS # 3.7 10^3/uL (1.5-8.5); NEUTROPHILS % 78.9 % (36.0-66.0); PLATELET COUNT, AUTOMATED 249 10^3/uL (150-450); RED BLOOD COUNT 3.83 10^6/uL (4.00-5.40); WHITE BLOOD COUNT 4.7 10^3/uL (4.0-10.0)
[2024-04-25 13:55] LABS: INR 0.87; PARTIAL THROMBOPLASTIN TIME 26.9 SECONDS (24.8-34.2); PROTHROMBIN TIME 12.1 SECONDS (12.5-14.5)
[2024-04-25 14:09] LABS: C REACTIVE PROTEIN QUANTITATIV 2.5 MG/DL (<1.0)
[2024-04-25] MEDS: [UNRECOGNIZED DRUG - OTHER] IV ONE (14:10)
[2024-04-25] MEDS: NS 0.9% IV ONE (14:10)
[2024-04-25] MEDS: metroNIDAZOLE 500 MG in IV 1 EA IV ONE (14:10)
[2024-04-25 14:11] LABS: APPEARANCE, URINE CLEAR (CLEAR); BACTERIA, URINE AUTO NEGATIVE (NEGATIVE); BILIRUBIN, URINE AUTO NEGATIVE (NEGATIVE); BLOOD, URINE BLOOD NEGATIVE (NEGATIVE); COLOR, URINE YELLOW (YELLOW); GLUCOSE, URINE (UA) AUTO NEGATIVE (NEGATIVE); KETONE, URINE AUTO TRACE mg/dL (NEGATIVE); LEUKOCYTE ESTERASE, URINE AUTO NEGATIVE (NEGATIVE); NITRITE, URINE AUTO NEGATIVE (NEGATIVE); PROTEIN, URINE AUTO 2+ mg/dL (NEGATIVE); RBC, URINE AUTO 0 /HPF (0-3); SPECIFIC GRAVITY URINE AUTO 1.011 (1.002-1.035); SQUAMOUS EPITHELIAL CELL UR AU 0 /HPF (0-6); WBC, URINE AUTO 0 /HPF (0-3)
[2024-04-25 14:12] LABS: THYROID STIMULATING HORMONE 0.911 uIU/ML (0.55-4.78)
[2024-04-25 14:16] LABS: PROCALCITONIN 0.35 ng/ml
[2024-04-25] MEDS: CEFEPIME HCL 2 GM in DEXTROSE 5% (D5W) ADV/MINI-BAG 50 ML IV ONE (14:20)
[2024-04-25] MEDS ORDERED: ISOVUE-370 76% 100ML VIAL As Ordered ONE (14:27)
[2024-04-25] MEDS: MORPHINE 4 MG/ML 1ML VIAL IV ONE (15:20)
[2024-04-25 15:28] LABS: ALBUMIN 2.5 G/DL (3.2-5.2); ALKALINE PHOSPHATASE 59 U/L (35-104); ALT/SGPT < 9 U/L (7.0-40); AST/SGOT 16 U/L (<34); BILIRUBIN,DIRECT 0.2 MG/DL (<0.4); BILIRUBIN,TOTAL 0.4 MG/DL (0.3-1.2); BLOOD UREA NITROGEN 13 MG/DL (9-23); CARBON DIOXIDE LEVEL 23 MMOL/L (20-31); CHLORIDE LEVEL 97 MMOL/L (98-107); CREATININE FOR GFR 0.98 MG/DL (0.55-1.30); GLOMERULAR FILTRATION RATE > 60.0 (>51); GLUCOSE, FASTING 125 MG/DL (60-100); POTASSIUM SERUM 3.4 MMOL/L (3.5-5.1); SODIUM LEVEL 129 MMOL/L (136-145); TOTAL PROTEIN 6.2 G/DL (5.7-8.2)
[2024-04-25] MEDS: NS (Normal Saline) 0.9% 1,000 ML IV SCH (16:35)
[2024-04-25] MEDS: PANTOPRAZOLE 40MG VIAL IV ONE (16:38)
[2024-04-25] MEDS: PANTOPRAZOLE SODIUM 40 MG in D5W 50 ML IV SCH (16:39)
[2024-04-25] MEDS: FLUCONAZOLE 400 MG in IV 1 EA IV ONE (17:16)
[2024-04-25 18:00] VITALS: BP 162/80; TEMP 97.8; O2SAT 96
== END 2024-04-25 18:16 | disposition short-term general hospital (02) ==
LOC: M ED 12:51 → EDBD 12:51 → M ED 18:16
DX: K63.1 Perforation of intestine (nontraumatic) (principal); A41.9 Sepsis, unspecified organism; R00.0 Tachycardia, unspecified; E11.9 Type 2 diabetes mellitus without complications; B18.2 Chronic viral hepatitis C; I10 Essential (primary) hypertension; E78.5 Hyperlipidemia, unspecified; Z88.0 Allergy status to penicillin; Z79.51 Long term (current) use of inhaled steroids; Z79.52 Long term (current) use of systemic steroids; Z79.899 Other long term (current) drug therapy
CPT/HCPCS: 36415; 71045; 74177; 80047; 80048; 80076; 81001; 82150; 83605; 84145; 84443; 85025; 85610; 85730; 86140; 86850; 86900; 86901; 87040; 87086; 87486; 87581; 87633; 87798; 93005; 93041; 94760; 96361; 96365; 96366; 96375; 99291; 99292; J0692; J1450; J1836; J2470; Q9967

== ENCOUNTER → 2024-07-04 | Outpatient (REF) | payer OTHER ==
[2024-07-04 12:45] LABS: BASO % 0.3 % (0.0-1.0); EOS % 0.5 % (0.0-3.0); HEMATOCRIT 38.8 % (36.0-47.0); HEMOGLOBIN 11.9 g/dl (12.0-15.5); LYMPH # 2.1 10^3/uL (1.5-5.0); LYMPH % 54.5 % (24.0-44.0); MEAN CORPUSCULAR HEMOGLOBIN 28.2 pg (27.0-33.0); MEAN CORPUSCULAR HGB CONC 30.7 g/dl (32.0-36.5); MEAN CORPUSCULAR VOLUME 91.9 fl (80.0-96.0); MONO # 0.5 10^3/uL (0.0-0.8); MONO % 11.9 % (2.0-8.0); NEUTROPHILS # 1.3 10^3/uL (1.5-8.5); NEUTROPHILS % 32.5 % (36.0-66.0); PLATELET COUNT, AUTOMATED 189 10^3/uL (150-450); RED BLOOD COUNT 4.22 10^6/uL (4.00-5.40); WHITE BLOOD COUNT 3.9 10^3/uL (4.0-10.0)
== END ==
LOC: M LAB REF 11:47
PROVIDERS: ATTEND Internal Medicine
DX: L93.0 Discoid lupus erythematosus (principal)

== ENCOUNTER 2024-08-24 20:50 | Inpatient (IN) | payer OTHER, MEDICAID ==
[~2024-08-24] VITALS: Ht 160 cm; Wt 60.5 kg
[~2024-08-24 20:50] MED LIST changes: +DAPS25TA2 PO; +LISI40TA10 PO; +MISO200T83 PO; +PANT-23 PO; +SUCR1TAB56 PO
[2024-08-24] MEDS: NS (Normal Saline) 0.9% 1,000 ML IV ONE (22:33)
[2024-08-24 22:43] LABS: BASO # 0.0 10^3/uL (0.0-0.2); BASO % 0.1 % (0.0-1.0); EOS # 0.0 10^3/uL (0.0-0.5); EOS % 0.0 % (0.0-3.0); LYMPH # 1.0 10^3/uL (1.5-5.0); LYMPH % 9.2 % (24.0-44.0); MONO # 0.7 10^3/uL (0.0-0.8); MONO % 6.5 % (2.0-8.0); NEUTROPHILS # 9.4 10^3/uL (1.5-8.5); NEUTROPHILS % 83.3 % (36.0-66.0); PLATELET COUNT, AUTOMATED 190 10^3/uL (150-450)
[2024-08-24 23:03] LABS: ALT/SGPT 38.0 U/L (7.0-40); AST/SGOT 86.0 U/L (<34); CALCIUM LEVEL 8.0 MG/DL (8.5-10.1); CARBON DIOXIDE LEVEL 19.0 MMOL/L (20-31); CHLORIDE LEVEL 110.0 MMOL/L (98-107); CREATININE FOR GFR 0.89 MG/DL (0.55-1.30); GLOMERULAR FILTRATION RATE 74.6 (>51); POTASSIUM SERUM 4.1 MMOL/L (3.5-5.1); SODIUM LEVEL 142.0 MMOL/L (136-145)
[2024-08-25 00:24] LABS: MAGNESIUM LEVEL 1.9 MG/DL (1.8-2.4)
[2024-08-25] MEDS ORDERED: ISOVUE-370 76% 100 ML VIAL As Ordered ONE (00:43)
[2024-08-25] MEDS: ONDANSETRON 4MG 2ML VIAL IV ONE (01:14)
[2024-08-25] MEDS: NS 500 ML IV ONE (01:17)
[2024-08-25 01:21] LABS: CPK CREATINE PHOSPHOKINASE 79.0 U/L (34-145)
[2024-08-25] MEDS: METOPROLOL 5 MG/5 ML VIAL IV SCH (04:07)
[2024-08-25] MEDS ORDERED: PROHANCE 279.3MG/ML 15ML VIAL As Ordered ONE (07:16)
[2024-08-25] MEDS ORDERED: NALOXONE INJ 0.4MG/1ML VIAL IV PRN (07:35)
[2024-08-25] MEDS: SODIUM BICARBONATE 325 MG TAB PO ONE (08:58)
[2024-08-25] MEDS: CETIRIZINE 10 MG TAB PO ONE (08:58)
[2024-08-25] MEDS: MONTELUKAST 10 MG TAB PO SCH (08:58)
[2024-08-25] MEDS: guaiFENesin ER TABLET 600 MG TAB PO SCH (08:58)
[2024-08-25] MEDS: ACETAMINOPHEN 500 MG TAB PO ONE (08:59)
[2024-08-25] MEDS: KETOROLAC 30 MG/ML 1 ML VIAL IV ONE (08:59)
[2024-08-25] MEDS: LR 1,000 ML IV ONE (08:59)
[2024-08-25 10:15] VITALS: BP 136/81; TEMP 97.2; O2SAT 98
[2024-08-25] MEDS ORDERED: ACET300T48 PO (10:45)
[2024-08-25 10:48] LABS: IONIZED CALCIUM 3.8 MG/DL (4.5-5.3)
[2024-08-25] MEDS ORDERED: HOME MED LIST COMPLETE! XX SCH (10:50)
[2024-08-25 11:03] LABS: BASO # 0.0 10^3/uL (0.0-0.2); BASO % 0.1 % (0.0-1.0); EOS # 0.0 10^3/uL (0.0-0.5); EOS % 0.0 % (0.0-3.0); LYMPH # 1.5 10^3/uL (1.5-5.0); LYMPH % 20.2 % (24.0-44.0); MONO # 0.6 10^3/uL (0.0-0.8); MONO % 7.7 % (2.0-8.0); NEUTROPHILS # 5.5 10^3/uL (1.5-8.5); NEUTROPHILS % 71.5 % (36.0-66.0); PLATELET COUNT, AUTOMATED 162 10^3/uL (150-450)
[2024-08-25 11:20] LABS: C REACTIVE PROTEIN QUANTITATIV 5.4 MG/DL (<1.0)
[2024-08-25 11:28] LABS: ALT/SGPT 26 U/L (7.0-40); AST/SGOT 55 U/L (<34); CALCIUM LEVEL 7.0 MG/DL (8.5-10.1); CARBON DIOXIDE LEVEL 21 MMOL/L (20-31); CHLORIDE LEVEL 112 MMOL/L (98-107); CREATININE FOR GFR 0.61 MG/DL (0.55-1.30); GLOMERULAR FILTRATION RATE > 90.0 (>51); MAGNESIUM LEVEL 1.7 MG/DL (1.8-2.4); PHOSPHORUS LEVEL 3.7 MG/DL (2.5-4.9); POTASSIUM SERUM 3.2 MMOL/L (3.5-5.1); SODIUM LEVEL 144 MMOL/L (136-145)
[2024-08-25] MEDS ORDERED: TRIAMCINOLONE ACET 0.1% OINTMENT 15GM TOP PRN (13:50)
[2024-08-25] MEDS: FAMOTIDINE 20 MG TAB PO SCH (16:00)
[2024-08-25] MEDS: SUCRALFATE 1 GM TAB PO SCH (16:47)
[2024-08-25] MEDS: amLODIPine 10 MG TAB PO SCH (16:48)
[2024-08-25 19:50] VITALS: BP 134/80; TEMP 98.6; O2SAT 98
[2024-08-25] MEDS: DOXEPIN 25 MG CAP PO SCH (21:35)
[2024-08-25] MEDS: GABAPENTIN 400 MG CAP PO SCH (21:36)
[2024-08-26 04:10] VITALS: BP 134/81; TEMP 98.8; O2SAT 98
[2024-08-26 06:06] LABS: BASO # 0.0 10^3/uL (0.0-0.2); BASO % 0.0 % (0.0-1.0); EOS # 0.0 10^3/uL (0.0-0.5); EOS % 0.0 % (0.0-3.0); LYMPH # 1.4 10^3/uL (1.5-5.0); LYMPH % 26.3 % (24.0-44.0); MONO # 0.5 10^3/uL (0.0-0.8); MONO % 8.7 % (2.0-8.0); NEUTROPHILS # 3.3 10^3/uL (1.5-8.5); NEUTROPHILS % 64.0 % (36.0-66.0); PLATELET COUNT, AUTOMATED 153 10^3/uL (150-450)
[2024-08-26 06:34] LABS: CALCIUM LEVEL 7.0 MG/DL (8.5-10.1); CARBON DIOXIDE LEVEL 20 MMOL/L (20-31); CHLORIDE LEVEL 113 MMOL/L (98-107); CREATININE FOR GFR 0.43 MG/DL (0.55-1.30); GLOMERULAR FILTRATION RATE > 90.0 (>51); POTASSIUM SERUM 2.6 MMOL/L (3.5-5.1); SODIUM LEVEL 145 MMOL/L (136-145)
[2024-08-26] MEDS: PANTOPRAZOLE 40MG TAB PO SCH (09:07)
[2024-08-26] MEDS: POTASSIUM CHLORIDE 10MEQ SR TABLET PO SCH (09:07)
[2024-08-26] MEDS: POTASSIUM PHOSPHATE INJ 18 MMOL in D5W 250 ML IV ONE (10:52)
[2024-08-26 12:00] VITALS: BP 128/80; TEMP 98.8
[2024-08-26 16:28] LABS: IONIZED CALCIUM 4.1 MG/DL (4.5-5.3)
[2024-08-26 17:09] LABS: MAGNESIUM LEVEL 1.6 MG/DL (1.8-2.4); POTASSIUM SERUM 4.9 MMOL/L (3.5-5.1)
[2024-08-26 19:40] VITALS: BP 130/79; TEMP 99.8; O2SAT 100
[2024-08-26 20:30] VITALS: O2SAT 97
[2024-08-27 03:44] VITALS: BP 124/77; TEMP 100.5; O2SAT 99
[2024-08-27] MEDS: ACETAMINOPHEN 325 MG TAB PO PRN (04:13)
[2024-08-27] MEDS: METOPROLOL TART 25 MG TABLET PO STA (05:06)
[2024-08-27 05:13] VITALS: TEMP 99.7
[2024-08-27 07:02] LABS: BASO # 0.0 10^3/uL (0.0-0.2); BASO % 0.2 % (0.0-1.0); EOS # 0.0 10^3/uL (0.0-0.5); EOS % 0.0 % (0.0-3.0); LYMPH # 1.3 10^3/uL (1.5-5.0); LYMPH % 25.4 % (24.0-44.0); MONO # 0.4 10^3/uL (0.0-0.8); MONO % 6.9 % (2.0-8.0); NEUTROPHILS # 3.4 10^3/uL (1.5-8.5); NEUTROPHILS % 66.5 % (36.0-66.0); PLATELET COUNT, AUTOMATED 153 10^3/uL (150-450)
[2024-08-27 07:22] LABS: CALCIUM LEVEL 7.0 MG/DL (8.5-10.1); CARBON DIOXIDE LEVEL 21 MMOL/L (20-31); CHLORIDE LEVEL 113 MMOL/L (98-107); CREATININE FOR GFR 0.42 MG/DL (0.55-1.30); GLOMERULAR FILTRATION RATE > 90.0 (>51); POTASSIUM SERUM 4.3 MMOL/L (3.5-5.1); SODIUM LEVEL 144 MMOL/L (136-145)
[2024-08-27 12:00] VITALS: BP 127/76; TEMP 99.7; O2SAT 100
[2024-08-27] MEDS ORDERED: PILL CUTTER 1 EACH XX PRN (13:45)
[2024-08-27 14:27] LABS: LDH LACTATE DEHYDROGENASE 221 U/L (120-246)
[2024-08-27 14:28] LABS: IRON (FE) 55 UG/DL (50-170)
[2024-08-27 14:29] LABS: PERCENT SATURATION 47.0 % (13.2-45.0)
[2024-08-27] MEDS: KETOROLAC 30 MG/ML 1 ML VIAL IV ONE (17:30)
[2024-08-27] MEDS: MAG SULF 1GM/100ML (MAG RUN) 1 GM in IV 1 EA IV ONE (17:45)
[2024-08-27 19:54] VITALS: BP 126/77; TEMP 99.8; O2SAT 99
[2024-08-27] MEDS: VANCOMYCIN HCL 1,250 MG, VIAL MATE ADAPTER 1 EACH in NS 250 ML IV ONE (20:10)
[2024-08-27] MEDS: LR 1,000 ML IV ONE (20:11)
[2024-08-27] MEDS: ACETAMINOPHEN 325 MG TAB PO SCH (20:57)
[2024-08-27] MEDS: CALCIUM GLUCONATE 1,000 MG in DEXTROSE 5% (D5W) MINI-BAG PLU 100 ML IV ONE (21:05)
[2024-08-27] MEDS: LevoFLOXacin IV 750 MG in IV 1 EA IV SCH (22:26)
[2024-08-27] MEDS: NS 0.45% 1,000 ML IV SCH (22:26)
[2024-08-28 04:01] VITALS: BP 147/90; TEMP 98.6; O2SAT 97
[2024-08-28] MEDS: VANCOMYCIN HCL 1,000 MG, VIAL MATE ADAPTER 1 EACH in NS 250 ML IV SCH (05:55)
[2024-08-28 06:19] LABS: BASO # 0.0 10^3/uL (0.0-0.2); BASO % 0.0 % (0.0-1.0); EOS # 0.0 10^3/uL (0.0-0.5); EOS % 0.0 % (0.0-3.0); LYMPH # 1.1 10^3/uL (1.5-5.0); LYMPH % 34.7 % (24.0-44.0); MONO # 0.3 10^3/uL (0.0-0.8); MONO % 10.0 % (2.0-8.0); NEUTROPHILS # 1.7 10^3/uL (1.5-8.5); NEUTROPHILS % 54.4 % (36.0-66.0); PLATELET COUNT, AUTOMATED 138 10^3/uL (150-450)
[2024-08-28 06:40] LABS: CALCIUM LEVEL 7.5 MG/DL (8.5-10.1); CARBON DIOXIDE LEVEL 22 MMOL/L (20-31); CHLORIDE LEVEL 111 MMOL/L (98-107); CREATININE FOR GFR 0.39 MG/DL (0.55-1.30); GLOMERULAR FILTRATION RATE > 90.0 (>51); POTASSIUM SERUM 3.6 MMOL/L (3.5-5.1); SODIUM LEVEL 142 MMOL/L (136-145)
[2024-08-28 12:00] VITALS: BP 135/87; TEMP 97.9; O2SAT 93
[2024-08-28 15:24] LABS: ANTI SMITH(Sm) AB <1.0 NEG AI (<1.0 NEG)
[2024-08-28 19:46] VITALS: BP 132/83; TEMP 99.3; O2SAT 93
[2024-08-28 20:30] VITALS: O2SAT 95
[2024-08-29 03:29] VITALS: BP 108/69; TEMP 99.1; O2SAT 93
[2024-08-29 06:44] LABS: BASO # 0.0 10^3/uL (0.0-0.2); BASO % 0.4 % (0.0-1.0); EOS # 0.0 10^3/uL (0.0-0.5); EOS % 0.0 % (0.0-3.0); LYMPH # 1.2 10^3/uL (1.5-5.0); LYMPH % 44.4 % (24.0-44.0); MONO # 0.3 10^3/uL (0.0-0.8); MONO % 10.1 % (2.0-8.0); NEUTROPHILS # 1.2 10^3/uL (1.5-8.5); NEUTROPHILS % 44.0 % (36.0-66.0); PLATELET COUNT, AUTOMATED 149 10^3/uL (150-450)
[2024-08-29 07:15] LABS: CALCIUM LEVEL 7.2 MG/DL (8.5-10.1); CARBON DIOXIDE LEVEL 22 MMOL/L (20-31); CHLORIDE LEVEL 112 MMOL/L (98-107); CREATININE FOR GFR 0.43 MG/DL (0.55-1.30); GLOMERULAR FILTRATION RATE > 90.0 (>51); POTASSIUM SERUM 3.3 MMOL/L (3.5-5.1); SODIUM LEVEL 144 MMOL/L (136-145)
[2024-08-29] MEDS: VANCOMYCIN HCL 750 MG, VIAL MATE ADAPTER 1 EACH in NS 250 ML IV SCH (08:51)
[2024-08-29 08:55] VITALS: BP 109/71
[2024-08-29 12:00] VITALS: BP 115/75; TEMP 98.6; O2SAT 96
[2024-08-29] MEDS ORDERED: LEVO75TAB PO (16:14)
[2024-08-31 20:39] LABS: ANTI DS-DNA AB NEGATIVE (NEGATIVE)
== END 2024-08-29 16:30 | disposition home or self-care (01) | DRG 347 ==
LOC: M ED 20:50 → EDBD 20:50 → M ED INP 08-25 07:29 → M MS5PR 08-25 10:10
PROVIDERS: ADMIT General Practice; ATTEND Student in an Organized Health Care Education/Training Program
DX: M48.56XA Collapsed vertebra, not elsewhere classified, lumbar region, initial encounter for fracture (principal); D61.818 Other pancytopenia; E87.20 Acidosis, unspecified; R65.10 Systemic inflammatory response syndrome (SIRS) of non-infectious origin without acute organ dysfunction; E11.42 Type 2 diabetes mellitus with diabetic polyneuropathy; M32.10 Systemic lupus erythematosus, organ or system involvement unspecified; D47.2 Monoclonal gammopathy; M35.01 Sjogren syndrome with keratoconjunctivitis; E83.51 Hypocalcemia; G89.29 Other chronic pain; M54.9 Dorsalgia, unspecified; E78.5 Hyperlipidemia, unspecified; F41.1 Generalized anxiety disorder; M19.90 Unspecified osteoarthritis, unspecified site; F43.10 Post-traumatic stress disorder, unspecified; G40.909 Epilepsy, unspecified, not intractable, without status epilepticus; J45.909 Unspecified asthma, uncomplicated; K21.9 Gastro-esophageal reflux disease without esophagitis; M46.1 Sacroiliitis, not elsewhere classified; R41.89 Other symptoms and signs involving cognitive functions and awareness; M48.061 Spinal stenosis, lumbar region without neurogenic claudication; R53.1 Weakness; B97.89 Other viral agents as the cause of diseases classified elsewhere; B97.10 Unspecified enterovirus as the cause of diseases classified elsewhere; R53.81 Other malaise; R74.01 Elevation of levels of liver transaminase levels; Z74.01 Bed confinement status; Z79.899 Other long term (current) drug therapy; Z88.0 Allergy status to penicillin; Z79.891 Long term (current) use of opiate analgesic; Z99.3 Dependence on wheelchair; Z90.49 Acquired absence of other specified parts of digestive tract; Z87.891 Personal history of nicotine dependence; Z98.84 Bariatric surgery status

== ENCOUNTER 2024-09-12 14:31 | Inpatient (IN) | payer MEDICAID, OTHER ==
[~2024-09-12] VITALS: Ht 154.9 cm; Wt 59.0 kg
[~2024-09-12 14:31] MED LIST changes: +ACET300T48 PO; +LEVO75TAB PO
[2024-09-12] MEDS: NS 500 ML IV ONE ×2 (15:05→18:39)
[2024-09-12 15:49] LABS: VENOUS BASE EXCESS -5.0 (-2.0-2.0); VENOUS HCO3 21.2 MMOL/L (23.0-27.0); VENOUS O2 SATURATION 86.4 % (60.0-80.0); VENOUS PARTIAL PRESSURE CO2 43.9 mmHg (38.0-50.0); VENOUS PARTIAL PRESSURE O2 63.1 mmHg (30.0-50.0); VENOUS PH 7.302 UNITS (7.330-7.430); VENOUS STANDARD HCO3 20.2 MMOL/L; VENOUS TOTAL CO2 22.6 MMOL/L (24.0-28.0)
[2024-09-12] MEDS: ACETAMINOPHEN *IV* 1,000 MG in IV 1 EA IV ONE (15:53)
[2024-09-12 15:54] LABS: BASO # 0.0 10^3/uL (0.0-0.2); BASO % 0.2 % (0.0-1.0); EOS # 0.0 10^3/uL (0.0-0.5); EOS % 0.2 % (0.0-3.0); LYMPH # 1.5 10^3/uL (1.5-5.0); LYMPH % 28.8 % (24.0-44.0); MONO # 0.4 10^3/uL (0.0-0.8); MONO % 8.5 % (2.0-8.0); NEUTROPHILS # 3.2 10^3/uL (1.5-8.5); NEUTROPHILS % 61.7 % (36.0-66.0)
[2024-09-12 16:24] LABS: ALT/SGPT 19 U/L (7.0-40); AST/SGOT 52 U/L (<34); CALCIUM LEVEL 7.7 MG/DL (8.5-10.1); CARBON DIOXIDE LEVEL 20 MMOL/L (20-31); CHLORIDE LEVEL 111 MMOL/L (98-107); CREATININE FOR GFR 0.66 MG/DL (0.55-1.30); GLOMERULAR FILTRATION RATE > 90.0 (>51); POTASSIUM SERUM 4.7 MMOL/L (3.5-5.1); SODIUM LEVEL 145 MMOL/L (136-145)
[2024-09-12] MEDS: NS 0.9% IV ONE (16:42)
[2024-09-12] MEDS: [UNRECOGNIZED DRUG - OTHER] IV ONE (16:42)
[2024-09-12] MEDS ORDERED: HOME MED LIST COMPLETE! XX SCH (16:55)
[2024-09-12] MEDS: LevoFLOXacin IV 750 MG in IV 1 EA IV ONE (17:47)
[2024-09-12 22:51] VITALS: BP 93/57; TEMP 97.9; O2SAT 100
[2024-09-12] MEDS: NS (Normal Saline) 0.9% 1,000 ML IV ONE (23:55)
[2024-09-12] MEDS: KETOROLAC 30 MG/ML 1 ML VIAL IV SCH (23:56)
[2024-09-12] MEDS: LACTULOSE 20 GM/30 ML SYRUP UDC PO SCH (23:56)
[2024-09-12] MEDS: PANTOPRAZOLE 20 MG TAB PO ONE (23:56)
[2024-09-12] MEDS: SUCRALFATE 1 GM TAB PO SCH (23:59)
[2024-09-13] VITALS (11 sets, daily range): BP systolic 84–128; BP diastolic 52–75; TEMP 97–97.9; O2SAT 92–100
[2024-09-13] MEDS: DOXEPIN 25 MG CAP PO SCH (00:01)
[2024-09-13] MEDS: cefTRIAXone SOD 2 GM in DEXTROSE 5% (D5W) ADV/MINI-BAG 50 ML IV SCH (05:44)
[2024-09-13 07:42] LABS: CORTISOL AM 15.7 UG/DL (4.3-22.4)
[2024-09-13 07:48] LABS: CALCIUM LEVEL 6.8 MG/DL (8.5-10.1); CARBON DIOXIDE LEVEL 20 MMOL/L (20-31); CHLORIDE LEVEL 116 MMOL/L (98-107); CREATININE FOR GFR 0.46 MG/DL (0.55-1.30); GLOMERULAR FILTRATION RATE > 90.0 (>51); MAGNESIUM LEVEL 1.8 MG/DL (1.8-2.4); PHOSPHORUS LEVEL 3.1 MG/DL (2.5-4.9); POTASSIUM SERUM 3.7 MMOL/L (3.5-5.1); SODIUM LEVEL 146 MMOL/L (136-145)
[2024-09-13 08:32] LABS: BASO # 0.0 10^3/uL (0.0-0.2); BASO % 0.0 % (0.0-1.0); EOS # 0.0 10^3/uL (0.0-0.5); EOS % 0.0 % (0.0-3.0); LYMPH # 1.2 10^3/uL (1.5-5.0); LYMPH % 31.6 % (24.0-44.0); MONO # 0.7 10^3/uL (0.0-0.8); MONO % 18.8 % (2.0-8.0); NEUTROPHILS # 1.9 10^3/uL (1.5-8.5); NEUTROPHILS % 49.1 % (36.0-66.0); PLATELET COUNT, AUTOMATED 146 10^3/uL (150-450)
[2024-09-13] MEDS: GABAPENTIN 300 MG CAP PO SCH (09:51)
[2024-09-13] MEDS: PANTOPRAZOLE 40MG TAB PO SCH (09:52)
[2024-09-13] MEDS: ENOXAPARIN 40 MG/0.4 ML SYRINGE (J1650 PER 10MG) SC SCH (09:57)
[2024-09-13] MEDS: LR 1,000 ML IV SCH (10:00)
[2024-09-13 10:44] LABS: C REACTIVE PROTEIN QUANTITATIV 2.52 MG/DL (<1.0)
[2024-09-13] MEDS: MIDODRINE 5 MG TAB PO SCH (13:34)
[2024-09-13] MEDS: MORPHINE 2 MG/ML 1 ML VIAL IV ONE (18:29)
[2024-09-13] MEDS: NS 500 ML IV ONE (18:30)
[2024-09-13] MEDS: MIDODRINE 5 MG TAB PO ONE (19:17)
[2024-09-13] MEDS: PERCOCET 5MG/325MG TAB PO PRN (20:02)
[2024-09-14] VITALS: BP 117/75; TEMP 97.6; O2SAT 100
[2024-09-14 04:18] VITALS: BP 114/71; TEMP 97.5; O2SAT 99
[2024-09-14 05:32] LABS: BASO # 0.0 10^3/uL (0.0-0.2); BASO % 0.0 % (0.0-1.0); EOS # 0.0 10^3/uL (0.0-0.5); EOS % 0.0 % (0.0-3.0); LYMPH # 1.1 10^3/uL (1.5-5.0); LYMPH % 40.5 % (24.0-44.0); MONO # 0.2 10^3/uL (0.0-0.8); MONO % 8.7 % (2.0-8.0); NEUTROPHILS # 1.3 10^3/uL (1.5-8.5); NEUTROPHILS % 50.0 % (36.0-66.0); PLATELET COUNT, AUTOMATED 123 10^3/uL (150-450)
[2024-09-14 06:03] LABS: CALCIUM LEVEL 7.2 MG/DL (8.5-10.1); CARBON DIOXIDE LEVEL 20 MMOL/L (20-31); CHLORIDE LEVEL 115 MMOL/L (98-107); CREATININE FOR GFR 0.45 MG/DL (0.55-1.30); GLOMERULAR FILTRATION RATE > 90.0 (>51); POTASSIUM SERUM 3.7 MMOL/L (3.5-5.1); SODIUM LEVEL 146 MMOL/L (136-145)
[2024-09-14 07:32] VITALS: BP 126/82; TEMP 97.4; O2SAT 100
[2024-09-14] MEDS: D5W/0.45% SODIUM CHLORIDE 1,000 ML IV SCH (10:32)
[2024-09-14 12:10] VITALS: BP 123/82; TEMP 97.6; O2SAT 100
[2024-09-14 16:00] VITALS: BP 130/75; TEMP 97.9; O2SAT 100
[2024-09-14] MEDS: CALCIUM GLUCONATE 1,000 MG in DEXTROSE 5% (D5W) MINI-BAG PLU 100 ML IV ONE (18:11)
[2024-09-14 19:02] LABS: KETONE, URINE AUTO RFX NEGATIVE (NEGATIVE); MUCUS, URINE RFX SMALL (NEGATIVE); NITRITE, URINE AUTO RFX NEGATIVE (NEGATIVE); RBC, URINE AUTO RFX 7 /HPF (0-3); SQUAM EPITHELIAL CELL UR AURFX 2 /HPF (0-6)
[2024-09-14 19:03] LABS: LEUKOCYTE ESTERASE UR AUTO RFX 3+ (NEGATIVE); WBC, URINE AUTO RFX 17 /HPF (0-3)
[2024-09-14 19:16] LABS: VITAMIN B12 LEVEL 1269.0 PG/ML (211-911)
[2024-09-14 20:33] VITALS: BP 135/77; TEMP 97.2; O2SAT 100
[2024-09-15 00:43] VITALS: BP 118/71; TEMP 96.8; O2SAT 100
[2024-09-15 03:55] VITALS: BP 136/94; TEMP 97.4; O2SAT 100
[2024-09-15 07:44] VITALS: BP 148/78; TEMP 97.4; O2SAT 100
[2024-09-15 11:27] VITALS: BP 129/73; TEMP 97.9; O2SAT 100
[2024-09-15 17:35] LABS: CALCIUM LEVEL 7.1 MG/DL (8.5-10.1); CARBON DIOXIDE LEVEL 20 MMOL/L (20-31); CHLORIDE LEVEL 114 MMOL/L (98-107); CREATININE FOR GFR 0.40 MG/DL (0.55-1.30); GLOMERULAR FILTRATION RATE > 90.0 (>51); POTASSIUM SERUM 3.6 MMOL/L (3.5-5.1); SODIUM LEVEL 145 MMOL/L (136-145)
[2024-09-15 17:42] LABS: PLATELET COUNT, AUTOMATED 121 10^3/uL (150-450)
[2024-09-15 18:03] LABS: LYMPHOCYTES 27 % (16-44); MONOCYTES 4 % (0-5); NEUTROPHILS 68 % (28-66); PLATELET ESTIMATE DECREASED (NORMAL)
[2024-09-15 18:31] VITALS: BP 147/95; TEMP 97.3; O2SAT 97
[2024-09-15 20:12] VITALS: BP 147/94; TEMP 97.5; O2SAT 97
[2024-09-16 04:57] VITALS: BP 147/94; TEMP 97.9; O2SAT 100
[2024-09-16 06:24] LABS: BASO # 0.0 10^3/uL (0.0-0.2); BASO % 0.0 % (0.0-1.0); EOS # 0.0 10^3/uL (0.0-0.5); EOS % 0.3 % (0.0-3.0); LYMPH # 1.2 10^3/uL (1.5-5.0); LYMPH % 41.3 % (24.0-44.0); MONO # 0.2 10^3/uL (0.0-0.8); MONO % 6.9 % (2.0-8.0); NEUTROPHILS # 1.5 10^3/uL (1.5-8.5); NEUTROPHILS % 50.8 % (36.0-66.0); PLATELET COUNT, AUTOMATED 113 10^3/uL (150-450)
[2024-09-16 06:45] LABS: CALCIUM LEVEL 7.2 MG/DL (8.5-10.1); CARBON DIOXIDE LEVEL 22 MMOL/L (20-31); CHLORIDE LEVEL 113 MMOL/L (98-107); CREATININE FOR GFR 0.40 MG/DL (0.55-1.30); GLOMERULAR FILTRATION RATE > 90.0 (>51); POTASSIUM SERUM 3.2 MMOL/L (3.5-5.1); SODIUM LEVEL 145 MMOL/L (136-145)
[2024-09-16] MEDS: POTASSIUM CHLORIDE 10% LIQ 20MEQ/15ML UDC PO ONE (10:15)
[2024-09-16 11:30] VITALS: BP 145/91; TEMP 97.9; O2SAT 100
[2024-09-16 19:58] VITALS: BP 143/90; TEMP 98.1; O2SAT 100
[2024-09-17 04:19] VITALS: BP 138/92; TEMP 97.7; O2SAT 100
[2024-09-17 08:12] LABS: BASO # 0.0 10^3/uL (0.0-0.2); BASO % 0.4 % (0.0-1.0); EOS # 0.0 10^3/uL (0.0-0.5); EOS % 0.4 % (0.0-3.0); LYMPH # 1.0 10^3/uL (1.5-5.0); LYMPH % 43.3 % (24.0-44.0); MONO # 0.3 10^3/uL (0.0-0.8); MONO % 12.9 % (2.0-8.0); NEUTROPHILS # 1.0 10^3/uL (1.5-8.5); NEUTROPHILS % 42.2 % (36.0-66.0); PLATELET COUNT, AUTOMATED 115 10^3/uL (150-450)
[2024-09-17 08:30] LABS: CALCIUM LEVEL 7.3 MG/DL (8.5-10.1); CARBON DIOXIDE LEVEL 20 MMOL/L (20-31); CHLORIDE LEVEL 114 MMOL/L (98-107); CREATININE FOR GFR 0.40 MG/DL (0.55-1.30); GLOMERULAR FILTRATION RATE > 90.0 (>51); POTASSIUM SERUM 3.3 MMOL/L (3.5-5.1); SODIUM LEVEL 148 MMOL/L (136-145)
[2024-09-17] MEDS: BACTRIM 160MG/800MG DS TAB PO SCH (10:26)
[2024-09-17 12:00] VITALS: BP 114/84; TEMP 97.9; O2SAT 98
[2024-09-17 16:28] LABS: PLATELET COUNT, AUTOMATED 127 10^3/uL (150-450)
[2024-09-17 17:02] LABS: ALT/SGPT 31 U/L (7.0-40); AST/SGOT 77 U/L (<34); CALCIUM LEVEL 7.4 MG/DL (8.5-10.1); CARBON DIOXIDE LEVEL 22 MMOL/L (20-31); CHLORIDE LEVEL 113 MMOL/L (98-107); CREATININE FOR GFR 0.41 MG/DL (0.55-1.30); GLOMERULAR FILTRATION RATE > 90.0 (>51); POTASSIUM SERUM 3.3 MMOL/L (3.5-5.1); SODIUM LEVEL 146 MMOL/L (136-145)
[2024-09-17 17:04] LABS: FREE T4 1.09 NG/DL (0.89-1.76)
[2024-09-17] MEDS: LACTULOSE 20 GM/30 ML SYRUP UDC PO SCH (20:40)
[2024-09-17 22:37] VITALS: BP 112/78; TEMP 97.9; O2SAT 98
[2024-09-18 04:44] VITALS: BP 112/75; TEMP 97.9; O2SAT 93
[2024-09-18 06:23] LABS: BASO # 0.0 10^3/uL (0.0-0.2); BASO % 0.3 % (0.0-1.0); EOS # 0.0 10^3/uL (0.0-0.5); EOS % 0.6 % (0.0-3.0); LYMPH # 1.4 10^3/uL (1.5-5.0); LYMPH % 40.5 % (24.0-44.0); MONO # 0.4 10^3/uL (0.0-0.8); MONO % 10.3 % (2.0-8.0); NEUTROPHILS # 1.7 10^3/uL (1.5-8.5); NEUTROPHILS % 47.7 % (36.0-66.0); PLATELET COUNT, AUTOMATED 126 10^3/uL (150-450)
[2024-09-18 06:35] LABS: CALCIUM LEVEL 7.5 MG/DL (8.5-10.1); CARBON DIOXIDE LEVEL 22 MMOL/L (20-31); CHLORIDE LEVEL 112 MMOL/L (98-107); CREATININE FOR GFR 0.42 MG/DL (0.55-1.30); GLOMERULAR FILTRATION RATE > 90.0 (>51); POTASSIUM SERUM 3.3 MMOL/L (3.5-5.1); SODIUM LEVEL 146 MMOL/L (136-145)
[2024-09-18] MEDS ORDERED: KCL 20MEQ IN 0.45NS 1000ML 1,000 ML IV SCH (08:15)
[2024-09-18] MEDS: KETOROLAC 60 MG/2 ML VIAL IM ONE (17:53)
[2024-09-18 20:03] VITALS: BP 112/78; TEMP 98.1; O2SAT 99
[2024-09-19 02:28] LABS: BORRELIA SPECIES DNA NOT DETECTED (NOT DETECT)
[2024-09-19 04:02] VITALS: BP 157/83; TEMP 97.7; O2SAT 97
[2024-09-19 06:27] LABS: CALCIUM LEVEL 7.2 MG/DL (8.5-10.1); CARBON DIOXIDE LEVEL 19 MMOL/L (20-31); CHLORIDE LEVEL 112 MMOL/L (98-107); CREATININE FOR GFR 0.51 MG/DL (0.55-1.30); GLOMERULAR FILTRATION RATE > 90.0 (>51); POTASSIUM SERUM 3.6 MMOL/L (3.5-5.1); SODIUM LEVEL 144 MMOL/L (136-145)
[2024-09-19 06:33] LABS: PLATELET COUNT, AUTOMATED 96 10^3/uL (150-450)
[2024-09-19 08:15] LABS: LYMPHOCYTES 28 % (16-44); MONOCYTES 13 % (0-5); NEUTROPHILS 59 % (28-66)
[2024-09-19 08:17] LABS: PLATELET ESTIMATE DECREASED (NORMAL)
[2024-09-19] MEDS: LACTIC ACID 12% LOTION 225 GM BTL TOP SCH (09:00)
[2024-09-19 12:00] VITALS: BP 110/85; TEMP 97.9; O2SAT 100
[2024-09-19] MEDS: LR 1,000 ML IV ONE (17:26)
[2024-09-19 20:16] VITALS: TEMP 98.2
[2024-09-19 20:17] VITALS: BP 111/85; TEMP 98.2
[2024-09-19 21:01] VITALS: O2SAT 91
[2024-09-19 21:13] LABS: ALDOS/RENIN RATIO 0.1 Ratio (0.9-28.9); ALDOSTERONE LC 1 ng/dL (see note); RENIN ACTIVITY 11.59 ng/mL/h (0.25-5.82)
[2024-09-19] MEDS: LR 1,000 ML IV SCH (21:48)
[2024-09-20 03:16] VITALS: BP 118/86; TEMP 97.3; O2SAT 94
[2024-09-20 12:03] VITALS: BP 117/86; TEMP 98.1; O2SAT 97
[2024-09-20 15:45] LABS: PLATELET COUNT, AUTOMATED 97 10^3/uL (150-450)
[2024-09-20 16:00] VITALS: BP 112/82; TEMP 97; O2SAT 95
[2024-09-20 16:14] LABS: CALCIUM LEVEL 7.4 MG/DL (8.5-10.1); CARBON DIOXIDE LEVEL 19 MMOL/L (20-31); CHLORIDE LEVEL 110 MMOL/L (98-107); CREATININE FOR GFR 0.46 MG/DL (0.55-1.30); GLOMERULAR FILTRATION RATE > 90.0 (>51); POTASSIUM SERUM 4.2 MMOL/L (3.5-5.1); SODIUM LEVEL 142 MMOL/L (136-145)
[2024-09-20 20:40] VITALS: BP 122/85; TEMP 97.7; O2SAT 95
[2024-09-21 03:33] VITALS: BP 152/89; TEMP 97; O2SAT 92
[2024-09-21 06:05] LABS: PLATELET COUNT, AUTOMATED 120 10^3/uL (150-450)
[2024-09-21 06:37] LABS: CALCIUM LEVEL 7.2 MG/DL (8.5-10.1); CARBON DIOXIDE LEVEL 22 MMOL/L (20-31); CHLORIDE LEVEL 108 MMOL/L (98-107); CREATININE FOR GFR 0.45 MG/DL (0.55-1.30); GLOMERULAR FILTRATION RATE > 90.0 (>51); POTASSIUM SERUM 3.8 MMOL/L (3.5-5.1); SODIUM LEVEL 140 MMOL/L (136-145)
[2024-09-21 12:27] VITALS: BP 137/81; TEMP 97.9; O2SAT 91
[2024-09-21] MEDS ORDERED: BACTDSTA PO (13:41)
== END 2024-09-21 17:19 | disposition hospice, home (50) | DRG 720 ==
LOC: M ED 14:31 → EDBD 14:31 → EEVIPCON 21:29 → M ED INP 21:29 → M PCU 22:36 → M MSPAV 09-15 18:28
PROVIDERS: ADMIT Internal Medicine Nephrology; ATTEND Family Medicine
DX: A41.9 Sepsis, unspecified organism (principal); E43 Unspecified severe protein-calorie malnutrition; G93.41 Metabolic encephalopathy; D61.818 Other pancytopenia; L89.152 Pressure ulcer of sacral region, stage 2; E72.20 Disorder of urea cycle metabolism, unspecified; E87.20 Acidosis, unspecified; L89.626 Pressure-induced deep tissue damage of left heel; M32.19 Other organ or system involvement in systemic lupus erythematosus; E87.8 Other disorders of electrolyte and fluid balance, not elsewhere classified; M35.01 Sjogren syndrome with keratoconjunctivitis; R16.0 Hepatomegaly, not elsewhere classified; D47.2 Monoclonal gammopathy; E87.1 Hypo-osmolality and hyponatremia; E83.51 Hypocalcemia; K75.81 Nonalcoholic steatohepatitis (NASH); J98.11 Atelectasis; K80.20 Calculus of gallbladder without cholecystitis without obstruction; M46.1 Sacroiliitis, not elsewhere classified; R41.89 Other symptoms and signs involving cognitive functions and awareness; M19.90 Unspecified osteoarthritis, unspecified site; E78.5 Hyperlipidemia, unspecified; J45.909 Unspecified asthma, uncomplicated; K21.9 Gastro-esophageal reflux disease without esophagitis; M48.061 Spinal stenosis, lumbar region without neurogenic claudication; R62.7 Adult failure to thrive; M48.56XD Collapsed vertebra, not elsewhere classified, lumbar region, subsequent encounter for fracture with routine healing; G89.29 Other chronic pain; M21.372 Foot drop, left foot; N39.0 Urinary tract infection, site not specified; F41.1 Generalized anxiety disorder; F43.10 Post-traumatic stress disorder, unspecified; L65.9 Nonscarring hair loss, unspecified; M21.371 Foot drop, right foot; E86.0 Dehydration; R33.9 Retention of urine, unspecified; Z74.01 Bed confinement status; Z98.84 Bariatric surgery status; Z90.49 Acquired absence of other specified parts of digestive tract; Z79.891 Long term (current) use of opiate analgesic; Z87.891 Personal history of nicotine dependence; Z79.899 Other long term (current) drug therapy; Z88.0 Allergy status to penicillin; B96.1 Klebsiella pneumoniae [K. pneumoniae] as the cause of diseases classified elsewhere